=== PATIENT | male | born 2005 | race Two or more races ===

== ENCOUNTER 2024-07-28 09:24 | Inpatient (IN) | payer MEDICAID, OTHER ==
[~2024-07-28] VITALS: Ht 175.3 cm; Wt 82.0 kg
--- NOTE | 2024-07-28 09:58 | ECG ---
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
--- NOTE | 2024-07-28 10:27 | ECG ---
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
--- NOTE | 2024-07-28 10:30 | ED.PDOC ---
History of Present Illness HPI Comments 18-year-old male with PMHx Anxiety presents with a chief complaint of anxiety and tachycardia. Patient is speaking in full, complete sentences. Patient reports that he was seen at [facility] and [facility] for the same chief complaint and had cardiac work-ups and was lorenza Randall. Patient reports that "they did nothing for me" and that he was only diagnosed with "Tachycardia". Patient mentions that [facility] called him about his lab work and that he should come back to the hospital, but decided to come to [facility] instead. Patient is anxious at triage and rambling. Patient continuously checking his Apple Watch for his heart rate. Patient is also requesting an echocardiogram. Chief Complaint: Anxiety Time Seen by MD: 10:16 Reviewed Notes: Medications, Allergies Allergies: Coded Allergies: NO KNOWN ALLERGIES (Unverified , 07/28/24) Information Source: Patient Mode of Arrival: Ambulatory Severity: Moderate Timing: Days Duration: Since onset Prehospital treatment: None Past Medical History PAST MEDICAL HISTORY: Anxiety Surgical History: Denies all surgeries Family History Family History: Reviewed,noncontributory to illness Social History Smoker: Non-Smoker Alcohol: Denies ETOH Use Drugs: Denies Drug Use Lives In: Home Constitutional: denies: chills, diaphoresis, fatigue, fever, malaise, sweats, weakness, others EENTM: denies: blurred vision, double vision, ear bleeding, ear discharge, ear drainage, ear pain, ear ringing, eye pain, eye redness, hearing loss, mouth pain, mouth swelling, nasal discharge, nose bleeding, nose congestion, nose pain, photophobia, tearing, throat pain, throat swelling, voice changes, others Respiratory: denies: cough, hemoptysis, orthopnea, SOB at rest, shortness of breath, SOB with excertion, stridor, wheezing, others Cardiovascular: denies: chest pain, dizzy spells, diaphoresis, Dyspnea on exertion, edema, irregular heart beat, left arm pain, lightheadedness, palpitat ions, PND, syncope, others Gastrointestinal: denies: abdomen distended, abdominal pain, blood streaked bow els, constipated, diarrhea, dysphagia, difficulty swallowing, hematemesis, melena, nausea, poor appetite, poor fluid intake, rectal bleeding, rectal pain, vomiting, others Genitourinary: denies: burning, dysuria, flank pain, frequency, hematuria, incontinence, penile discharge, penile sore, pain, testicle pain, testicle swelling, urgency, others Neurological: denies: dizziness, fainting, headache, left sided numbness, left sided weakness, numbness, paresthesia, pre-existing deficit, right sided numbness, right sided weakness, seizure, speech problems, tingling, tremors, weakness, others Musculoskeletal: denies: back pain, gout, joint pain, joint swelling, muscle pain, muscle stiffness, neck pain, others Integumetry: denies: bruises, change in color, change in hair/nails, dryness, laceration, lesions, lumps, rash, wounds, others Allergic/Immunocompromised: denies: Difficulty Healing, Frequent Infections, Hives, Itching, others Hematologic/Lymphatic: denies: anemia, blood clots, easy bleeding, easy bruising, swollen glands, others Endocrine: denies: excessive hunger, excessive sweating, excessive thirst, excessive urination, flushing, intolerance to cold, intolerance to heat, unexplained weight gain, unexplained weight loss, others Psychiatric: reports: anxiety; denies: bipolar disorder, depression, hopeless, panic disorder, schizophrenia, sleepless, suicidal, others All Other Systems: Reviewed and Negative Physical Exam General Appearance: Moderate Distress, Normal HEENT: Normal ENT Inspection, Pharynx Normal, TMs Normal Neck: Full Range of Motion, Non-Tender, Normal, Normal Inspection Respiratory: Chest Non-Tender, Lungs Clear, No Accessory Muscle Use, No Respiratory Distress, Normal Breath Sounds Cardiovascular: No Edema, No JVD, No Murmur, No Gallop, Normal Peripheral Pulses, Tachycardia Breast Exam: Deferred Gastrointestinal: No Organomegaly, Non Tender, No Pulsatile Mass, Normal Bowel Sounds, Soft Genitalia: Deferred Pelvic: Deferred Rectal: Deferred Extremities: No calf tenderness, Normal capillary refill, Normal inspection, Normal range of motion, Non-tender, No pedal edema Musculoskeletal : Apperance: Normal Neurologic: Alert, health information systems technician II-XII nml as Tested, No Motor Deficits, Normal Affect, Normal Mood, No Sensory Deficits Cerebellar Function: Normal Reflexes: Normal Skin: Dry, Normal Color, Warm Peripheral Pulses: 3+ Radial (R), 3+ Radial (L) Lymphatic: No Adenopathy Was a procedure done? Was a procedure done?: No EKG EKG : Pulse Rate (adult): 132 [place]: Normal Cardiac Rhythm: ST Block: None Hypertrophy: None ST: Normal Differential Dx Considerations may include: Tachycardia Electrolyte imbalance X-Ray, Labs, Meds, VS Vital Signs Date Time Temp Pulse Resp B/P (MAP) Pulse Ox O2 Delivery O2 Flow Rate FiO2 07/28/24 10:31 132 07/28/24 10:24 132 07/28/24 10:20 98.1 137 24 146/84 (104) 99 98.1 109/64 (79) 07/28/24 09:41 98.3 116 17 152/106 (121) 95 07/28/24 09:29 122 Lab Test 07/28/24 10:48 Range/Units White Blood Count 9.3 4.4-10.8 10^3/uL Red Blood Count 4.96 4.5-5.90 10^6/uL Hemoglobin 14.2 13.5-17.5 g/dL Hematocrit 42.2 41.0-53.0 % Mean Corpuscular Volume 85.1 80.0-100.0 fL Mean Corpuscular Hemoglobin 28.6 28.0-32.0 pg Mean Corpuscular Hemoglobin Concent 33.7 32.0-36.0 g/dL Red Cell Distribution Width 13.9 11.8-14.3 % Platelet Count 268 140-450 10^3/uL Mean Platelet Volume 9.8 6.9-10.8 fL Neutrophils (%) (Auto) 66.0 37.0-80.0 % Lymphocytes (%) (Auto) 22.0 10.0-50.0 % Monocytes (%) (Auto) 9.8 0.0-12.0 % Eosinophils (%) (Auto) 1.9 0.0-7.0 % Basophils (%) (Auto) 0.3 0.0-2.0 % Neutrophils # (Auto) 6.1 1.6-8.6 10 ^3/uL Lymphocytes # (Auto) 2.0 0.4-5.4 10 ^3/uL Monocytes # (Auto) 0.9 0-1.3 10 ^3/uL Eosinophils # (Auto) 0.2 0-0.8 10 ^3/uL Basophils # (Auto) 0 0-0.2 10 ^3/uL Nucleated Red Blood Cells 0.1 % Sodium Level 140 136-145 mmol/L Potassium Level 3.4 L 3.5-5.1 mmol/L Chloride Level 108 H 98-107 mmol/L Carbon Dioxide Level 14 L 20-31 mmol/L Anion Gap 18 H 5-15 Blood Urea Nitrogen 10 9-23 mg/dL Creatinine 0.85 0.700-1.30 mg/dL Glomerular Filtration Rate Calc 128 >90 mL/min BUN/Creatinine Ratio 11.8 10.0-20.0 Serum Glucose 96 74-106 mg/dL Calcium Level 11.2 H 8.7-10.4 mg/dL Troponin I High Sensitivity 4 </=54 ng/L Current Medications Medications (Trade) Dose Ordered Sig/Temo Route Start Time Stop Time Status Last Admin Sodium Chloride 1,000 ml @ 1,000 mls/hr Q1H ONCE IV 07/28/24 10:30 07/28/24 11:29 DC 07/28/24 10:53 Lorazepam (Ativan Inj) 1 mg ONCE ONCE IV 07/28/24 10:30 07/28/24 10:31 DC 07/28/24 10:52 Ondansetron HCl (Zofran) 4 mg ONCE ONCE IV 07/28/24 10:30 07/28/24 10:31 DC 07/28/24 10:52 Patient alert. Increased heart rate. Saturation pristine on room air. Blood pressure slightly elevated. Potassium slightly low. EKG does show sinus tachycardia. Was given Ativan. Was given Zofran. Establish intravenous access. Was given fluids. Cardiac marker within normal limits. Echocardiogram. Cardiology consultation. Thyroid function tests. Explained to the patient. Continue cardiac monitoring. Chest x-ray reviewed does not show any acute changes. Time of 1ST Reevaluation: 10:46 Reevaluation 1ST: Unchanged Patient Education/Counseling: Diagnosis, Treatment, Prognosis Family Education/Counseling: Diagnosis, Treatment, Prognosis Departure 1 Departure Time of Disposition: 12:03 Impression: Primary Impression: Cardiomyopathy Qualified Codes: I42.9 - Cardiomyopathy, unspecified Additional Impression: Tachycardia Disposition: ADMITTED INPATIENT Admit to: Med Surg Condition: Guarded Critical Care Note Critical Care Time?: Yes (45 min-critical care time only) Critical care comment: Continues to have increased heart rate Stability Stability form required: No Heart Score Heart Score: Heart Score Response (Comments) Value History Slightly Suspicious 0 EKG Normal 0 Age <45 0 Risk Factors No known risk factors 0 Troponin Normal limit 0 Total 0 I personally scribed for DAPHNE BATES MD ([email or web address]) on 07/28/24 at 10:30. Electronically submitted by Van Gutierrez ([email or web address]). I personally scribed for DAPHNE BATES MD ([email or web address]) on 07/28/24 at 10:31. Electronically submitted by Van Gutierrez ([email or web address]). DAPHNE BATES MD Jul 28, 2024 10:30
[2024-07-28] MEDS: LORazepam 2MG/ML-1ML VIAL IV ONE (10:52)
[2024-07-28] MEDS: ONDANSETRON HCL 4 MG/2 ML VIAL IV ONE (10:52)
[2024-07-28] MEDS: SODIUM CHLORIDE 0.9% 1,000 ML IV ONE (10:53)
--- NOTE | 2024-07-28 11:14 | DVH ---
CHEST RADIOGRAPH Indication: sob Technique: Single frontal view of the chest was obtained Comparison: None FINDINGS: Lines and Tubes: None Lungs: No focal consolidation. Pleura: No effusion. No pneumothorax. Cardiomediastinal contours: Unremarkable Bones: No acute osseous abnormality. IMPRESSION: No acute cardiopulmonary disease.
[2024-07-28 11:27] LABS: Basophils # (auto) 0 10 ^3/uL (0-0.2); Basophils % (auto) 0.3 % (0.0-2.0); Eosinophils # (auto) 0.2 10 ^3/uL (0-0.8); Eosinophils % (auto) 1.9 % (0.0-7.0); Hematocrit 42.2 % (41.0-53.0); Hemoglobin 14.2 g/dL (13.5-17.5); Mean Corpuscular Hemoglobin 28.6 pg (28.0-32.0); Mean Corpuscular Hgb Conc. 33.7 g/dL (32.0-36.0); Mean Corpuscular Volume 85.1 fL (80.0-100.0); Monocytes # (auto) 0.9 10 ^3/uL (0-1.3); Monocytes % (auto) 9.8 % (0.0-12.0); Neutrophils # (auto) 6.1 10 ^3/uL (1.6-8.6); Nucleated Red Blood Cells % 0.1 %; Platelet Count (auto) 268 10^3/uL (140-450); Red Blood Cells 4.96 10^6/uL (4.5-5.90); Red Cell Distribution Width 13.9 % (11.8-14.3); White Blood Cell 9.3 10^3/uL (4.4-10.8)
[2024-07-28 11:47] LABS: Sodium 140 mmol/L (136-145)
[2024-07-28 11:48] LABS: Anion Gap 18 (5-15)
[2024-07-28 11:53] LABS: BUN/Creatinine Ratio 11.8 (10.0-20.0); Blood Urea Nitrogen 10 mg/dL (9-23); Glucose 96 mg/dL (74-106)
[2024-07-28 11:57] LABS: Calcium 11.2 mg/dL (8.7-10.4); Carbon Dioxide 14 mmol/L (20-31); Chloride 108 mmol/L (98-107); Potassium 3.4 mmol/L (3.5-5.1)
[2024-07-28 13:15] VITALS: PULSE 120; RESP 20; O2SAT 98
[2024-07-28] MEDS ORDERED: DOCUSATE SOD 100 MG CAP PO PRN (14:15)
[2024-07-28] MEDS ORDERED: ONDANSETRON HCL 4 MG/2 ML VIAL IV PRN (14:15)
[2024-07-28] MEDS ORDERED: MORPHINE SULFATE INJ 2 MG/ml SYRG IV PRN (14:15)
[2024-07-28] MEDS ORDERED: ACETAMINOPHEN 325 MG TAB PO PRN (14:15)
[2024-07-28] MEDS ORDERED: NITROGLYCERIN 0.4 MG SL TAB SL PRN (14:15)
--- NOTE | 2024-07-28 14:32 | DVHHP2 ---
History of Present Illness Reason for Visit: Tachycardia History of Present Illness Leland Abarca is a 18-year-old male with no significant past medical history who comes in due to tachycardia. The patient states he has been to multiple hospitals multiple times due to his anxiety and tachycardia and they are not helping him. They tell him his labs are normal and to follow up with his primary care provider. The patient states he wakes up and his heart rate is 120-140's. When he gets up or eats his heart rate goes even higher. He states he is scared to eat and that he is going to soon. Past Surgical History: None Smoke: No ALCOHOL: none Drugs: None Lives: with Family Domestic Violence: Neg Review of Systems Constitutional: No: Fever, Chills, Sweats, Weakness, Malaise, Other Eyes: No: Pain, Vision change, Conjunctivae inflammation, Eyelid inflammation, Other, Redness ENT: No: Ear pain, Ear discharge, Nose pain, Nose discharge, Nose congestion, Mouth pain, Mouth swelling, Throat pain, Throat swelling, Other Respiratory: No: Cough, Dry, Shortness of breath, SOB with excertion, Wheezing, Hemoptysis, Pleuritic Pain, Sputum, Wheezing, Other Cardiovascular: Palpitations; No: Chest Pain, Orthopnea, Paroxysmal Noc. Dyspnea, Edema, Lt Headedness, Other Gastrointestinal: No: Nausea, Vomiting, Abdominal Pain, Diarrhea, Constipation, Melena, Hematochezia, Other Genitourinary: No Dysuria, No Frequency, No Incontinence, No Hematuria, No Retention, No Other Musculoskeletal: No: other, neck pain, shoulder pain, arm pain, back pain, hand pain, leg pain, foot pain Skin: No: Rash, Lesions, Jaundice, Bruising, Other Neurological: No: Weakness, Numbness, Incoordination, Change in speech, Confusion, Seizures, Other Allergies: Coded Allergies: NO KNOWN ALLERGIES (Unverified , 07/28/24) Medications Current Medications Medications Dose Ordered Sig/Temo Route Start Time Stop Time Status Last Admin Dose Admin Acetaminophen/ Hydrocodone Bitart 1 tab Q4HP PRN PO 07/28/24 14:15 UNV Ondansetron HCl 4 mg Q4HP PRN IV 07/28/24 14:15 UNV Docusate Sodium 100 mg BIDPRN PRN PO 07/28/24 14:15 UNV Acetaminophen 650 mg Q6HP PRN PO 07/28/24 14:15 UNV Nitroglycerin 0.4 mg Q5MINP PRN SL 07/28/24 14:15 UNV Morphine Sulfate 2 mg Q30M PRN IV 07/28/24 14:15 UNV Exam Vital Signs Vital Signs Date Time Temp Pulse Resp B/P (MAP) Pulse Ox O2 Delivery O2 Flow Rate FiO2 07/28/24 14:00 121 20 130/79 (96) 99 07/28/24 13:15 Room Air* 0 21 07/28/24 10:20 98.1 98.1 General Appearance: Alert, Oriented X3, Cooperative, Other (anxious) HEENT: Atraumatic, PERRLA Respiratory: Clear to auscultation, Normal air movement Cardiovascular: Normal S1, Normal S2, Other (Tachycardia) Abdominal: Normal bowel sounds, Soft, No tenderness, No hepatospenomegaly Extremities: No clubbing, No cyanosis, No edema, Normal pulses Skin: No rashes, No breakdown, No significant lesion Neuro: Normal gait, Normal speech, Strength at 5/5 X4 ext, Normal tone Psych/Mental Status: Mental status NL, Mood NL Labs/Xrays Labs Test 07/28/24 10:48 Range/Units White Blood Count 9.3 4.4-10.8 10^3/uL Red Blood Count 4.96 4.5-5.90 10^6/uL Hemoglobin 14.2 13.5-17.5 g/dL Hematocrit 42.2 41.0-53.0 % Mean Corpuscular Volume 85.1 80.0-100.0 fL Mean Corpuscular Hemoglobin 28.6 28.0-32.0 pg Mean Corpuscular Hemoglobin Concent 33.7 32.0-36.0 g/dL Red Cell Distribution Width 13.9 11.8-14.3 % Platelet Count 268 140-450 10^3/uL Mean Platelet Volume 9.8 6.9-10.8 fL Neutrophils (%) (Auto) 66.0 37.0-80.0 % Lymphocytes (%) (Auto) 22.0 10.0-50.0 % Monocytes (%) (Auto) 9.8 0.0-12.0 % Eosinophils (%) (Auto) 1.9 0.0-7.0 % Basophils (%) (Auto) 0.3 0.0-2.0 % Neutrophils # (Auto) 6.1 1.6-8.6 10 ^3/uL Lymphocytes # (Auto) 2.0 0.4-5.4 10 ^3/uL Monocytes # (Auto) 0.9 0-1.3 10 ^3/uL Eosinophils # (Auto) 0.2 0-0.8 10 ^3/uL Basophils # (Auto) 0 0-0.2 10 ^3/uL Nucleated Red Blood Cells 0.1 % Sodium Level 140 136-145 mmol/L Potassium Level 3.4 L 3.5-5.1 mmol/L Chloride Level 108 H 98-107 mmol/L Carbon Dioxide Level 14 L 20-31 mmol/L Anion Gap 18 H 5-15 Blood Urea Nitrogen 10 9-23 mg/dL Creatinine 0.85 0.700-1.30 mg/dL Glomerular Filtration Rate Calc 128 >90 mL/min BUN/Creatinine Ratio 11.8 10.0-20.0 Serum Glucose 96 74-106 mg/dL Calcium Level 11.2 H 8.7-10.4 mg/dL Troponin I High Sensitivity 4 </=54 ng/L CHEST RADIOGRAPH FINDINGS: Lines and Tubes: None Lungs: No focal consolidation. Pleura: No effusion. No pneumothorax. Cardiomediastinal contours: Unremarkable Bones: No acute osseous abnormality. IMPRESSION: No acute cardiopulmonary disease. Assessment/Plan Assessment/Plan Assessment: Tachycardia, Severe anxiety, Plan: Admit to Tele, Cardiology, ECHO, Lipid panel, Mange/Monitor electrolytes closely, 2gm NA diet, Plan discussed with: Patient My Orders Orders - RALPH SHANKS Procedure Category Date Status Time Admit ADMIT 07/28/24 Transmitted 14:15 Code Status CODE 07/28/24 Transmitted 14:15 2 Gm Sodium Diet DIET 07/28/24 Transmitted Dinner Hydrocodone-Acet PHA 07/28/24 Logged 5/325mg Tab ([place] 14:15 Ondansetron Hcl PHA 07/28/24 Transmitted (Zofran) 14:15 Docusate Sodium PHA 07/28/24 Transmitted Capsule (Colace 14:15 Complete Blood Count LAB 07/29/24 Verified 04:00 Comprehensive LAB 07/29/24 Verified Metabolic Panel 04:00 Echo 2d Mode Cardiac US 07/28/24 Logged DOP 14:15 Condition: Serious [facility] 07/28/24 In Process 14:15 Acetaminophen Tablet PHA 07/28/24 Transmitted (Tylenol Tablet) 14:15 Nitroglycerin [facility] 07/28/24 Transmitted Sublingual (Ntrostat 14:15 Morphine Sulfate [facility] 07/28/24 Transmitted Injection 14:15 Stat Ekg For Chest [facility] 07/28/24 In Process Pain 14:15 Notify Md Of Changes [facility] 07/28/24 In Process From Base 14:15 Priming Mixture Carrier For [facility] 07/28/24 In Process 24 Hours 14:15 Emergency Dysrhythmia [facility] 07/28/24 In Process Protocol 14:15 Rhythm Strips Once [facility] 07/28/24 In Process Every Shift 14:15 Oxygen By Nasal RT 07/28/24 Transmitted Cannula 14:15 * Cardiology Consult CONS 07/28/24 Transmitted 14:15 Date of Service: Jul 28, 2024 Billing Provider: RALPH SHANKS Common Visit Codes: [id number] INP/OBS CARE (MOD) RALPH SHANKS Jul 28, 2024 14:32
[2024-07-28] MEDS: POTASSIUM CHL 20 Meq TABLET PO ONE (15:00)
--- NOTE | 2024-07-28 16:14 | DVHINCON2 ---
Date Seen: Jul 28, 2024 Referring Physician LUZ MARIA Beckman Reason for Consultation Tachycardia History of Present Illness This is a 18-year-old male patient who presents to the emergency room with chief complaint of tachycardia for three weeks. The patient reports being seen at multiple emergency rooms including [facility] and [facility] for the same reason and was told that he has anxiety. The patient reports being concerned about his heart rate so he decided to come to this facility for further evaluation. Initial twelve lead electrocardiogram reveals sinus tachycardia. 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 Significant past medical history includes anxiety. The patient denies any previous medical history. He reports checking his pulse through his Apple watch at home. He denies any illicit drug use and denies any caffeine intake. Past Medical History Past medical history reviewed. No other significant than mentioned above. Past Surgical History Denies all previous surgeries Family History Family history reviewed. Social History Denies the use of tobacco, alcohol or illicit drugs. Allergies: Coded Allergies: NO KNOWN ALLERGIES (Unverified , 07/28/24) Home Meds Denies any prescribed medications Current Medications Current Medications Medications (Trade) Dose Ordered Sig/Temo Route PRN Reason Start Time Stop Time Status Last Admin Acetaminophen/ Hydrocodone Bitart ([place] 5/325MG Tab) 1 tab Q4HP PRN PO MODERATE PAIN (4-6 PAIN SCALE) 07/28/24 14:15 Ondansetron HCl (Zofran) 4 mg Q4HP PRN IV NAUSEA / VOMITING 07/28/24 14:15 Docusate Sodium (Colace Capsule) 100 mg BIDPRN PRN PO FOR CONSTIPATION 07/28/24 14:15 Acetaminophen (Tylenol Tablet) 650 mg Q6HP PRN PO PAIN SCALE 1-3 OR TEMP>100.4 07/28/24 14:15 Nitroglycerin (Ntrostat Sublingual) 0.4 mg Q5MINP PRN SL FOR CHEST PAIN 07/28/24 14:15 Morphine Sulfate 2 mg Q30M PRN IV FOR CHEST PAIN 07/28/24 14:15 Review of Systems Constitutional: No symptom reported Ears, Nose, & Throat: No symptom reported Eyes: No symptom reported Neurological: No symptoms reported Pulmonary/Respiratory: No symptoms reported Cardiovascular: Tachycardia Gastrointestinal: No symptom reported Genitourinary: No symptom reported Musculoskeletal: No symptom reported Skin: No symptom reported Psychiatric: No symptom reported Endocrine: No symptom reported Hematologic/Lymphatic: No symptom reported Vital Signs Vital Signs Date Time Temp Pulse Resp B/P (MAP) Pulse Ox O2 Delivery O2 Flow Rate FiO2 07/28/24 14:00 121 20 130/79 (96) 99 07/28/24 13:15 Room Air* 0 21 07/28/24 10:20 98.1 98.1 Physical Exam General Appearance: Cooperative. Well-developed. Well-nourished. No acute distress. Pulmonary/Respiratory: Clear, bilateral breaths sounds. Cardiovascular/Chest: Regular rate and rhythm. Peripheral Pulses: 2+ Radial (R). 2+ Radial (L). 2+ Pedal (R). 2+ Pedal (L) Abdominal Exam: Normal bowel sounds. Ankle Exam: Negative ankle edema Lower extremities: Negative lower extremity edema Neuro/Mental Status: A/OX4, coherent. Thoughts/Psych: Normal thought pattern. Appropriate mood and affect. Good judgment and insight. Appearance: No acute distress. Skin Exam: Normal inspection. Normal color. Warm and dry. Labs/Diagnostic Data Labs Test 07/28/24 10:48 Range/Units White Blood Count 9.3 4.4-10.8 10^3/uL Red Blood Count 4.96 4.5-5.90 10^6/uL Hemoglobin 14.2 13.5-17.5 g/dL Hematocrit 42.2 41.0-53.0 % Mean Corpuscular Volume 85.1 80.0-100.0 fL Mean Corpuscular Hemoglobin 28.6 28.0-32.0 pg Mean Corpuscular Hemoglobin Concent 33.7 32.0-36.0 g/dL Red Cell Distribution Width 13.9 11.8-14.3 % Platelet Count 268 140-450 10^3/uL Mean Platelet Volume 9.8 6.9-10.8 fL Neutrophils (%) (Auto) 66.0 37.0-80.0 % Lymphocytes (%) (Auto) 22.0 10.0-50.0 % Monocytes (%) (Auto) 9.8 0.0-12.0 % Eosinophils (%) (Auto) 1.9 0.0-7.0 % Basophils (%) (Auto) 0.3 0.0-2.0 % Neutrophils # (Auto) 6.1 1.6-8.6 10 ^3/uL Lymphocytes # (Auto) 2.0 0.4-5.4 10 ^3/uL Monocytes # (Auto) 0.9 0-1.3 10 ^3/uL Eosinophils # (Auto) 0.2 0-0.8 10 ^3/uL Basophils # (Auto) 0 0-0.2 10 ^3/uL Nucleated Red Blood Cells 0.1 % Sodium Level 140 136-145 mmol/L Potassium Level 3.4 L 3.5-5.1 mmol/L Chloride Level 108 H 98-107 mmol/L Carbon Dioxide Level 14 L 20-31 mmol/L Anion Gap 18 H 5-15 Blood Urea Nitrogen 10 9-23 mg/dL Creatinine 0.85 0.700-1.30 mg/dL Glomerular Filtration Rate Calc 128 >90 mL/min BUN/Creatinine Ratio 11.8 10.0-20.0 Serum Glucose 96 74-106 mg/dL Hemoglobin A1c 5.0 <5.7 % A1C Calcium Level 11.2 H 8.7-10.4 mg/dL Troponin I High Sensitivity 4 </=54 ng/L Thyroid Stimulating Hormone (TSH) 2.95 0.55-4.78 uIU/mL Assessment Sinus tachycardia with multiple PVCs Rule out structural heart disease Hypokalemia Anxiety Plan/Recommendation We will continue with the following plan/recommendations (Dr. Ching): We will proceed with obtaining a transthoracic echocardiogram to evaluate cardiac function. In the meantime, we will initiate the patient on a low-dose beta-vidhi. We will also recommend to monitor and replete electrolytes as needed. Check urine drug screen and TSH level. Continue with close cardiac surveillance. Thank you for allowing us to care for this patient. Please call with any questions or concerns. Critical care time spent: 41 minutes This medical document was created using an electronic medical record system with voice recognition software and computerized dictation system. Although this document has been carefully reviewed, there might still be some phonetic and typographical errors. Occasional wrong-word or ``sound-alike substitutions may have occurred due to the inherent limitations of voice recognition software. These areas are purely typographical due to imperfections of the software programs and do not reflect any compromise in the patient's medical care. Please read the chart carefully and recognize, using context, where these substitutions have occurred. Plan discussed with: Patient NYHA Physical activity limitations: NA Date of Service: Jul 28, 2024 Billing Provider: ISA GREGG Cardiology Common Codes: [id number] INP/OBS CARE (High) Cardiology Consultation Codes: [id number] CONSULT <45MIN ISA GREGG Jul 28, 2024 16:14
--- NOTE | 2024-07-28 17:49 | DVHSR ---
APPROVED REPORT EXAM: Two-dimensional and M-mode echocardiogram with Doppler and color Doppler. Blood Pressure: 130/79 mmHg INDICATION Tachycardia RISK FACTORS Height: 5'9", Weight: 186 DIMENSIONS LVDd4.0 (3.8-5.7cm)LA (2D)3.5 (1.9-4.0cm)Aortic Root2.9 (2.0-3.7cm) LVDs2.8 (2.5-4.0cm)LA (MM) (1.9-4.0cm)Aortic Cusp Exc1.6 (1.5-2.0cm) EF (%) 57.0 (55-70%)Rt. Atrium3.3 (1.9-4.0cm)Asc. Aorta cm IVSd1.1 (0.7-1.1cm)RV (D) (1.8-2.4cm) PWd1.0 (0.7-1.1cm) Mitral Valve MitralMitral Stenosis E wave0.84m/sMV Mean GR.mmHg A wave0.68m/sMV Peak GR.mmHg E/A ratio1.22D MVAcm2 DECEL [id number] 1/2 [place] Aortic Valve Aortic ValveAortic Stenosis V10.92m/[place] Mean GR.3mmHg V21.42m/[place] Peak GR.8mmHg LVOT Diameter2.1 (1.8-2.4cm)Doppler AVA2.24cm2 Pulmonic Valve V21.36m/s Tricuspid Valve TR Velocity2.74m/s [id number] Other Information Quality : Rhythm : Tachycardia, PVC's Technically limited study due to body habitus. Conclusion lvef 60% by visual estimate normal rv function no severe valve abnormaliteis noted
[2024-07-28 18:16] LABS: Urine Bacteria None Seen /hpf (None Seen); Urine Blood Negative /uL (Negative); Urine Clarity Clear (Clear); Urine Color Light-Yellow (Yellow); Urine Mucus FEW (None Seen); Urine Protein, UAD Negative (Negative); Urine Specific Gravity 1.019 (1.001-1.035); Urine Squamous Epithelial Cell None Seen /hpf (<5); Urine Urobilinogen Normal (Negative); Urine WBC 1 /HPF (0-3); Urine pH 5.5 (5.0-9.0)
[2024-07-28 18:59] LABS: Potassium 4.3 mmol/L (3.5-5.1)
[2024-07-28] MEDS: METOPROLOL TARTRATE 25 MG TAB PO SCH (21:59)
[2024-07-29] VITALS (8 sets, daily range): BP systolic 113–131; BP diastolic 63–78; PULSE 94–114; RESP 16–18; TEMP 97.4–98.6; O2SAT 96–99
[2024-07-29 06:04] LABS: Basophils # (auto) 0 10 ^3/uL (0-0.2); Basophils % (auto) 0.4 % (0.0-2.0); Eosinophils # (auto) 0.2 10 ^3/uL (0-0.8); Eosinophils % (auto) 2.9 % (0.0-7.0); Hematocrit 40.7 % (41.0-53.0); Hemoglobin 13.6 g/dL (13.5-17.5); Lymphocytes % (auto) 23.9 % (10.0-50.0); Mean Corpuscular Hemoglobin 28.7 pg (28.0-32.0); Mean Corpuscular Hgb Conc. 33.5 g/dL (32.0-36.0); Mean Corpuscular Volume 85.6 fL (80.0-100.0); Monocytes # (auto) 0.8 10 ^3/uL (0-1.3); Monocytes % (auto) 9.4 % (0.0-12.0); Neutrophils # (auto) 5.4 10 ^3/uL (1.6-8.6); Neutrophils % (auto) 63.4 % (37.0-80.0); Nucleated Red Blood Cells % 0.2 %; Platelet Count (auto) 258 10^3/uL (140-450); Red Blood Cells 4.75 10^6/uL (4.5-5.90); Red Cell Distribution Width 13.9 % (11.8-14.3); White Blood Cell 8.5 10^3/uL (4.4-10.8)
[2024-07-29 06:09] LABS: Alanine Aminotransferase 21 U/L (7-40); Alkaline Phosphatase 74 U/L (46-116); Anion Gap 13 (5-15); BUN/Creatinine Ratio 9.4 (10.0-20.0); Chloride 106 mmol/L (98-107); Glucose 94 mg/dL (74-106); Potassium 4.1 mmol/L (3.5-5.1); Sodium 138 mmol/L (136-145)
[2024-07-29 06:10] LABS: Bilirubin, Total 0.6 mg/dL (0.2-1.0); Total Protein 7.8 g/dL (5.7-8.2)
[2024-07-29 06:11] LABS: Albumin 5.1 g/dL (3.2-4.8); Aspartate Aminotransferase 11 U/L (13-40); Blood Urea Nitrogen 8 mg/dL (9-23); Calcium 10.5 mg/dL (8.7-10.4); Carbon Dioxide 19 mmol/L (20-31)
[2024-07-29] MEDS: MAGNESIUM OXIDE 400 MG TAB PO SCH (09:10)
--- NOTE | 2024-07-29 14:13 | DVHPN2 ---
Consult Progress Note Subjective Other Systems: Patient in normal sinus rhythm/ sinus tachycardia (rate low 100's) at time of assessment in ER holding area. Objective vital signs Vital Sign Date Time Temp Pulse Resp B/P (MAP) Pulse Ox O2 Delivery O2 Flow Rate FiO2 07/29/24 13:00 97.8 111 17 131/77 (95) 98 97.8 07/29/24 05:18 Room Air* 0 21 Total Intake and Output 07/28/24 07/28/24 07/29/24 15:00 23:00 07:00 Intake Total 1000 ml Balance 1000 ml medications Current Medications Medications Dose Ordered Sig/Temo Route Start Time Stop Time Status Last Admin Dose Admin Acetaminophen/ Hydrocodone Bitart 1 tab Q4HP PRN PO 07/28/24 14:15 Ondansetron HCl 4 mg Q4HP PRN IV 07/28/24 14:15 Docusate Sodium 100 mg BIDPRN PRN PO 07/28/24 14:15 Acetaminophen 650 mg Q6HP PRN PO 07/28/24 14:15 Nitroglycerin 0.4 mg Q5MINP PRN SL 07/28/24 14:15 Morphine Sulfate 2 mg Q30M PRN IV 07/28/24 14:15 Metoprolol Tartrate 12.5 mg BID PO 07/28/24 22:00 07/29/24 09:10 12.5 MG Magnesium Oxide 400 mg DAILY PO 07/29/24 10:00 07/29/24 09:10 400 MG Sodium Chloride 1,000 ml @ 100 mls/hr Q10H IV 07/29/24 14:00 Examination: GENERAL:Normal, LUNGS:Normal, CVS:Normal, NEURO:Normal laboratory and microbiology Laboratory Tests 07/29/24 05:32 Test 07/29/24 05:32 Range/Units Serum Glucose 94 74-106 mg/dL Problem List/Assessment/Plan Problem List/Assessment/Plan Sinus tachycardia with multiple PVCs Hypokalemia Hypercalcemia Anxiety Plan/Recommendation (Dr. Ching): Plan discussed and reviewed with . Transthoracic echocardiogram reveals EF 60%. Continue low-dose beta-vidhi. We will also recommend to monitor and replete electrolytes as needed. At this time, there is no further inpatient cardiac workup deemed necessary. Thank you for allowing us to care for this patient. Please call with any questions or concerns. This medical document was created using an electronic medical record system with voice recognition software and computerized dictation system. Although this document has been carefully reviewed, there might still be some phonetic and typographical errors. Occasional wrong-word or ``sound-alike substitutions may have occurred due to the inherent limitations of voice recognition software. These areas are purely typographical due to imperfections of the software programs and do not reflect any compromise in the patient's medical care. Please read the chart carefully and recognize, using context, where these substitutions have occurred Plan discussed with: Patient Date of Service: Jul 29, 2024 Billing Provider: ISA GREGG Common Visit Codes: [id number] INP/OBS CARE(HIGH) ISA GREGG Jul 29, 2024 14:13
[2024-07-29] MEDS: SODIUM CHLORIDE 0.9% 1,000 ML IV SCH (14:16)
--- NOTE | 2024-07-29 15:12 | DVHPN2 ---
Subjective Continues to report palpitations, high heart rate, anxiety. Reviewed: Care Plan, H&P, Labs, Medications Changes from previous H/P or p: No Changes General: Per HPI Eyes: No Pain, No Vision change, No Conjunctivae inflammation, No Eyelid inflammation, No Other, No Redness ENT: No Ear pain, No Ear discharge, No Nose pain, No Nose discharge, No Nose congestion, No Mouth pain, No Mouth swelling, No Throat pain, No Throat swelling, No Other Cardiovascular: No Chest Pain; Palpitations; No Orthopnea, No Paroxysmal Noc. Dyspnea, No Edema, No Lt Headedness, No Other Respiratory: No Cough, No Dry, No Shortness of breath, No SOB with excertion, No Wheezing, No Hemoptysis, No Pleuritic Pain, No Sputum, No Other Gastrointestinal: No Nausea, No Vomiting, No Abdominal Pain, No Diarrhea, No Constipation, No Melena, No Hematochezia, No Other Genitourinary: No Dysuria, No Frequency, No Incontinence, No Hematuria, No Retention, No Other Musculoskeletal: No other, No neck pain, No shoulder pain, No arm pain, No back pain, No hand pain, No leg pain, No foot pain Skin: No Rash, No Lesions, No Jaundice, No Bruising, No Other Objective Vitals Vital Signs Date Time Temp Pulse Resp B/P (MAP) Pulse Ox O2 Delivery O2 Flow Rate FiO2 07/29/24 13:00 97.8 111 17 131/77 (95) 98 97.8 07/29/24 05:18 Room Air* 0 21 Intake/Output Intake and Output 07/29/24 07:00 Intake Total 1000 ml Balance 1000 ml IV Total 1000 ml General Appearance: Alert, Oriented X3, Cooperative, No acute distress HEENT: Atraumatic, PERRLA Lungs: Clear to auscultation, Normal air movement Cardiovascular: Normal S1, Normal S2, Other (Sinus tachycardia with unifocal PVC) Abdomen: Normal bowel sounds, Soft, No tenderness Back: Flank Tenderness, Midline Tenderness Neuro: Normal gait, Normal speech Skin: Dry, Intact Psych/Mental Status: Mental status NL, Mood NL Medications Current Medications Medications Dose Ordered Sig/Temo Route Start Time Stop Time Status Last Admin Dose Admin Acetaminophen/ Hydrocodone Bitart 1 tab Q4HP PRN PO 07/28/24 14:15 Ondansetron HCl 4 mg Q4HP PRN IV 07/28/24 14:15 Docusate Sodium 100 mg BIDPRN PRN PO 07/28/24 14:15 Acetaminophen 650 mg Q6HP PRN PO 07/28/24 14:15 Nitroglycerin 0.4 mg Q5MINP PRN SL 07/28/24 14:15 Morphine Sulfate 2 mg Q30M PRN IV 07/28/24 14:15 Metoprolol Tartrate 12.5 mg BID PO 07/28/24 22:00 07/29/24 09:10 12.5 MG Magnesium Oxide 400 mg DAILY PO 07/29/24 10:00 07/29/24 09:10 400 MG Sodium Chloride 1,000 ml @ 100 mls/hr Q10H IV 07/29/24 14:00 07/29/24 14:16 100 MLS/HR Laboratory Results Laboratory Tests 07/29/24 05:32 Chemistry Test 07/28/24 18:30 07/29/24 05:32 Magnesium Level 2.0 mg/dL (1.6-2.6) Albumin 5.1 g/dL (3.2-4.8) H Calcium Level 10.5 mg/dL (8.7-10.4) H Total Protein 7.8 g/dL (5.7-8.2) LFT Test 07/29/24 05:32 Alanine Aminotransferase (ALT) 21 U/L (7-40) Alkaline Phosphatase 74 U/L (46-116) Aspartate Amino Transferase (AST) 11 U/L (13-40) L Total Bilirubin 0.6 mg/dL (0.2-1.0) Urinalysis Test 07/28/24 18:07 Urine Color Light-yellow (Yellow) Urine Clarity Clear (Clear) Urine pH 5.5 (5.0-9.0) Urine Specific [place] 1.019 (1.001-1.035) Urine Protein Negative (Negative) Urine Ketones 3+ (Negative) H Urine Blood Negative /uL (Negative) Urine Nitrite Negative (Negative) Urine Bilirubin Negative (Negative) Urine Urobilinogen Normal mg/dL (Negative) Urine Leukocyte Esterase Negative /uL (Negative) Urine RBC 1 /hpf (0 - 3) Urine Microscopic WBC 1 /HPF (0-3) Urine Squamous Epithelial Cells None seen /hpf (<5) Urine Bacteria None seen /hpf (None Seen) Urine Mucus Few (None Seen) Urine Glucose Normal mg/dL (Normal) Labs and/or images reviewed: Labs reviewed by me, Image(s) reviewed by me Assessment/Plan Assessment/Plan Impression: -metabolic acidosis -sinus tachycardia with unifocal PVCs -anxiety -hypokalemia -hypercalcemia Plan: -restart IV hydration -cardiology consultation: Echocardiogram reviewed. Patient was placed on Mag oxide and low-dose beta-vidhi -potassium replacement -psychiatry consultation -check ESR, CRP -UDS pending -repeat labs in a.m. Total time spent with patient discussing and formulating plan of care: 35 minutes. This medical document was created using an electronic medical record system with [employer] dictation system. Although this document has been carefully reviewed, there may still be some phonetic and typographical errors. These areas are purely typographical due to imperfections of the software programs, and do not reflect any compromise in the patient's medical care. Plan discussed with: Patient, Other (RN) My Orders Orders - MONROE LEON NP Procedure Category Date Status Time Parathyroid Hormone LAB 07/29/24 In Process Intact 13:51 Sodium Chloride 0.9% PHA 07/29/24 In Process 14:00 Soc Telemed Psych CONS 07/29/24 Transmitted Consult 13:51 Erythrocyte LAB 07/29/24 Verified Sedimentation Rate 15:07 C-Reactive Protein LAB 07/29/24 Verified 15:07 Date of Service: Jul 29, 2024 Billing Provider: MONROE LEON NP Common Visit Codes: [id number] INP/OBS CARE(HIGH) MONROE LEON NP Jul 29, 2024 15:12
[2024-07-29 15:30] LABS: Magnesium 2.2 mg/dL (1.6-2.6)
[2024-07-29 16:17] LABS: Amphetamine Screen, Urine Neg (NEGATIVE); Barbiturate Scree,Urine Neg (NEGATIVE); Benzodiazephine Screen, Urine Neg (NEGATIVE); Cannabinoid Screen, Urine Neg (NEGATIVE); Cocaine Screen, Urine Neg (NEGATIVE); Opiate Scree,Urine Neg (NEGATIVE); Phencyclidine Screen, Urine Neg (NEGATIVE)
[2024-07-29 16:39] LABS: Erythrocyte Sedimentation Rate 36 mm/hr (0-20)
[2024-07-30] VITALS (7 sets, daily range): BP systolic 106–120; BP diastolic 55–74; PULSE 84–118; RESP 16–19; TEMP 36.3; O2SAT 93–100
[2024-07-30] MEDS: HYDROcodone-ACET 5/325MG TAB PO PRN (09:37)
[2024-07-30] MEDS: KETOROLAC TROMETH 30 MG/ML 1ML VIAL IV ONE (13:30)
[2024-07-30] MEDS ORDERED: IOHEXOL 300 MG/ML 100ML BOTTLE IJ ONE (14:56)
--- NOTE | 2024-07-30 14:56 | DVHINCON2 ---
Date of Service if different f: Jul 30, 2024 Consultation ([facility]) Consulting Physician: IKNG ROBERTSON MD Labs Laboratory Tests Test 07/28/24 10:48 07/28/24 18:07 07/28/24 18:30 07/29/24 04:32 Hemoglobin A1c 5.0 % A1C (<5.7) Troponin I High Sensitivity 4 ng/L (</=54) Triglycerides Level 91 mg/dL (< 150) Cholesterol Level 128 mg/dL (< 200) LDL Cholesterol 81 mg/dL (< 100) HDL Cholesterol 28 mg/dL (40-59) Thyroid Stimulating Hormone (TSH) 2.95 uIU/mL (0.55-4.78) Urine Color Light-yellow (Yellow) Urine Clarity Clear (Clear) Urine pH 5.5 (5.0-9.0) Urine Specific [place] 1.019 (1.001-1.035) Urine Protein Negative (Negative) Urine Ketones 3+ (Negative) Urine Blood Negative /uL (Negative) Urine Nitrite Negative (Negative) Urine Bilirubin Negative (Negative) Urine Urobilinogen Normal mg/dL (Negative) Urine Leukocyte Esterase Negative /uL (Negative) Urine RBC 1 /hpf (0 - 3) Urine Microscopic WBC 1 /HPF (0-3) Urine Squamous Epithelial Cells None seen /hpf (<5) Urine Bacteria None seen /hpf (None Seen) Urine Mucus Few (None Seen) Urine Glucose Normal mg/dL (Normal) Urine Opiates Screen Neg (NEGATIVE) Urine Fentanyl Screen Neg (NEGATIVE) Urine Barbiturates Screen Neg (NEGATIVE) Urine Phencyclidine Screen Neg (NEGATIVE) Urine Amphetamines Screen Neg (NEGATIVE) Urine Benzodiazepines Screen Neg (NEGATIVE) Urine Cocaine Screen Neg (NEGATIVE) Urine Cannabinoids Screen Neg (NEGATIVE) Magnesium Level 2.0 mg/dL (1.6-2.6) Parathyroid Hormone (Intact) 43.1 pg/mL (18.4-80.1) Test 07/29/24 05:32 07/29/24 15:45 White Blood Count 8.5 10^3/uL (4.4-10.8) Red Blood Count 4.75 10^6/uL (4.5-5.90) Hemoglobin 13.6 g/dL (13.5-17.5) Hematocrit 40.7 % (41.0-53.0) Mean Corpuscular Volume 85.6 fL (80.0-100.0) Mean Corpuscular Hemoglobin 28.7 pg (28.0-32.0) Mean Corpuscular Hemoglobin Concent 33.5 g/dL (32.0-36.0) Red Cell Distribution Width 13.9 % (11.8-14.3) Platelet Count 258 10^3/uL (140-450) Mean Platelet Volume 9.5 fL (6.9-10.8) Neutrophils (%) (Auto) 63.4 % (37.0-80.0) Lymphocytes (%) (Auto) 23.9 % (10.0-50.0) Monocytes (%) (Auto) 9.4 % (0.0-12.0) Eosinophils (%) (Auto) 2.9 % (0.0-7.0) Basophils (%) (Auto) 0.4 % (0.0-2.0) Neutrophils # (Auto) 5.4 10 ^3/uL (1.6-8.6) Lymphocytes # (Auto) 2.0 10 ^3/uL (0.4-5.4) Monocytes # (Auto) 0.8 10 ^3/uL (0-1.3) Eosinophils # (Auto) 0.2 10 ^3/uL (0-0.8) Basophils # (Auto) 0 10 ^3/uL (0-0.2) Nucleated Red Blood Cells 0.2 % Sodium Level 138 mmol/L (136-145) Potassium Level 4.1 mmol/L (3.5-5.1) Chloride Level 106 mmol/L (98-107) Carbon Dioxide Level 19 mmol/L (20-31) Anion Gap 13 (5-15) Blood Urea Nitrogen 8 mg/dL (9-23) Creatinine 0.85 mg/dL (0.700-1.30) Glomerular Filtration Rate Calc 128 mL/min (>90) BUN/Creatinine Ratio 9.4 (10.0-20.0) Serum Glucose 94 mg/dL (74-106) Calcium Level 10.5 mg/dL (8.7-10.4) Total Bilirubin 0.6 mg/dL (0.2-1.0) Aspartate Amino Transf (AST/SGOT) 11 U/L (13-40) Alanine Aminotransferase (ALT/SGPT) 21 U/L (7-40) Alkaline Phosphatase 74 U/L (46-116) C-Reactive Protein High Sensitivity 4.69 mg/dL (<1.0) Total Protein 7.8 g/dL (5.7-8.2) Albumin 5.1 g/dL (3.2-4.8) Erythrocyte Sedimentation Rate 36 mm/hr (0-20) Appetite: Limited Appearance: Stated age, Groomed Psychomotor activity: WNL Behavioral: Cooperative Eye contact: Appropriate Speech: WNL Affect: Mood Congruent Mood: Anxious Thought processes: Linear/Goal-directed Thought content: WNL Suicidal ideations: Absent Homicidal ideations: Absent Orientation: Person, Place, Time, Situation Memory intact: Recent Intellect: Average Abstractability: WNL Concentration: Adequate Attention: Adequate Judgement: WNL Insight: Fair Vitals Vital Signs Date Time Temp Pulse Resp B/P (MAP) Pulse Ox O2 Delivery O2 Flow Rate FiO2 07/30/24 12:14 97.4 84 19 106/59 (75) 97 97.4 07/30/24 08:00 Room Air* 0 21 Current medications Current Medications Medications Dose Ordered Sig/Temo Route Start Time Stop Time Status Last Admin Dose Admin Acetaminophen/ Hydrocodone Bitart 1 tab Q4HP PRN PO 07/28/24 14:15 07/30/24 09:37 1 TAB Ondansetron HCl 4 mg Q4HP PRN IV 07/28/24 14:15 Docusate Sodium 100 mg BIDPRN PRN PO 07/28/24 14:15 Acetaminophen 650 mg Q6HP PRN PO 07/28/24 14:15 Nitroglycerin 0.4 mg Q5MINP PRN SL 07/28/24 14:15 Morphine Sulfate 2 mg Q30M PRN IV 07/28/24 14:15 Metoprolol Tartrate 12.5 mg BID PO 07/28/24 22:00 07/30/24 09:36 12.5 MG Magnesium Oxide 400 mg DAILY PO 07/29/24 10:00 07/30/24 09:35 400 MG Sodium Chloride 1,000 ml @ 100 mls/hr Q10H IV 07/29/24 14:00 07/30/24 04:55 100 MLS/HR Treatment plan discussed: With staff Medication adjusted: Yes Diagnosis: unspecified anxiety disorder Plan : patient reports ongoing anxiety symptoms worsened in the last 3 weeks. He denies suicidal/homicidal ideation Believe pt would benefit from use of antidepressants to improve mood and anxiety Recommend sertraline 25mg po daily x7 days then increase to 50mg po daily. Add Hydroxyzine pamoate 50mg po tid prn anxiety/insomnia. pt may discharge after medical clearance, recommend follow up with mental health provider for medication management and therapy, preferably CBT. Pt agrees with plan, side effects including BB warning explained and he verbalized understanding. Also explained antidepressants can take 4-6 weeks to show improvement. History of Present Illness Reason for Consult : anxiety HPI : This is a 18-year-old male with no known prior psychiatric history, he presents to the hospital for tachycardia worsened in the last 3 weeks. Patient is evaluated via telepsychiatry, he reports 3 weeks ago, he woke feeling like he may have an aneurysm because he felt something cold on his neck. Since this time, his heart rate has been elevated, checks on apple watch, can be as high as 140. He reports he has been somewhat of an anxious kid. He is frequently for uncomfortable with large crowds but has been able to manage. He reports being bullied since age 9 in school. He started kickboxing which has helped him. He has been unable to kick-box due to increased anxiety. He reports symptoms are random, no known trigger. His symptoms include feeling a sense of doom or feeling like he is going to , increased HR, SOB, nausea. He also reports being unable to sleep in the last 3 weeks because he fears he will if he goes to sleep. He is more anxious about being in hospitals and often questioning medication been given. He fears receiving too many medications and not feeling symptoms have improved. He anxiety has been daily, no relief. He worries mostly about his health. He reports not having papers to hold employment, this is likely another trigger for his anxiety given current climate. He denies suicidal/homicidal ideation. he denies auditory/visual hallucinations. He denies known hx of leonora symptoms. His sleep and appetite are impaired. He denies feeling depressed or hopeless. He wants to feel better so he can return to his normal activities. Past Psychiatric History : He denies past psych admissions or holds. He denies hx of suicide attempts. He did see a psychologist x1 recently felt better only briefly He denies current mental health follow up. He denies hx of psychotropic medications. Past Medical History : Hx of tachycardia Social History : He lives with both parents. He is not employed currently. He denies any current or past substance use including nicotine, marijuana or alcohol. His toxicology is negative for substances. He has hx of trauma with bullying starting at age 9, denies other hx of abuse. He reports mom and dad with hx of trauma and anxiety, no known medication use. JOSE G QIU DNP Jul 30, 2024 14:56
--- NOTE | 2024-07-30 15:39 | DVH ---
CTA Chest with intravenous contrast INDICATION: chest pain, rule out PE COMPARISON: None TECHNIQUE: Multidetector spiral CTA of the chest was performed of the chest with intravenous contrast . PULMONARY ANGIOGRAPHY PROTOCOL was utilized using a bolus-tracking technique centered on the main p ulmonary artery. Axial, coronal and sagittal multiplanar and MIP reformats were performed. CONTRAST: Type of contrast: Omni 350 Contrast injected: 100 ml Radiation dose : Chest: CTDI volume is 15.98 mGy. Dose-length product is 588.1 mGy*cm The dose indicators for CT are the volume computed Tomography (CT) dose Index (CTDIvol) and the dose Length product (DLP), and are measured in units of mGy and mGy-cm, respectively. These indicators are not patient dose, but values generated from the CT scanner acquisition factors. The report includes radiation exposure data for exposures received during this examination. Findings: Pulmonary artery: No pulmonary embolism Lower neck: Normal thyroid. Lungs: No focal consolidation, pleural effusion or pneumothorax. Heart/Vascular Structures: Normal heart size. No pericardial effusion. Lymph Nodes: No adenopathy Pleura: No pleural effusion or significant pneumothorax. Musculoskeletal: No acute osseous abnormality. Soft tissues: Normal. Upper abdomen: Limited portions of the upper abdomen are unremarkable. IMPRESSION: 1. No pulmonary embolism. 2. No acute thoracic finding. HS:Y
[2024-07-30] MEDS ORDERED: SERT25TA28 PO (16:14)
[2024-07-30] MEDS ORDERED: SERT-289 PO (16:14)
--- NOTE | 2024-07-30 16:19 | DVHDS2 ---
Discharge Summary Date of Admission Jul 28, 2024 at 14:15 Date of Discharge: Jul 30, 2024 Admitting Diagnosis Severe anxiety, tachycardia Labs/Diagnostic Data: Laboratory Results Test 07/29/24 15:45 07/29/24 05:32 07/29/24 04:32 07/28/24 18:30 Erythrocyte Sedimentation Rate 36 mm/hr (0-20) White Blood Count 8.5 10^3/uL (4.4-10.8) Red Blood Count 4.75 10^6/uL (4.5-5.90) Hemoglobin 13.6 g/dL (13.5-17.5) Hematocrit 40.7 % (41.0-53.0) Mean Corpuscular Volume 85.6 fL (80.0-100.0) Mean Corpuscular Hemoglobin 28.7 pg (28.0-32.0) Mean Corpuscular Hemoglobin Concent 33.5 g/dL (32.0-36.0) Red Cell Distribution Width 13.9 % (11.8-14.3) Platelet Count 258 10^3/uL (140-450) Mean Platelet Volume 9.5 fL (6.9-10.8) Neutrophils (%) (Auto) 63.4 % (37.0-80.0) Lymphocytes (%) (Auto) 23.9 % (10.0-50.0) Monocytes (%) (Auto) 9.4 % (0.0-12.0) Eosinophils (%) (Auto) 2.9 % (0.0-7.0) Basophils (%) (Auto) 0.4 % (0.0-2.0) Neutrophils # (Auto) 5.4 10 ^3/uL (1.6-8.6) Lymphocytes # (Auto) 2.0 10 ^3/uL (0.4-5.4) Monocytes # (Auto) 0.8 10 ^3/uL (0-1.3) Eosinophils # (Auto) 0.2 10 ^3/uL (0-0.8) Basophils # (Auto) 0 10 ^3/uL (0-0.2) Nucleated Red Blood Cells 0.2 % Sodium Level 138 mmol/L (136-145) Potassium Level 4.1 mmol/L (3.5-5.1) Chloride Level 106 mmol/L (98-107) Carbon Dioxide Level 19 mmol/L (20-31) Anion Gap 13 (5-15) Blood Urea Nitrogen 8 mg/dL (9-23) Creatinine 0.85 mg/dL (0.700-1.30) Glomerular Filtration Rate Calc 128 mL/min (>90) BUN/Creatinine Ratio 9.4 (10.0-20.0) Serum Glucose 94 mg/dL (74-106) Calcium Level 10.5 mg/dL (8.7-10.4) Total Bilirubin 0.6 mg/dL (0.2-1.0) Aspartate Amino Transferase (AST) 11 U/L (13-40) Alanine Aminotransferase (ALT) 21 U/L (7-40) Alkaline Phosphatase 74 U/L (46-116) C-Reactive Protein High Sensitivity 4.69 mg/dL (<1.0) Total Protein 7.8 g/dL (5.7-8.2) Albumin 5.1 g/dL (3.2-4.8) Parathyroid Hormone (Intact) 43.1 pg/mL (18.4-80.1) Magnesium Level 2.0 mg/dL (1.6-2.6) Test 07/28/24 18:07 07/28/24 10:48 Urine Color Light-yellow (Yellow) Urine Clarity Clear (Clear) Urine pH 5.5 (5.0-9.0) Urine Specific [place] 1.019 (1.001-1.035) Urine Protein Negative (Negative) Urine Ketones 3+ (Negative) Urine Blood Negative /uL (Negative) Urine Nitrite Negative (Negative) Urine Bilirubin Negative (Negative) Urine Urobilinogen Normal mg/dL (Negative) Urine Leukocyte Esterase Negative /uL (Negative) Urine RBC 1 /hpf (0 - 3) Urine Microscopic WBC 1 /HPF (0-3) Urine Squamous Epithelial Cells None seen /hpf (<5) Urine Bacteria None seen /hpf (None Seen) Urine Mucus Few (None Seen) Urine Glucose Normal mg/dL (Normal) Urine Opiates Screen Neg (NEGATIVE) Urine Fentanyl Screen Neg (NEGATIVE) Urine Barbiturates Screen Neg (NEGATIVE) Urine Phencyclidine Screen Neg (NEGATIVE) Urine Amphetamines Screen Neg (NEGATIVE) Urine Benzodiazepines Screen Neg (NEGATIVE) Urine Cocaine Screen Neg (NEGATIVE) Urine Cannabinoids Screen Neg (NEGATIVE) Hemoglobin A1c 5.0 % A1C (<5.7) Troponin I High Sensitivity 4 ng/L (</=54) Triglycerides Level 91 mg/dL (< 150) Cholesterol Level 128 mg/dL (< 200) LDL Cholesterol 81 mg/dL (< 100) HDL Cholesterol 28 mg/dL (40-59) Thyroid Stimulating Hormone (TSH) 2.95 uIU/mL (0.55-4.78) Other Laboratory Tests 07/29/24 05:32 Brief Hx & Hospital Course: History of Present Illness Leland Abarca is a 18-year-old male with no significant past medical history who comes in due to tachycardia. The patient states he has been to multiple hospitals multiple times due to his anxiety and tachycardia and they are not helping him. They tell him his labs are normal and to follow up with his primary care provider. The patient states he wakes up and his heart rate is 120-140's. When he gets up or eats his heart rate goes even higher. He states he is scared to eat and that he is going to soon. Course of hospitalization: Long discussion was made with the patient. Apparently, the patient was scared to eat over the past three weeks and states that his caloric intake was approximately 300 per day, inconsistently. Patient was noted to be in metabolic acidosis, hypercalcemia, as well as having ketones in his urine. Patient had psychiatry consultation, with recommendations reviewed. Patient also had cardiology consultation regarding tachycardia with echocardiogram performed which was essentially negative for any acute findings. Patient continued to complain of chest pain, for which he had CT angiogram of the chest which ruled out any pathology including pulmonary embolism. All these findings were discussed with the patient. He was consulted by Psychiatry and is agreeable to her recommendations. Patient will be discharged home and follow up with his PCP at next available appointment. Patient will be started on sertraline 25 mg p.o. daily x7 days and increase to 50 mg p.o. daily. Patient will be given a one month supply and is instructed to follow up with Psychiatry for further treatment. Patient was agreeable with discharge plan. All questions answered. Physical examination General: Alert and Oriented x3. No acute distress. Well-nourished. Eyes: EOMI. Anicteric. HENT: Moist mucous membranes. Lungs: Clear to auscultation bilaterally. No accessory muscle use. Cardiovascular: Regular rate and rhythm. No murmur. No JVD. Abdomen: Soft, non-tender and non-distended. No palpable masses. Extremities: No edema. Non-tender. Skin: No rashes or lesions. Warm. Neurologic: No focal neurological deficits. CN II-XII grossly intact, but not individually tested. Psychiatric: Cooperative. Appropriate mood and affect. Total time spent with patient discussing and formulating plan of care: 35 minutes. This medical document was created using an electronic medical record system with [employer] dictation system. Although this document has been carefully reviewed, there may still be some phonetic and typographical errors. These areas are purely typographical due to imperfections of the software programs, and do not reflect any compromise in the patient's medical care. Condition at Discharge: Fair Final Diagnosis/Problems List Metabolic acidosis secondary to acute starvation Secondary diagnosis: -metabolic acidosis -sinus tachycardia with unifocal PVCs -anxiety disorder -anxiety -hypokalemia -hypercalcemia Discharge Disposition: Home Discharge Instruct/Medications Diet: Regular Activity: No Restrictions, As Tolerated Follow Up/Referral: Follow up with PCP at next earliest appointment. Patient states that he has a referral for tomorrow. Recommend getting referral for Psychiatry for monitoring patient's antidepressants Medications: Sertraline 25 mg p.o. daily x7 days then 50 mg p.o. daily Hydroxyzine 25 mg daily as needed for anxiety 36 Discharge Statement: "Patient was advised to return to the ER or call 911 if any headaches, dizziness, shortness of breath, chest pain, abdominal pain, bleeding, fevers, or worsening of medical condition. Patient was counseled about treatment plan, medications, possible side effects, patientverbalized understanding. All questions were answered to the best of my ability. This discharge took greater then 30 minutes in planning, reviewing documentation, counseling the patient, and discussing with other team members." ASSESSMENT ASSESSMENT Assessment Metabolic acidosis secondary to acute starvation Date of Service: Jul 30, 2024 Billing Provider: MONROE LEON NP Common Visit Codes: 92630-[id number] INP/OBS CARE(HIGH), 11869-OGH/OBS DISCH DAY >30min MONROE LEON NP Jul 30, 2024 16:19
[2024-07-30] MEDS ORDERED: HYDR-3682 PO (16:20)
[2024-07-31 08:07] LABS: Free Thyroxine Index 4.1 (1.2-4.9); Thyroxine (T4) 11.2 ug/dL (4.5-12.0)
== END 2024-07-30 17:40 | disposition home or self-care (01) | DRG 815 ==
LOC: EDBD 09:24 → ER 09:24 → OVERFLOW 14:15 → TELE-EAST 07-29 18:28
PROVIDERS: ADMIT Nurse Practitioner Acute Care; ATTEND Nurse Practitioner Acute Care
DX: T73.0XXA Starvation, initial encounter (principal); E87.21 Acute metabolic acidosis; I42.9 Cardiomyopathy, unspecified; Z79.899 Other long term (current) drug therapy; R00.0 Tachycardia, unspecified; E87.6 Hypokalemia; F41.9 Anxiety disorder, unspecified; I49.3 Ventricular premature depolarization; X58.XXXA Exposure to other specified factors, initial encounter; E83.52 Hypercalcemia
CPT/HCPCS: 36415; 71045; 71275; 80048; 80053; 80061; 80307; 81001; 83036; 83735; 83970; 84132; 84443; 84484; 85025; 85652; 86141; 93005; 93306; 96361; 96374; 96375; 99291; G0378; J1885; J2405

== ENCOUNTER 2024-07-31 18:09 | Emergency (ER) | payer MEDICAID ==
[~2024-07-31] VITALS: Ht 175.3 cm; Wt 84.0 kg
[~2024-07-31 18:09] MED LIST: HYDR-3682 PO; SERT-289 PO; SERT25TA28 PO
--- NOTE | 2024-07-31 18:22 | ED.PDOC ---
History of Present Illness HPI Comments 18 y/o M, with PMHX of tachycardia and anxiety presents to the ED via EMS for CC of anxiety and palpitations. Patient states, that he has been experiencing anxiety with associated symptoms of heart palpitations and chest pain x1 hour. Patient relays, that he was admitted to [facility] for cardiomyopathy on 07/28/24; and was discharged home yesterday (07/30/24) with Hydroxyzine which has caused his palpitations to intensify. Patient currently takes Zoloft for which he is complaint with. Patient denies current chest pain, shortness of breath, dizziness, fatigue, or weakness. No other symptoms or modifying factors at this time. Patient was tachycardic at arrival. Chief Complaint: Anxiety Time Seen by MD: 18:25 Reviewed Notes: Nurses Notes, Supervisor Glycerin Notes Allergies: Coded Allergies: NO KNOWN ALLERGIES (Unverified , 07/28/24) Home Meds Active Scripts Hydroxyzine Hcl (Hydroxyzine Hcl) 25 Mg Tab, 25 MG PO DAILY PRN for 30 Days, #30 TAB Prov:MONROE LEON NP 07/30/24 Sertraline HCl (Sertraline HCl) 50 Mg Tab, 50 MG PO DAILY for 21 Days, #21 TAB Give after 1st week of 25 mg p.o. daily Prov:MONROE LEON NP 07/30/24 Sertraline Hcl (Sertraline Hcl) 25 Mg Tab, 1 TAB PO DAILY for 7 Days, #7 TAB 2 Refills Prov:MONROE LEON COAL TRIMMER MACHINE OPERATOR 07/30/24 Information Source: Patient, Emergency Med Personnel Mode of Arrival: EMS Severity: Mild Timing: Days Duration: Since onset Prehospital treatment: None Past Medical History PAST MEDICAL HISTORY: Anxiety Past Medical History (Other): Recent chest pain concerns Surgical History: Denies all surgeries Family History Family History: Reviewed,noncontributory to illness Social History Smoker: Non-Smoker Alcohol: Denies ETOH Use Drugs: Denies Drug Use Lives In: Home Constitutional: denies: chills, diaphoresis, fatigue, fever, malaise, sweats, weakness, others EENTM: denies: blurred vision, double vision, ear bleeding, ear discharge, ear drainage, ear pain, ear ringing, eye pain, eye redness, hearing loss, mouth pain, mouth swelling, nasal discharge, nose bleeding, nose congestion, nose pain, photophobia, tearing, throat pain, throat swelling, voice changes, others Respiratory: denies: cough, hemoptysis, orthopnea, SOB at rest, shortness of breath, SOB with excertion, stridor, wheezing, others Cardiovascular: reports: chest pain, palpitations; denies: dizzy spells, diaphoresis, Dyspnea on exertion, edema, irregular heart beat, left arm pain, lightheadedness, PND, syncope, others Gastrointestinal: denies: abdomen distended, abdominal pain, blood streaked bowels, constipated, diarrhea, dysphagia, difficulty swallowing, hematemesis, melena, nausea, poor appetite, poor fluid intake, rectal bleeding, rectal pain, vomiting, others Genitourinary: denies: burning, dysuria, flank pain, frequency, hematuria, incontinence, penile discharge, penile sore, pain, testicle pain, testicle swelling, urgency, others Neurological: denies: dizziness, fainting, headache, left sided numbness, left sided weakness, numbness, paresthesia, pre-existing deficit, right sided numbness, right sided weakness, seizure, speech problems, tingling, tremors, weakness, others Musculoskeletal: denies: back pain, gout, joint pain, joint swelling, muscle pain, muscle stiffness, neck pain, others Integumetry: denies: bruises, change in color, change in hair/nails, dryness, laceration, lesions, lumps, rash, wounds, others Allergic/Immunocompromised: denies: Difficulty Healing, Frequent Infections, Hives, Itching, others Hematologic/Lymphatic: denies: anemia, blood clots, easy bleeding, easy bruising, swollen glands, others Endocrine: denies: excessive hunger, excessive sweating, excessive thirst, excessive urination, flushing, intolerance to cold, intolerance to heat, unexplained weight gain, unexplained weight loss, others Psychiatric: reports: anxiety; denies: bipolar disorder, depression, hopeless, panic disorder, schizophrenia, sleepless, suicidal, others All Other Systems: Reviewed and Negative Physical Exam General Appearance: Moderate Distress (Moderate distress due to chest pain and palpitation concerns. Patient was tearful at time of evaluation.), Normal HEENT: Normal ENT Inspection, Pharynx Normal, TMs Normal Neck: Full Range of Motion, Non-Tender, Normal, Normal Inspection Respiratory: Chest Non-Tender, Lungs Clear, No Accessory Muscle Use, No Respiratory Distress, Normal Breath Sounds Cardiovascular: No Edema, No JVD, No Murmur, No Gallop, Normal Peripheral Puls es, Tachycardia Breast Exam: Deferred Gastrointestinal: No Organomegaly, Non Tender, No Pulsatile Mass, Normal Bowel Sounds, Soft Genitalia: Deferred Pelvic: Deferred Rectal: Deferred Extremities: No calf tenderness, Normal capillary refill, Normal inspection, Normal range of motion, Non-tender, No pedal edema Neurologic: Alert, No Motor Deficits, Normal Affect, Normal Mood, No Sensory Deficits Cerebellar Function: Normal Reflexes: Normal Skin: Dry, Normal Color, Warm Lymphatic: No Adenopathy Was a procedure done? Was a procedure done?: No Differential Dx Considerations may include: Chest pain, palpitations, acute coronary syndrome, anxiety X-Ray, Labs, Meds, VS Vital Signs Date Time Temp Pulse Resp B/P (MAP) Pulse Ox O2 Delivery O2 Flow Rate FiO2 07/31/24 18:44 111 18 120/75 (90) 97 07/31/24 18:42 Room Air* 0 21 07/31/24 18:13 98.1 110 20 146/93 (110) 100 07/31/24 18:10 118 Lab Test 07/31/24 19:45 07/31/24 18:40 Range/Units Troponin I High Sensitivity 4 4 </=54 ng/L White Blood Count 11.2 #H 4.4-10.8 10^3/uL Red Blood Count 4.78 4.5-5.90 10^6/uL Hemoglobin 13.9 13.5-17.5 g/dL Hematocrit 40.1 L 41.0-53.0 % Mean Corpuscular Volume 83.9 80.0-100.0 fL Mean Corpuscular Hemoglobin 29.2 28.0-32.0 pg Mean Corpuscular Hemoglobin Concent 34.8 32.0-36.0 g/dL Red Cell Distribution Width 13.7 11.8-14.3 % Platelet Count 307 140-450 10^3/uL Mean Platelet Volume 9.7 6.9-10.8 fL Neutrophils (%) (Auto) 72.9 37.0-80.0 % Lymphocytes (%) (Auto) 18.2 10.0-50.0 % Monocytes (%) (Auto) 7.8 0.0-12.0 % Eosinophils (%) (Auto) 0.6 0.0-7.0 % Basophils (%) (Auto) 0.5 0.0-2.0 % Neutrophils # (Auto) 8.1 1.6-8.6 10 ^3/uL Lymphocytes # (Auto) 2.0 0.4-5.4 10 ^3/uL Monocytes # (Auto) 0.9 0-1.3 10 ^3/uL Eosinophils # (Auto) 0.1 0-0.8 10 ^3/uL Basophils # (Auto) 0.1 0-0.2 10 ^3/uL Nucleated Red Blood Cells 0.0 % Sodium Level 139 136-145 mmol/L Potassium Level 3.5 3.5-5.1 mmol/L Chloride Level 108 H 98-107 mmol/L Carbon Dioxide Level 16 L 20-31 mmol/L Anion Gap 15 5-15 Blood Urea Nitrogen 9 9-23 mg/dL Creatinine 0.86 0.700-1.30 mg/dL Glomerular Filtration Rate Calc 127 >90 mL/min BUN/Creatinine Ratio 10.5 10.0-20.0 Serum Glucose 91 74-106 mg/dL Calcium Level 10.8 H 8.7-10.4 mg/dL X-Ray, Labs, Meds, VS Comment Spent extensive time discussing the patient's concerns with him at arrival. Advised that he has not had a chance to follow up with his psychiatrist or additional doctors and that he was cleared of any cardiac concerns. While waiting on lab results, patient informed nursing that he wanted to leave the facility. Patient signed an AMA form prior to leaving the campus. Time of 1ST Reevaluation: 21:38 Reevaluation 1ST: Improved Consultation: PCP, Cardiology, Psychiatry Patient Education/Counseling: Diagnosis, Treatment Family Education/Counseling: Diagnosis, Treatment, No Family Present Departure 1 Departure Time of Disposition: 21:38 Impression: Primary Impression: Anxiety Additional Impression: Palpitations Disposition: LEFT AGAINST MEDICAL ADVICE Condition: Fair Discharged With: Self Critical Care Note Critical Care Time?: No Stability Stability form required: No Heart Score Heart Score: Heart Score Response (Comments) Value History Slightly Suspicious 0 EKG Repolarization Disturb 1 Age <45 0 Risk Factors No known risk factors 0 Troponin Normal limit 0 Total 1 I personally scribed for NICOLLE GAMEZ PAC ([email or web address]) on 07/31/24 at 18:22. Electronically submitted by Vera Nair [email or web address]). I personally scribed for NICOLLE GAMEZ PAC ([email or web address]) on 07/31/24 at 18:32. Electronically submitted by Vera Nair [email or web address]). NICOLLE GAMEZ PAC Jul 31, 2024 18:22
--- NOTE | 2024-07-31 18:25 | ECG ---
[facility] Test Date: 2024-07-31 Test Time: 18:10:39 Pat Name: BO LEBLANC Department: ER Room: Gender: M Respiratory Therapy Assistant: LUZ MARIA : 2005 Requested By: MICHELLE DENTON Order Number: [id number] Reading MD: Tucker Nagy Measurements Intervals [place] Rate: 118 P: 65 SC: 123 QRS: 80 QRSD: 79 T: 23 QT: 319 QTc: 448 Interpretive Statements Sinus tachycardia Ventricular trigeminy Electronically Signed On 07-31-2024 22:30:01 PST by Tucker Nagy Please click the below link to view image of tracing.
[2024-07-31] MEDS: ALPRAZolam 0.5 MG TAB PO ONE (18:42)
[2024-07-31 18:44] VITALS: BP 120/75; PULSE 111; RESP 18; O2SAT 97
--- NOTE | 2024-07-31 19:03 | DVH ---
CHEST RADIOGRAPH Indication: Shortness of breath Technique: Single frontal view of the chest was obtained Comparison: XY CHEST PORTABLE on DOS: 07/28/24 FINDINGS: Lines and Tubes: None Lungs: No focal consolidation. Pleura: No effusion. No pneumothorax. Cardiomediastinal contours: Unremarkable Bones: No acute osseous abnormality. IMPRESSION: No acute cardiopulmonary disease.
[2024-07-31 19:13] LABS: Basophils # (auto) 0.1 10 ^3/uL (0-0.2); Basophils % (auto) 0.5 % (0.0-2.0); Eosinophils # (auto) 0.1 10 ^3/uL (0-0.8); Eosinophils % (auto) 0.6 % (0.0-7.0); Hematocrit 40.1 % (41.0-53.0); Hemoglobin 13.9 g/dL (13.5-17.5); Lymphocytes % (auto) 18.2 % (10.0-50.0); Mean Corpuscular Hemoglobin 29.2 pg (28.0-32.0); Mean Corpuscular Hgb Conc. 34.8 g/dL (32.0-36.0); Mean Corpuscular Volume 83.9 fL (80.0-100.0); Monocytes # (auto) 0.9 10 ^3/uL (0-1.3); Monocytes % (auto) 7.8 % (0.0-12.0); Neutrophils # (auto) 8.1 10 ^3/uL (1.6-8.6); Neutrophils % (auto) 72.9 % (37.0-80.0); Platelet Count (auto) 307 10^3/uL (140-450); Red Blood Cells 4.78 10^6/uL (4.5-5.90); Red Cell Distribution Width 13.7 % (11.8-14.3); White Blood Cell 11.2 10^3/uL (4.4-10.8)
[2024-07-31 19:21] LABS: Sodium 139 mmol/L (136-145)
[2024-07-31 19:22] LABS: Anion Gap 15 (5-15)
[2024-07-31 19:27] LABS: BUN/Creatinine Ratio 10.5 (10.0-20.0); Glucose 91 mg/dL (74-106)
[2024-07-31 19:30] LABS: Blood Urea Nitrogen 9 mg/dL (9-23); Calcium 10.8 mg/dL (8.7-10.4); Carbon Dioxide 16 mmol/L (20-31); Chloride 108 mmol/L (98-107); Potassium 3.5 mmol/L (3.5-5.1)
== END 2024-07-31 20:30 | disposition left against medical advice (07) ==
LOC: EDBD 18:09 → ER 18:09
DX: F41.9 Anxiety disorder, unspecified (principal); R00.2 Palpitations; R07.9 Chest pain, unspecified
CPT/HCPCS: 36415; 71045; 80048; 84484; 85025; 93005

== ENCOUNTER 2024-08-03 23:53 | Emergency (ER) | payer MEDICAID ==
[~2024-08-03] VITALS: Ht 175.3 cm; Wt 76.4 kg
--- NOTE | 2024-08-04 00:28 | ED.PDOC ---
History of Present Illness HPI Comments 18 y/ol M presents with c/o epigastric abdominal and left-chest wall pain, today. Patient endorses on sudden and unprovoked onset of symptoms 30x minutes prior to ED arrival, this evening. He comments on abdominal pain and chest wall pain being sharp and dull in quality, respectively. Patient reports of history of symptoms in the past, with accompanying ED visits at multiple facility and being informed on each one yielding no significant findings and told anxiety as being the underlying cause. He denies any shortness of breath, nausea, vomiting, fever, chills, or other associated symptoms or modifiers at this time. Chief Complaint: Palpitations Time Seen by MD: 23:55 Reviewed Notes: Nurses Notes, Medications, Allergies Allergies: Coded Allergies: NO KNOWN ALLERGIES (Unverified , 07/28/24) Home Meds Active Scripts Hydroxyzine Hcl (Hydroxyzine Hcl) 25 Mg Tab, 25 MG PO DAILY PRN for 30 Days, #30 TAB Prov:MONROE LEON NP 07/30/24 Sertraline HCl (Sertraline HCl) 50 Mg Tab, 50 MG PO DAILY for 21 Days, #21 TAB Give after 1st week of 25 mg p.o. daily Prov:MONROE LEON NP 07/30/24 Sertraline Hcl (Sertraline Hcl) 25 Mg Tab, 1 TAB PO DAILY for 7 Days, #7 TAB 2 Refills Prov:MONROE LEON RECEIVER DISPATCHER 07/30/24 Information Source: Patient Mode of Arrival: Ambulatory Severity: Moderate Timing: Minutes Duration: Since onset Prehospital treatment: None Past Medical History PAST MEDICAL HISTORY: Anxiety Surgical History: Denies all surgeries Family History Family History: Reviewed,noncontributory to illness Social History Smoker: Non-Smoker Alcohol: Denies ETOH Use Drugs: Denies Drug Use Lives In: Home All Other Systems: Reviewed and Negative (negative unless otherwise stated above or in HPI) Physical Exam General Appearance: No Apparent Distress, Normal, Other (anxious appearing ) HEENT: Normal ENT Inspection, Pharynx Normal, TMs Normal Neck: Full Range of Motion, Non-Tender, Normal, Normal Inspection Respiratory: Chest Non-Tender, Lungs Clear, No Accessory Muscle Use, No Respiratory Distress, Normal Breath Sounds Cardiovascular: No Edema, No JVD, No Murmur, No Gallop, Normal Peripheral P ulses, Regular Rate/Rhythm Breast Exam: Deferred Gastrointestinal: No Organomegaly, Non Tender, No Pulsatile Mass, Normal Bowel Sounds, Soft Genitalia: Deferred Pelvic: Deferred Rectal: Deferred Extremities: No calf tenderness, Normal capillary refill, Normal inspection, Normal range of motion, Non-tender, No pedal edema Musculoskeletal : Apperance: Normal Neurologic: Alert, printing equipment mechanic apprentice II-XII nml as Tested, No Motor Deficits, Normal Affect, Normal Mood, No Sensory Deficits Cerebellar Function: Normal Reflexes: Normal Skin: Dry, Normal Color, Warm Lymphatic: No Adenopathy Was a procedure done? Was a procedure done?: No EKG EKG : Pulse Rate (adult): [address] [place]: Normal Cardiac Rhythm: ST Block: None Hypertrophy: None ST: Normal Differential Dx Considerations may include: anxiety, IN, ACS, PE, angina, musculoskeletal pain, viral syndrome, URI X-Ray, Labs, Meds, VS Vital Signs Date Time Temp Pulse Resp B/P (MAP) Pulse Ox O2 Delivery O2 Flow Rate FiO2 08/04/24 02:48 97 13 99 Room Air* 0 21 08/04/24 02:47 97.9 97 13 117/62 (80) 99 97.9 08/04/24 00:28 101 08/04/24 00:13 98.1 97 18 129/85 (100) 99 08/04/24 00:00 101 Lab Test 08/04/24 00:35 Range/Units White Blood Count 8.8 4.4-10.8 10^3/uL Red Blood Count 4.82 4.5-5.90 10^6/uL Hemoglobin 14.1 13.5-17.5 g/dL Hematocrit 40.4 L 41.0-53.0 % Mean Corpuscular Volume 83.8 80.0-100.0 fL Mean Corpuscular Hemoglobin 29.3 28.0-32.0 pg Mean Corpuscular Hemoglobin Concent 35.0 32.0-36.0 g/dL Red Cell Distribution Width 13.7 11.8-14.3 % Platelet Count 393 140-450 10^3/uL Mean Platelet Volume 9.2 6.9-10.8 fL Neutrophils (%) (Auto) 45.9 37.0-80.0 % Lymphocytes (%) (Auto) 39.6 10.0-50.0 % Monocytes (%) (Auto) 10.2 0.0-12.0 % Eosinophils (%) (Auto) 3.6 0.0-7.0 % Basophils (%) (Auto) 0.7 0.0-2.0 % Neutrophils # (Auto) 4.0 1.6-8.6 10 ^3/uL Lymphocytes # (Auto) 3.5 0.4-5.4 10 ^3/uL Monocytes # (Auto) 0.9 0-1.3 10 ^3/uL Eosinophils # (Auto) 0.3 0-0.8 10 ^3/uL Basophils # (Auto) 0.1 0-0.2 10 ^3/uL Nucleated Red Blood Cells 0.0 % Prothrombin Time 11.4 9.3-11.8 sec Prothrombin Time INR 1.08 0.9-1.15 D-Dimer, Quantitative 0.37 0.0-0.49 mg/L FEU Sodium Level 139 136-145 mmol/L Potassium Level 3.6 3.5-5.1 mmol/L Chloride Level 105 98-107 mmol/L Carbon Dioxide Level 20 20-31 mmol/L Anion Gap 14 5-15 Blood Urea Nitrogen 10 9-23 mg/dL Creatinine 0.91 0.700-1.30 mg/dL Glomerular Filtration Rate Calc 124 >90 mL/min BUN/Creatinine Ratio 11.0 10.0-20.0 Serum Glucose 101 74-106 mg/dL Calcium Level 10.8 H 8.7-10.4 mg/dL Total Bilirubin 0.5 0.2-1.0 mg/dL Aspartate Amino Transferase (AST) 18 13-40 U/L Alanine Aminotransferase (ALT) 27 7-40 U/L Alkaline Phosphatase 90 46-116 U/L Troponin I High Sensitivity 5 </=54 ng/L Total Protein 8.5 H 5.7-8.2 g/dL Albumin 5.3 H 3.2-4.8 g/dL Thyroid Stimulating Hormone (TSH) 5.31 H 0.55-4.78 uIU/mL Free Thyroxine (T4) Calculated 1.83 H 0.89-1.76 ng/dL Time of 1ST Reevaluation: 00:25 Reevaluation 1ST: Unchanged Time of 2ND Reevaluation: 01:30 Reevaluation 2ND: Improved Patient Education/Counseling: Diagnosis, Treatment Family Education/Counseling: No Family Present Departure 1 Departure Time of Disposition: 01:30 Impression: Primary Impression: Palpitations Disposition: HOME / SELF CARE / HOMELESS Condition: Stable Discharged With: Self Critical Care Note Critical Care Time?: No Stability Stability form required: No Heart Score Heart Score: Heart Score Response (Comments) Value History N/A 0 EKG N/A 0 Age N/A 0 Risk Factors N/A 0 Troponin N/A 0 Total 0 I personally scribed for CHRIS VÁZQUEZ MD ([email or web address]) on 08/04/24 at 00:28. Electronically submitted by Dane Thompson [email or web address]). CHRIS VÁZQUEZ MD Aug 04, 2024 00:28
[2024-08-04 00:45] LABS: Basophils # (auto) 0.1 10 ^3/uL (0-0.2); Basophils % (auto) 0.7 % (0.0-2.0); Eosinophils # (auto) 0.3 10 ^3/uL (0-0.8); Eosinophils % (auto) 3.6 % (0.0-7.0); Hematocrit 40.4 % (41.0-53.0); Hemoglobin 14.1 g/dL (13.5-17.5); Lymphocytes # (auto) 3.5 10 ^3/uL (0.4-5.4); Lymphocytes % (auto) 39.6 % (10.0-50.0); Mean Corpuscular Hemoglobin 29.3 pg (28.0-32.0); Mean Corpuscular Volume 83.8 fL (80.0-100.0); Monocytes # (auto) 0.9 10 ^3/uL (0-1.3); Monocytes % (auto) 10.2 % (0.0-12.0); Neutrophils % (auto) 45.9 % (37.0-80.0); Platelet Count (auto) 393 10^3/uL (140-450); Red Blood Cells 4.82 10^6/uL (4.5-5.90); Red Cell Distribution Width 13.7 % (11.8-14.3); White Blood Cell 8.8 10^3/uL (4.4-10.8)
[2024-08-04 00:59] LABS: INR 1.08 (0.9-1.15); Prothrombin Time 11.4 sec (9.3-11.8)
[2024-08-04 01:03] LABS: Alanine Aminotransferase 27 U/L (7-40); Alkaline Phosphatase 90 U/L (46-116); Anion Gap 14 (5-15); Aspartate Aminotransferase 18 U/L (13-40); Bilirubin, Total 0.5 mg/dL (0.2-1.0); Blood Urea Nitrogen 10 mg/dL (9-23); Chloride 105 mmol/L (98-107); Glucose 101 mg/dL (74-106); Potassium 3.6 mmol/L (3.5-5.1); Sodium 139 mmol/L (136-145)
[2024-08-04 01:07] LABS: Albumin 5.3 g/dL (3.2-4.8); Calcium 10.8 mg/dL (8.7-10.4); Carbon Dioxide 20 mmol/L (20-31); Total Protein 8.5 g/dL (5.7-8.2)
[2024-08-04 02:47] VITALS: BP 117/62; TEMP 97.9
[2024-08-04 02:48] VITALS: PULSE 97; RESP 13; O2SAT 99
--- NOTE | 2024-08-04 10:50 | ECG ---
[facility] Test Date: 2024-08-04 Test Time: 00:00:05 Pat Name: BO LEBLANC Department: ED Room: Gender: M Professor Of Music: PILAR : 2005 Requested By: CHRIS VÁZQUEZ Order Number: [id number] Reading MD: Measurements Intervals [place] Rate: 101 P: 74 LA: 128 QRS: 80 QRSD: 82 T: -4 QT: 331 QTc: 429 Interpretive Statements Sinus tachycardia Borderline ST depression, inferior leads Please click the below link to view image of tracing.
== END 2024-08-04 03:45 | disposition home or self-care (01) ==
LOC: ER 23:53
DX: R00.2 Palpitations (principal); F41.9 Anxiety disorder, unspecified; Z79.899 Other long term (current) drug therapy
CPT/HCPCS: 36415; 80053; 84439; 84443; 84484; 85025; 85379; 85610; 93005

== ENCOUNTER → 2024-08-11 | Outpatient (CLI) | payer MEDICAID ==
--- NOTE | 2024-08-11 11:14 | DVH ---
EXAM: XY CHEST TWO VIEWS ROUTINE CLINICAL HISTORY: SOB COMPARISON: None TECHNIQUE: Frontal and lateral view of the chest was obtained FINDINGS: Lines and Tubes: None Lungs: No focal consolidation. Pleura: No effusion. No pneumothorax. Cardiomediastinal contours: Unremarkable Pulmonary vasculature: Within normal limits. Bones: No acute osseous abnormality. IMPRESSION: 1. No acute cardiopulmonary disease. HS:Y
== END | disposition home or self-care (01) ==
LOC: Rad HDHVI 10:12
PROVIDERS: ATTEND Internal Medicine Cardiovascular Disease
DX: R06.02 Shortness of breath (principal)
CPT/HCPCS: 71046

== ENCOUNTER → 2024-08-14 | Outpatient (CLI) | payer MEDICAID ==
[~2024-08-14] VITALS: Ht 162.6 cm; Wt 77.1 kg
[~2024-08-14] MED LIST changes: +DILT1TAB2 PO; +ONDANSETRON HCL 4 MG/2 ML VIAL ONE; +PROP1TAB53 PO
== END | disposition home or self-care (01) ==
LOC: Rad HDHVI 10:05
PROVIDERS: ATTEND Internal Medicine Cardiovascular Disease
DX: R00.0 Tachycardia, unspecified (principal); R07.89 Other chest pain; R06.02 Shortness of breath; R42 Dizziness and giddiness; Z82.49 Family history of ischemic heart disease and other diseases of the circulatory system
CPT/HCPCS: 93017; J2405

== ENCOUNTER 2024-08-19 23:18 | Inpatient (IN) | payer MEDICAID ==
[~2024-08-19] VITALS: Ht 175.3 cm; Wt 77.7 kg
[~2024-08-19 23:18] MED LIST changes: -DILT1TAB2 PO; -ONDANSETRON HCL 4 MG/2 ML VIAL ONE; -PROP1TAB53 PO
[2024-08-19 23:51] LABS: Basophils # (auto) 0 10 ^3/uL (0-0.2); Basophils % (auto) 0.2 % (0.0-2.0); Eosinophils # (auto) 0.1 10 ^3/uL (0-0.8); Eosinophils % (auto) 1.3 % (0.0-7.0); Hematocrit 40.5 % (41.0-53.0); Hemoglobin 13.7 g/dL (13.5-17.5); Lymphocytes % (auto) 21.9 % (10.0-50.0); Mean Corpuscular Hemoglobin 29.3 pg (28.0-32.0); Mean Corpuscular Hgb Conc. 33.8 g/dL (32.0-36.0); Mean Corpuscular Volume 86.7 fL (80.0-100.0); Monocytes # (auto) 0.6 10 ^3/uL (0-1.3); Monocytes % (auto) 6.9 % (0.0-12.0); Neutrophils # (auto) 6.3 10 ^3/uL (1.6-8.6); Neutrophils % (auto) 69.7 % (37.0-80.0); Nucleated Red Blood Cells % 0.1 %; Platelet Count (auto) 241 10^3/uL (140-450); Red Blood Cells 4.67 10^6/uL (4.5-5.90)
--- NOTE | 2024-08-19 23:52 | DVH ---
CHEST RADIOGRAPH Indication: CP Technique: Single frontal view of the chest was obtained Comparison: XY CHEST PORTABLE on DOS: 07/31/24, XY CHEST PORTABLE on DOS: 07/28/24 FINDINGS: Lines and Tubes: Device projected over the mediastinum. Lungs: Clear Pleura: No effusion. No pneumothorax. Cardiomediastinal contours: Unremarkable Bones: Unremarkable IMPRESSION: Clear lungs.
[2024-08-20] VITALS (7 sets, daily range): BP systolic 110–112; BP diastolic 53–61; PULSE 84–116; RESP 14–18; TEMP 96.6–98.6; O2SAT 98–100
[2024-08-20 00:06] LABS: Alkaline Phosphatase 93 U/L (46-116); Anion Gap 14 (5-15); BUN/Creatinine Ratio 7.2 (10.0-20.0); Bilirubin, Total 0.6 mg/dL (0.2-1.0); Calcium 10.1 mg/dL (8.7-10.4); Chloride 106 mmol/L (98-107); Glucose 90 mg/dL (74-106); Potassium 3.7 mmol/L (3.5-5.1); Sodium 139 mmol/L (136-145); Total Protein 7.6 g/dL (5.7-8.2)
[2024-08-20 00:10] LABS: Alanine Aminotransferase 171 U/L (7-40); Albumin 4.8 g/dL (3.2-4.8); Aspartate Aminotransferase 57 U/L (13-40); Blood Urea Nitrogen 6 mg/dL (9-23); Carbon Dioxide 19 mmol/L (20-31)
--- NOTE | 2024-08-20 00:35 | ED.PDOC ---
HPI Comments 18 y/o M, with a history of anxiety, presents with c/o epigastric abdominal pain, that radiates to his sternal chest area, intermittently, shortness of breath, generalized tremors, nausea, and vomiting, today. Patient states that any time he goes from sitting to standing order makes it patient was smell changes heart starts racing in the 120s. Patient is a poor historian and endorses on having symptoms that have been ongoing, intermittently, for 1x month, with accompanying multiple ED visits and hospital admissions. He states on most recent sudden and unprovoked onset of symptoms earlier, this evening, and was, initially, seen at [facility] after calling EMS before then leaving [place]. He was given 1 L NS bolus at [facility] to help with the tachycardia but states he was no improvement. Patient reports on established contact with outpatient cardiology and Halter monitor placement following previous [facility] visit encounter on 07/28/24, with provider overseeing his care then being a "Dr. Thorne." Patient denies any palpitations, fever, chills, cough, congestion, or other associated symptoms or modifiers at this time. Patient was advised by benchroom shop optician to not take any medications for anxiety. Patient states he was previously on propranolol and then advised to stop taking. Chief Complaint: Chest Pain Time Seen by MD: 23:20 Reviewed Notes: Nurses Notes, Medications, Allergies Allergies: Coded Allergies: NO KNOWN ALLERGIES (Unverified , 07/28/24) Home Meds Active Scripts Hydroxyzine Hcl (Hydroxyzine Hcl) 25 Mg Tab, 25 MG PO DAILY PRN for 30 Days, #30 TAB Prov:MONROE LEON WALL WASHER 07/30/24 Sertraline HCl (Sertraline HCl) 50 Mg Tab, 50 MG PO DAILY for 21 Days, #21 TAB Give after 1st week of 25 mg p.o. daily Prov:MONROE LEON WALL WASHER 07/30/24 Sertraline Hcl (Sertraline Hcl) 25 Mg Tab, 1 TAB PO DAILY for 7 Days, #7 TAB 2 Refills Prov:MONROE LEON WALL WASHER 07/30/24 Information Source: Patient Mode of Arrival: Ambulatory Severity: Moderate Timing: Months Duration: Intermittent Past Medical History PAST MEDICAL HISTORY: Anxiety Surgical History: Denies all surgeries Family History Family History: Reviewed,noncontributory to illness Social History Smoker: Non-Smoker Alcohol: Denies ETOH Use Drugs: Denies Drug Use Lives In: Home Constitutional: denies: chills, diaphoresis, fatigue, fever, malaise, sweats, weakness, others EENTM: denies: blurred vision, double vision, ear bleeding, ear discharge, ear drainage, ear pain, ear ringing, eye pain, eye redness, hearing loss, mouth pain, mouth swelling, nasal discharge, nose bleeding, nose congestion, nose pain, photophobia, tearing, throat pain, throat swelling, voice changes, others Respiratory: denies: cough, hemoptysis, orthopnea, SOB at rest, shortness of b reath, SOB with excertion, stridor, wheezing, others Cardiovascular: denies: chest pain, dizzy spells, diaphoresis, Dyspnea on exertion, edema, irregular heart beat, left arm pain, lightheadedness, palpitations, PND, syncope, others Gastrointestinal: denies: abdomen distended, abdominal pain, blood streaked bowels, constipated, diarrhea, dysphagia, difficulty swallowing, hematemesis, melena, nausea, poor appetite, poor fluid intake, rectal bleeding, rectal pain, vomiting, others Genitourinary: denies: burning, dysuria, flank pain, frequency, hematuria, incontinence, penile discharge, penile sore, pain, testicle pain, testicle swelling, urgency, others Neurological: denies: dizziness, fainting, headache, left sided numbness, left sided weakness, numbness, paresthesia, pre-existing deficit, right sided numbness, right sided weakness, seizure, speech problems, tingling, tremors, weakness, others Musculoskeletal: denies: back pain, gout, joint pain, joint swelling, muscle pain, muscle stiffness, neck pain, others Integumetry: denies: bruises, change in color, change in hair/nails, dryness, laceration, lesions, lumps, rash, wounds, others Allergic/Immunocompromised: denies: Difficulty Healing, Frequent Infections, Hives, Itching, others Hematologic/Lymphatic: denies: anemia, blood clots, easy bleeding, easy bruising, swollen glands, others All Other Systems: Reviewed and Negative (negative unless otherwise stated above or in HPI) Physical Exam General Appearance: No Apparent Distress, Normal HEENT: Normal ENT Inspection, Pharynx Normal, TMs Normal Neck: Full Range of Motion, Non-Tender, Normal, Normal Inspection Respiratory: Chest Non-Tender, Lungs Clear, No Accessory Muscle Use, No Respiratory Distress, Normal Breath Sounds Cardiovascular: No Edema, No JVD, No Murmur, No Gallop, Normal Peripheral Pulses, Tachycardia Breast Exam: Deferred Gastrointestinal: No Organomegaly, Non Tender, No Pulsatile Mass, Normal Bowel Sounds, Soft Genitalia: Deferred Pelvic: Deferred Rectal: Deferred Extremities: No calf tenderness, Normal capillary refill, Normal inspection, Normal range of motion, Non-tender, No pedal edema Musculoskeletal : Apperance: Normal Neurologic: Alert, health therapist II-XII nml as Tested, No Motor Deficits, Normal Affect, Normal Mood, No Sensory Deficits Cerebellar Function: Normal Reflexes: Normal Skin: Dry, Normal Color, Warm Lymphatic: No Adenopathy EKG EKG : Pulse Rate (adult): 100 [place]: Normal Cardiac Rhythm: ST Block: None Hypertrophy: None ST: Normal Was a procedure done? Was a procedure done?: No CP Differential Dx Differential Diagnosis: Sinus Tachycardia, [place] Point[place], N/A Differential Diagnosis: N/A Differential Diagnosis: Angina, Chest Wall Pain, Cholelithiasis, Costochondritis, Esophageal reflux/spasm, Gastritis, Myocardial Infarction, Pericarditis, Pneumonia, Pulmonary Embolus, Other (anxiety ) X-Ray, Labs, Meds, VS Vital Signs Date Time Temp Pulse Resp B/P (MAP) Pulse Ox O2 Delivery O2 Flow Rate FiO2 08/20/24 00:35 100 08/19/24 23:24 99.0 112 20 143/79 (100) 99 08/19/24 23:22 100 Lab Test 08/20/24 00:17 08/19/24 23:32 Range/Units Troponin I High Sensitivity Pending 10 </=54 ng/L White Blood Count 9.0 4.4-10.8 10^3/uL Red Blood Count 4.67 4.5-5.90 10^6/uL Hemoglobin 13.7 13.5-17.5 g/dL Hematocrit 40.5 L 41.0-53.0 % Mean Corpuscular Volume 86.7 80.0-100.0 fL Mean Corpuscular Hemoglobin 29.3 28.0-32.0 pg Mean Corpuscular Hemoglobin Concent 33.8 32.0-36.0 g/dL Red Cell Distribution Width 15.0 H 11.8-14.3 % Platelet Count 241 140-450 10^3/uL Mean Platelet Volume 10.7 6.9-10.8 fL Neutrophils (%) (Auto) 69.7 37.0-80.0 % Lymphocytes (%) (Auto) 21.9 10.0-50.0 % Monocytes (%) (Auto) 6.9 0.0-12.0 % Eosinophils (%) (Auto) 1.3 0.0-7.0 % Basophils (%) (Auto) 0.2 0.0-2.0 % Neutrophils # (Auto) 6.3 1.6-8.6 10 ^3/uL Lymphocytes # (Auto) 2.0 0.4-5.4 10 ^3/uL Monocytes # (Auto) 0.6 0-1.3 10 ^3/uL Eosinophils # (Auto) 0.1 0-0.8 10 ^3/uL Basophils # (Auto) 0 0-0.2 10 ^3/uL Nucleated Red Blood Cells 0.1 % Sodium Level 139 136-145 mmol/L Potassium Level 3.7 3.5-5.1 mmol/L Chloride Level 106 98-107 mmol/L Carbon Dioxide Level 19 L 20-31 mmol/L Anion Gap 14 5-15 Blood Urea Nitrogen 6 L 9-23 mg/dL Creatinine 0.83 0.700-1.30 mg/dL Glomerular Filtration Rate Calc 129 >90 mL/min BUN/Creatinine Ratio 7.2 L 10.0-20.0 Serum Glucose 90 74-106 mg/dL Calcium Level 10.1 8.7-10.4 mg/dL Total Bilirubin 0.6 0.2-1.0 mg/dL Aspartate Amino Transferase (AST) 57 H 13-40 U/L Alanine Aminotransferase (ALT) 171 H 7-40 U/L Alkaline Phosphatase 93 46-116 U/L Total Protein 7.6 5.7-8.2 g/dL Albumin 4.8 3.2-4.8 g/dL [facility] [id number] [place] [id number] Ph: [phone] DIAGNOSTIC IMAGING Diagnostic Imaging Report : [id number] Signed PATIENT: BO LEBLANC ACCT: [id number] UNIT: [id number] : 2005 LOC: ER ROOM / BED: / AGE / SEX: 18 / M ADM STATUS: REG ER SERVICE ORDERING PHYSICIAN: GRACIELA DURBIN PROCEDURE(s): CXR1 - CHEST XRAY 1 VIEW REASON: CP ORDER NUMBER(s): [id number], ACCESSION NUMBER(s): [id number] CHEST RADIOGRAPH Indication: CP Technique: Single frontal view of the chest was obtained Comparison: XY CHEST PORTABLE on DOS: 07/31/24, XY CHEST PORTABLE on DOS: 07/28/24 FINDINGS: Lines and Tubes: Device projected over the mediastinum. Lungs: Clear Pleura: No effusion. No pneumothorax. Cardiomediastinal contours: Unremarkable Bones: Unremarkable IMPRESSION: Clear lungs. ATED BY: ARDEN COLBY DO DICTATED DATE/TIME: 08/19/242349 SIGNED BY: ARDEN COLBY DO SIGNED DATE/TIME: 08/19/242349 CC: X-Ray, Labs, Meds, VS Comment Patient will be admitted for chest pain, tachycardic, shortness a breath. Recommend cardiology consult in the morning Time of 1ST Reevaluation: 23:50 Reevaluation 1ST: Unchanged Patient Education/Counseling: Diagnosis, Treatment Family Education/Counseling: No Family Present Additional Information Previous visit documents reviewed: August 03, 2024 encounter for chest pain The following tests were ordered, and results were reviewed by me: Troponin, CXR, EKG, UA, CBC, CMP Additional Information was gathered from interviewing the following independent historians: N/A I reviewed and agreed with the following test results read by other providers: CXR I discussed treatment and results with medical personnel and: patient Departure 1 Departure Time of Disposition: 00:43 Impression: Primary Impression: Tachycardia Additional Impression: Chest pain Qualified Codes: R07.89 - Other chest pain Disposition: ADMITTED INPATIENT Condition: Stable Discharged With: Self Critical Care Note Critical Care Time?: No Stability Stability form required: No Heart Score Heart Score: Heart Score Response (Comments) Value History N/A 0 EKG N/A 0 Age N/A 0 Risk Factors N/A 0 Troponin N/A 0 Total 0 I personally scribed for GRACIELA DURBIN ([email or web address]) on 08/20/24 at 00:35. Electronically submitted by Dane Thompson ([email or web address]). GRACIELA DURBIN Aug 20, 2024 00:35
[2024-08-20] MEDS ORDERED: MORPHINE SULFATE INJ 2 MG/ml SYRG IV PRN (01:45)
[2024-08-20] MEDS ORDERED: ONDANSETRON HCL 4 MG/2 ML VIAL IV PRN (01:45)
[2024-08-20] MEDS ORDERED: ACETAMINOPHEN 325 MG TAB PO PRN (01:45)
[2024-08-20] MEDS ORDERED: NITROGLYCERIN 0.4 MG SL TAB SL PRN (01:45)
[2024-08-20 02:05] LABS: INR 1.08 (0.9-1.15); Prothrombin Time 11.4 sec (9.3-11.8)
--- NOTE | 2024-08-20 02:08 | DVHHPRES ---
History of Present Illness Resident Creating Document: GUDELIA MCKEON RESDIENT History of Present Illness This is a 18-year-old male with past medical history of anxiety came to the hospital due to epigastric abdominal pain and tachycardia. Patient was [facility] 07[facility] due to same symptoms, evaluated by fish receiver (Dr. Thorne), and was put on Holter monitoring 2 days back. Patient is still complains of tachycardia which has increased since 1 weeks. He has burning-type epigastric pain radiating to the throat also reproducible by touching. He also reports shortness of breath, tremor, nausea and vomiting. Denies palpitation, fever, cough, or any recent sick contact. Per patient he has intentional loss of 15 lb weight within last month. 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 Lives with the family at home Home medication: Patient was previously prescribed propranolol and sertraline, but has been stopped by fish receiver. Allergic history: No known allergy Review of Systems Review of Systems General: patient denies fever, fatigue, weaknes, sweating, any recent changes in appetite and weight HEENT: No headaches, visiual changes, hearing loss, tinnitus, nasal congestion and discharge, and sore throat. Cardiovascular: Denies chest pain, palpitations, dyspnea on exertion, orthopnea, or claudication. Respiratory: Reports shortness of breaths Gastrointestinal: Reports epigastric abdominal pain, nausea and vomiting Genitourinary: No dysuria, hematuria, discharge, frequency, urgency, nocturia, incontinence, and urinary retention. Endocrine: No heat or cold intolerance, polydipsia, polyuria, and polyphagia. Neurological: Reports tremor Psychiatric: Denies depression, anxiety,or insomnia. Musculoskeletal: Denies neck pain, stiffness and swelling, back pain, muscle weakness, joint pain, stiffness, swelling, or limited range of motion. Skin: No rashes, itching, skin lesion, changes in hair, nail, skin texture and breast. Hematologic/Lymphatic: Denies easy bruising, bleeding tendencies, or lymph node enlargement. Allergies: Coded Allergies: NO KNOWN ALLERGIES (Unverified , 07/28/24) Medications Current Medications Medications Dose Ordered Sig/Temo Route Start Time Stop Time Status Last Admin Dose Admin Nitroglycerin 0.4 mg Q5MINP PRN SL 08/20/24 01:45 Morphine Sulfate 2 mg Q30M PRN IV 08/20/24 01:45 Pantoprazole Sodium 40 mg DAILY IV 08/20/24 10:00 Ondansetron HCl 4 mg Q4HPRN PRN IV 08/20/24 01:45 Acetaminophen/ Hydrocodone Bitart 1 tab Q4HPRN PRN PO 08/20/24 01:45 Exam Vital Signs Vital Signs Date Time Temp Pulse Resp B/P (MAP) Pulse Ox O2 Delivery O2 Flow Rate FiO2 08/20/24 01:01 144 08/19/24 23:24 99.0 20 143/79 (100) 99 Exam General Appearance: Alert, Oriented X3, Cooperative, No acute distress HEENT: Atraumatic, PERRLA, EOMI, Mucous membrane moist/pink Respiratory: Clear to auscultation, Normal air movement Cardiovascular: Regular rate, Normal S1, Normal S2, No murmurs, no chest wall tenderness Abdominal: Epigastric abdominal tenderness Extremities: No clubbing, No cyanosis, No edema, Normal pulses, No tenderness/swelling Skin: No rashes, No breakdown, No significant lesion Neuro: Normal gait, Normal speech, Strength at 5/5 X4 ext, Normal tone, Sensation intact, Cranial nerves 3-12 NL, Reflexes 2+ Psych/Mental Status: Mental status NL, Mood NL Labs/Xrays Labs Test 08/20/24 00:17 08/19/24 23:32 Range/Units Troponin I High Sensitivity 9 </=54 ng/L White Blood Count 9.0 4.4-10.8 10^3/uL Red Blood Count 4.67 4.5-5.90 10^6/uL Hemoglobin 13.7 13.5-17.5 g/dL Hematocrit 40.5 L 41.0-53.0 % Mean Corpuscular Volume 86.7 80.0-100.0 fL Mean Corpuscular Hemoglobin 29.3 28.0-32.0 pg Mean Corpuscular Hemoglobin Concent 33.8 32.0-36.0 g/dL Red Cell Distribution Width 15.0 H 11.8-14.3 % Platelet Count 241 140-450 10^3/uL Mean Platelet Volume 10.7 6.9-10.8 fL Neutrophils (%) (Auto) 69.7 37.0-80.0 % Lymphocytes (%) (Auto) 21.9 10.0-50.0 % Monocytes (%) (Auto) 6.9 0.0-12.0 % Eosinophils (%) (Auto) 1.3 0.0-7.0 % Basophils (%) (Auto) 0.2 0.0-2.0 % Neutrophils # (Auto) 6.3 1.6-8.6 10 ^3/uL Lymphocytes # (Auto) 2.0 0.4-5.4 10 ^3/uL Monocytes # (Auto) 0.6 0-1.3 10 ^3/uL Eosinophils # (Auto) 0.1 0-0.8 10 ^3/uL Basophils # (Auto) 0 0-0.2 10 ^3/uL Nucleated Red Blood Cells 0.1 % Sodium Level 139 136-145 mmol/L Potassium Level 3.7 3.5-5.1 mmol/L Chloride Level 106 98-107 mmol/L Carbon Dioxide Level 19 L 20-31 mmol/L Anion Gap 14 5-15 Blood Urea Nitrogen 6 L 9-23 mg/dL Creatinine 0.83 0.700-1.30 mg/dL Glomerular Filtration Rate Calc 129 >90 mL/min BUN/Creatinine Ratio 7.2 L 10.0-20.0 Serum Glucose 90 74-106 mg/dL Calcium Level 10.1 8.7-10.4 mg/dL Total Bilirubin 0.6 0.2-1.0 mg/dL Aspartate Amino Transferase (AST) 57 H 13-40 U/L Alanine Aminotransferase (ALT) 171 H 7-40 U/L Alkaline Phosphatase 93 46-116 U/L Total Protein 7.6 5.7-8.2 g/dL Albumin 4.8 3.2-4.8 g/dL Assessment/Plan Assessment/Plan Intractable vomiting Possible GERD Possible postural orthostatic tachycardia syndrome/inappropriate sinus tachycardia History of anxiety EKG on lie down position shows normal sinus rhythm at 60s with sinus tachycardia at 160 upon standing up Echo from July 29, 2024 shows normal study Consult cardiology Consult GI Protonix Zofran [place] Transaminitis DIET: Regular DISPOSITION: Telemetry Patient's status and paln discussed with the patient and the patient's mother at the bedside. Case discussed with Dr. Kinney. Plan discussed with: Patient, Other (RN) My Orders Orders - GUDELIA MCKEON RESDIARELI Procedure Category Date Status Time Admit ADMIT 08/20/24 Transmitted 01:37 Nitroglycerin PHA 08/20/24 In Process Sublingual (Ntrostat 01:45 Morphine Sulfate PHA 08/20/24 In Process Injection 01:45 Oxygen By Nasal RT 08/20/24 Transmitted Cannula 01:37 Stat Ekg For Chest SHARON 08/20/24 In Process Pain 01:37 Notify Md Of Changes SHARON 08/20/24 In Process From Base 01:37 Ultrasound Supervisor For SHARON 08/20/24 In Process 24 Hours 01:37 Emergency Dysrhythmia SHARON 08/20/24 In Process Protocol 01:37 Rhythm Strips Once SHARON 08/20/24 In Process Every Shift 01:37 Drug Screen LAB 08/20/24 Logged 01:37 Prothrombin Time W/ LAB 08/20/24 In Process INR 01:37 Complete Blood Count LAB 08/20/24 Logged 04:00 Comprehensive LAB 08/20/24 Logged Metabolic Panel 04:00 Pantoprazole PHA 08/20/24 In Process (Protonix) 10:00 Ondansetron Hcl PHA 08/20/24 In Process (Zofran) 01:45 * Cardiology Consult CONS 08/20/24 Transmitted 01:37 * Gi Dvh Induction [place] CONS 08/20/24 Transmitted 01:37 Sodium Chloride 0.9% PHA 08/20/24 In Process 01:45 Hydrocodone-Acet PHA 08/20/24 In Process 5/325mg Tab ([place] 01:45 Date of Service: Aug 20, 2024 Billing Provider: ERICKA KINNEY MD Common Visit Codes: [id number] INP/OBS CARE (HIGH) GUDELIA MCKEON RESDIENT Aug 20, 2024 02:08 ERICKA KINNEY MD Aug 20, 2024 17:42
[2024-08-20] MEDS: HYDROcodone-ACET 5/325MG TAB PO ONE (02:09)
[2024-08-20] MEDS: ONDANSETRON HCL 4 MG/2 ML VIAL IV ONE (02:10)
[2024-08-20] MEDS: SODIUM CHLORIDE 0.9% 500 ML IV ONE (02:18)
[2024-08-20] MEDS: PANTOPRAZOLE 40 MG/10 ML VIAL INJ IV ONE (02:18)
[2024-08-20 06:35] LABS: Basophils # (auto) 0 10 ^3/uL (0-0.2); Basophils % (auto) 0.3 % (0.0-2.0); Eosinophils # (auto) 0.1 10 ^3/uL (0-0.8); Eosinophils % (auto) 2.2 % (0.0-7.0); Hematocrit 37.2 % (41.0-53.0); Hemoglobin 12.7 g/dL (13.5-17.5); Lymphocytes # (auto) 2.2 10 ^3/uL (0.4-5.4); Lymphocytes % (auto) 34.8 % (10.0-50.0); Mean Corpuscular Hemoglobin 29.2 pg (28.0-32.0); Mean Corpuscular Hgb Conc. 34.1 g/dL (32.0-36.0); Mean Corpuscular Volume 85.6 fL (80.0-100.0); Monocytes # (auto) 0.6 10 ^3/uL (0-1.3); Monocytes % (auto) 9.9 % (0.0-12.0); Neutrophils # (auto) 3.4 10 ^3/uL (1.6-8.6); Neutrophils % (auto) 52.8 % (37.0-80.0); Nucleated Red Blood Cells % 0.1 %; Platelet Count (auto) 201 10^3/uL (140-450); Red Blood Cells 4.34 10^6/uL (4.5-5.90); Red Cell Distribution Width 14.4 % (11.8-14.3); White Blood Cell 6.4 10^3/uL (4.4-10.8)
[2024-08-20 06:50] LABS: Alkaline Phosphatase 86 U/L (46-116); Anion Gap 14 (5-15); Calcium 9.6 mg/dL (8.7-10.4); Glucose 79 mg/dL (74-106); Potassium 3.8 mmol/L (3.5-5.1); Sodium 141 mmol/L (136-145)
[2024-08-20 06:52] LABS: Albumin 4.4 g/dL (3.2-4.8); Aspartate Aminotransferase 39 U/L (13-40); Bilirubin, Total 0.7 mg/dL (0.2-1.0)
[2024-08-20 06:53] LABS: Alanine Aminotransferase 143 U/L (7-40); BUN/Creatinine Ratio 6.3 (10.0-20.0); Blood Urea Nitrogen < 5 mg/dL (9-23); Carbon Dioxide 19 mmol/L (20-31); Chloride 108 mmol/L (98-107)
--- NOTE | 2024-08-20 11:04 | ECG ---
[facility] Test Date: 2024-08-19 Test Time: 23:22:10 Pat Name: BO LEBLANC Department: ER Room: 0274T Gender: M Stud Master/Mistress: NICOLE : 2005 Requested By: GRACIELA DURBIN Order Number: [id number] Reading MD: Tucker Nagy Measurements Intervals [place] Rate: 100 P: 69 OH: 128 QRS: 63 QRSD: 82 T: -18 QT: 328 QTc: 423 Interpretive Statements Sinus tachycardia Borderline repolarization abnormality Electronically Signed On 08-23-2024 18:51:15 PDT by Tucker Nagy Please click the below link to view image of tracing.
[2024-08-20] MEDS: PANTOPRAZOLE 40 MG/10 ML VIAL INJ IV SCH (11:27)
--- NOTE | 2024-08-20 12:01 | DVHINCON2 ---
GI Consult Consult Note GI consult note Date of Consultation: 08/20/2024 Chief Complaint: Intractable vomiting Referring Physician: Dr. Carreon H&P: 18-year-old male with PMH of anxiety, presented to ER with epigastric abdominal pain that radiates into his chest. Patient describes pain as sharp in nature. Pain is worse after eating. Symptoms started two weeks ago but is getting worse Patient also complains of nausea and vomiting, mostly throwing up food. No hematemesis. Patient has history of GERD no medications BM 2-3 days ago. No melena or red blood in stool No EGD in past Patient also complains of feeling like his heart is racing Patient denies use of alcohol, cigarettes or marijuana or any other drugs Past Medical History: Anxiety Past Surgical History: Denies Social History: NO smoking, drinking ETOH and use of illegal drugs. Family History: Noncontributory Review of Systems: Constitutional: no fever, chill, weight loss HEENT: no eye pain, no hearing loss, no oral lesion, no scleral icterus Heart: no chest pain, no chest pressure Lung: no cough, no dyspnea with exertion Abdomen: see HPI Physical exam: General: NAD, AAOX3 Chest: lung coy clear to auscultation Heart: RRR, no murmur Abdomen: Xvig-pz-dwvinxva epigastric tenderness to palpation, +BS Labs: Labs Test 08/20/24 05:47 08/20/24 00:17 08/19/24 23:32 Range/Units White Blood Count 6.4 # 4.4-10.8 10^3/uL Red Blood Count 4.34 L 4.5-5.90 10^6/uL Hemoglobin 12.7 L 13.5-17.5 g/dL Hematocrit 37.2 L 41.0-53.0 % Mean Corpuscular Volume 85.6 80.0-100.0 fL Mean Corpuscular Hemoglobin 29.2 28.0-32.0 pg Mean Corpuscular Hemoglobin Concent 34.1 32.0-36.0 g/dL Red Cell Distribution Width 14.4 H 11.8-14.3 % Platelet Count 201 140-450 10^3/uL Mean Platelet Volume 10.8 6.9-10.8 fL Neutrophils (%) (Auto) 52.8 37.0-80.0 % Lymphocytes (%) (Auto) 34.8 10.0-50.0 % Monocytes (%) (Auto) 9.9 0.0-12.0 % Eosinophils (%) (Auto) 2.2 0.0-7.0 % Basophils (%) (Auto) 0.3 0.0-2.0 % Neutrophils # (Auto) 3.4 1.6-8.6 10 ^3/uL Lymphocytes # (Auto) 2.2 0.4-5.4 10 ^3/uL Monocytes # (Auto) 0.6 0-1.3 10 ^3/uL Eosinophils # (Auto) 0.1 0-0.8 10 ^3/uL Basophils # (Auto) 0 0-0.2 10 ^3/uL Nucleated Red Blood Cells 0.1 % Sodium Level 141 136-145 mmol/L Potassium Level 3.8 3.5-5.1 mmol/L Chloride Level 108 H 98-107 mmol/L Carbon Dioxide Level 19 L 20-31 mmol/L Anion Gap 14 5-15 Blood Urea Nitrogen < 5 L 9-23 mg/dL Creatinine 0.79 0.700-1.30 mg/dL Glomerular Filtration Rate Calc 130 >90 mL/min BUN/Creatinine Ratio 6.3 L 10.0-20.0 Serum Glucose 79 74-106 mg/dL Calcium Level 9.6 8.7-10.4 mg/dL Total Bilirubin 0.7 0.2-1.0 mg/dL Aspartate Amino Transferase (AST) 39 13-40 U/L Alanine Aminotransferase (ALT) 143 H 7-40 U/L Alkaline Phosphatase 86 46-116 U/L Total Protein 7.0 5.7-8.2 g/dL Albumin 4.4 3.2-4.8 g/dL Troponin I High Sensitivity 9 </=54 ng/L Prothrombin Time 11.4 9.3-11.8 sec Prothrombin Time INR 1.08 0.9-1.15 Imaging: Assessment: Intractable vomiting History of GERD Anxiety Plan: Discussed with Dr. Shad Garcia and Protonix Monitor labs Cardiology consult pending Possible EG recommended if symptoms of vomiting persist and cleared by Cardiology, otherwise outpatient follow-up recommended Thank you for this consult Date of Service: Aug 20, 2024 Billing Provider: ALEJANDRO MORGAN Common Visit Codes: CONSULT ONLY Consultation Codes: [id number] CONSULT <60MIN ALEJANDRO MORGAN Aug 20, 2024 12:01
--- NOTE | 2024-08-20 12:37 | DVHPN2 ---
Progress Note - Dictate Date Seen: Aug 19, 2024 Medical Necessity Reason Pt with a Central, PICC or Fol: No Subjective PT WITH EPIGASTRIC ABD PAIN SINUS TACHYCARDIA SECONDARY TO PAIN TROPONIN NEGATIVE ECG NEGATIVE ECHO NL EF vital signs Vital Sign Date Time Temp Pulse Resp B/P (MAP) Pulse Ox O2 Delivery O2 Flow Rate FiO2 08/20/24 11:30 98.5 84 15 104/40 (61) 95 98.5 08/20/24 07:35 Room Air* 0 21 Total Intake and Output 08/19/24 08/19/24 08/20/24 15:00 23:00 07:00 Intake Total 500 ml Balance 500 ml medications Current Medications Medications Dose Ordered Sig/Temo Route Start Time Stop Time Status Last Admin Dose Admin Nitroglycerin 0.4 mg Q5MINP PRN SL 08/20/24 01:45 Morphine Sulfate 2 mg Q30M PRN IV 08/20/24 01:45 Pantoprazole Sodium 40 mg DAILY IV 08/20/24 10:00 08/20/24 11:27 40 MG Ondansetron HCl 4 mg Q4HPRN PRN IV 08/20/24 01:45 Acetaminophen/ Hydrocodone Bitart 1 tab Q4HPRN PRN PO 08/20/24 01:45 laboratory and microbiology Laboratory Tests 08/20/24 05:47 Test 08/20/24 05:47 Range/Units Serum Glucose 79 74-106 mg/dL Problem List EPIGASTRIC ABD PAIN SINUS TACHYCARDIA SECONDARY TO PAIN TROPONIN NEGATIVE ECG NEGATIVE ECHO NL EF Assessment/Plan NON CARDIAC ISSUE WILL MONITOR ECG CHECK LABS Plan discussed with: Patient IAN NEUMANN MD Aug 20, 2024 12:37
--- NOTE | 2024-08-20 15:01 | DVHPN2 ---
Subjective Patient continues to report having epigastric pain. Reviewed: Care Plan, H&P Changes from previous H/P or p: No Changes, Changes General: Per HPI Objective Vitals Vital Signs Date Time Temp Pulse Resp B/P (MAP) Pulse Ox O2 Delivery O2 Flow Rate FiO2 08/20/24 12:00 76 08/20/24 11:30 98.5 15 104/40 (61) 95 98.5 08/20/24 07:35 Room Air* 0 21 Intake/Output Intake and Output 08/20/24 07:00 Intake Total 500 ml Balance 500 ml Intake IV Total 500 ml General Appearance: Alert, Oriented X3, Cooperative, No acute distress HEENT: Atraumatic, PERRLA Neck: Carotid [place] Cardiovascular: Normal S1, Normal S2 Abdomen: Normal bowel sounds, Soft, No tenderness, No hepatospenomegaly Genitourinary: No Apparent Abnormalities Musculoskeletal: Normal sensory function, Normal motor function Neuro: Normal gait, Normal speech Psych/Mental Status: Mental status NL, Mood NL Medications Current Medications Medications Dose Ordered Sig/Temo Route Start Time Stop Time Status Last Admin Dose Admin Nitroglycerin 0.4 mg Q5MINP PRN SL 08/20/24 01:45 Morphine Sulfate 2 mg Q30M PRN IV 08/20/24 01:45 Pantoprazole Sodium 40 mg DAILY IV 08/20/24 10:00 08/20/24 11:27 40 MG Ondansetron HCl 4 mg Q4HPRN PRN IV 08/20/24 01:45 Acetaminophen/ Hydrocodone Bitart 1 tab Q4HPRN PRN PO 08/20/24 01:45 Laboratory Results Laboratory Tests 08/20/24 05:47 Chemistry Test 08/19/24 23:32 08/20/24 05:47 Albumin 4.8 g/dL (3.2-4.8) 4.4 g/dL (3.2-4.8) Calcium Level 10.1 mg/dL (8.7-10.4) 9.6 mg/dL (8.7-10.4) Total Protein 7.6 g/dL (5.7-8.2) 7.0 g/dL (5.7-8.2) Coagulation Test 08/19/24 23:32 Prothrombin Time 11.4 sec (9.3-11.8) Prothrombin Time INR 1.08 (0.9-1.15) LFT Test 08/19/24 23:32 08/20/24 05:47 Alanine Aminotransferase (ALT) 171 U/L (7-40) H 143 U/L (7-40) H Alkaline Phosphatase 93 U/L (46-116) 86 U/L (46-116) Aspartate Amino Transferase (AST) 57 U/L (13-40) H 39 U/L (13-40) Total Bilirubin 0.6 mg/dL (0.2-1.0) 0.7 mg/dL (0.2-1.0) Labs and/or images reviewed: Labs reviewed by me, Image(s) reviewed by me Assessment/Plan Assessment/Plan Impression: -tachycardia -intractable nausea and vomiting -anxiety disorder -metabolic acidosis Plan: -cardiology recommendations appreciated -GI consultation: Plans for EGD if cleared by Cardiology -continue PPI -IV hydration -antiemetics -UDS -further course of care per specialist recommendations. Total time spent with patient discussing and formulating plan of care: 35 minutes. This medical document was created using an electronic medical record system with [employer] dictation system. Although this document has been carefully reviewed, there may still be some phonetic and typographical errors. These areas are purely typographical due to imperfections of the software programs, and do not reflect any compromise in the patient's medical care. Plan discussed with: Patient, Other (RN) Date of Service: Aug 20, 2024 Billing Provider: MONROE LEON NP Common Visit Codes: [id number] INP/OBS CARE(HIGH) MONROE LEON NP Aug 20, 2024 15:01
[2024-08-20] MEDS: LACTATED RINGER'S 1,000 ML IV ONE (15:48)
[2024-08-20 23:48] LABS: Urine Bacteria FEW /hpf (None Seen); Urine Blood Negative /uL (Negative); Urine Clarity Clear (Clear); Urine Color Colorless (Yellow); Urine Protein, UAD Negative (Negative); Urine Squamous Epithelial Cell FEW /hpf (<5); Urine Urobilinogen Normal (Negative); Urine WBC < 1 /HPF (0-3); Urine pH 5.5 (5.0-9.0)
[2024-08-20 23:59] LABS: Amphetamine Screen, Urine Neg (NEGATIVE); Barbiturate Scree,Urine Neg (NEGATIVE); Benzodiazephine Screen, Urine Neg (NEGATIVE); Cannabinoid Screen, Urine Neg (NEGATIVE); Cocaine Screen, Urine Neg (NEGATIVE); Opiate Scree,Urine Neg (NEGATIVE); Phencyclidine Screen, Urine Neg (NEGATIVE)
[2024-08-21] VITALS (9 sets, daily range): BP systolic 89–128; BP diastolic 41–94; PULSE 60–122; RESP 15–18; TEMP 97.5–98.7; O2SAT 99–100
[2024-08-21] MEDS: HYDROcodone-ACET 5/325MG TAB PO PRN (02:25)
[2024-08-21] MEDS ORDERED: diphenhdrAMINE HCL 50 MG/1 ML VL ONE (09:55)
[2024-08-21] MEDS ORDERED: fentaNYL CITRATE 100 MCG/2 ML VL ONE (09:55)
[2024-08-21] MEDS ORDERED: LIDOCAINE VISCOUS 2% 15ML UD ONE (09:55)
[2024-08-21] MEDS ORDERED: MIDAZOLAM HCL 5 MG/ML-1ML VIAL ONE (09:55)
[2024-08-21 11:19] LABS: Basophils # (auto) 0 10 ^3/uL (0-0.2); Basophils % (auto) 0.5 % (0.0-2.0); Eosinophils # (auto) 0.3 10 ^3/uL (0-0.8); Eosinophils % (auto) 5.2 % (0.0-7.0); Hematocrit 37.9 % (41.0-53.0); Hemoglobin 12.8 g/dL (13.5-17.5); Lymphocytes # (auto) 2.4 10 ^3/uL (0.4-5.4); Lymphocytes % (auto) 42.6 % (10.0-50.0); Mean Corpuscular Hemoglobin 28.8 pg (28.0-32.0); Mean Corpuscular Hgb Conc. 33.8 g/dL (32.0-36.0); Mean Corpuscular Volume 85.3 fL (80.0-100.0); Monocytes # (auto) 0.6 10 ^3/uL (0-1.3); Monocytes % (auto) 10.3 % (0.0-12.0); Neutrophils # (auto) 2.3 10 ^3/uL (1.6-8.6); Neutrophils % (auto) 41.4 % (37.0-80.0); Nucleated Red Blood Cells % 0.1 %; Platelet Count (auto) 208 10^3/uL (140-450); Red Blood Cells 4.44 10^6/uL (4.5-5.90); Red Cell Distribution Width 15.1 % (11.8-14.3); White Blood Cell 5.6 10^3/uL (4.4-10.8)
[2024-08-21 11:41] LABS: Chloride 105 mmol/L (98-107); Sodium 139 mmol/L (136-145)
[2024-08-21 11:42] LABS: Anion Gap 11 (5-15); Carbon Dioxide 23 mmol/L (20-31)
[2024-08-21 11:47] LABS: Glucose 77 mg/dL (74-106)
[2024-08-21 11:59] LABS: BUN/Creatinine Ratio 5.4 (10.0-20.0); Blood Urea Nitrogen < 5 mg/dL (9-23)
--- NOTE | 2024-08-21 13:02 | DVHPN2 ---
Subjective Patient continues to report having epigastric pain. Reviewed: Care Plan, H&P Changes from previous H/P or p: No Changes General: Per HPI Objective Vitals Vital Signs Date Time Temp Pulse Resp B/P (MAP) Pulse Ox O2 Delivery O2 Flow Rate FiO2 08/21/24 09:00 98.7 98 16 114/64 (81) 99 98.7 08/21/24 07:40 Nasal Cannula* 2 28 Intake/Output Intake and Output 08/21/24 07:00 Intake Total 510.25 ml Balance 510.25 ml Intake Oral 223 ml IV Total 287.25 ml # Voids 1 General Appearance: Alert, Oriented X3, Cooperative, No acute distress HEENT: Atraumatic, PERRLA Neck: Carotid [place] Cardiovascular: Normal S1, Normal S2 Abdomen: Normal bowel sounds, Soft, No tenderness, No hepatospenomegaly Genitourinary: No Apparent Abnormalities Musculoskeletal: Normal sensory function, Normal motor function Neuro: Normal gait, Normal speech Psych/Mental Status: Mental status NL, Mood NL Medications Current Medications Medications Dose Ordered Sig/Temo Route Start Time Stop Time Status Last Admin Dose Admin Nitroglycerin 0.4 mg Q5MINP PRN SL 08/20/24 01:45 Morphine Sulfate 2 mg Q30M PRN IV 08/20/24 01:45 Pantoprazole Sodium 40 mg DAILY IV 08/20/24 10:00 08/21/24 09:53 40 MG Ondansetron HCl 4 mg Q4HPRN PRN IV 08/20/24 01:45 Acetaminophen/ Hydrocodone Bitart 1 tab Q4HPRN PRN PO 08/20/24 01:45 Laboratory Results Laboratory Tests 08/21/24 11:03 Chemistry Test 08/21/24 11:03 Calcium Level 10.0 mg/dL (8.7-10.4) Urinalysis Test 08/20/24 23:00 Urine Color Colorless (Yellow) Urine Clarity Clear (Clear) Urine pH 5.5 (5.0-9.0) Urine Specific [place] 1.010 (1.001-1.035) Urine Protein Negative (Negative) Urine Ketones 3+ (Negative) H Urine Blood Negative /uL (Negative) Urine Nitrite Negative (Negative) Urine Bilirubin Negative (Negative) Urine Urobilinogen Normal mg/dL (Negative) Urine Leukocyte Esterase Negative /uL (Negative) Urine RBC <1 /hpf (0 - 3) Urine Microscopic WBC < 1 /HPF (0-3) Urine Squamous Epithelial Cells Few /hpf (<5) Urine Bacteria Few /hpf (None Seen) H Urine Glucose Normal mg/dL (Normal) Microbiology Microbiology Date/Time Source Procedure Growth Status 08/20/24 22:00 Nose MRSA Screen - Final Complete Labs and/or images reviewed: Labs reviewed by me, Image(s) reviewed by me Assessment/Plan Assessment/Plan Impression: -tachycardia -intractable nausea and vomiting -anxiety disorder -metabolic acidosis Plan: Events: No events overnight. EGD today. -Cardiology consultation: "non cardiac pain" -GI consultation: Plans for EGD if cleared by Cardiology -continue PPI -antiemetics -UDS -further course of care per specialist recommendations. Total time spent with patient discussing and formulating plan of care: 35 minutes. This medical document was created using an electronic medical record system with [employer] dictation system. Although this document has been carefully reviewed, there may still be some phonetic and typographical errors. These areas are purely typographical due to imperfections of the software programs, and do not reflect any compromise in the patient's medical care. Plan discussed with: Patient, Other (RN) My Orders Orders - MONROE LEON NP Procedure Category Date Status Time Clear Liq Diet DIET 08/20/24 Transmitted Dinner Date of Service: Aug 21, 2024 Billing Provider: MONROE LEON NP Common Visit Codes: [id number] INP/OBS CARE(HIGH) MONROE LEON NP Aug 21, 2024 13:02
[2024-08-21] MEDS ORDERED: PROP1TAB53 PO (13:25)
--- NOTE | 2024-08-21 16:36 | DVHPN2 ---
Progress Note - Dictate Date Seen: Aug 21, 2024 Medical Necessity Reason Pt with a Central, PICC or Fol: No Subjective Patient was brought down to the GI lab this afternoon for a possible endoscopy However the patient does not want an endoscopy at this time Patient is afraid that he is afraid of dying Patient is states that nobody is listening to him He is worried about his heart racing He wants to have GRIFFIN disease ruled out vital signs Vital Sign Date Time Temp Pulse Resp B/P (MAP) Pulse Ox O2 Delivery O2 Flow Rate FiO2 08/21/24 13:00 97.8 67 15 104/41 (62) 99 97.8 08/21/24 07:40 Nasal Cannula* 2 28 Total Intake and Output 08/20/24 08/20/24 08/21/24 15:00 23:00 07:00 Intake Total 287.25 ml 223 ml Balance 287.25 ml 223 ml medications Current Medications Medications Dose Ordered Sig/Temo Route Start Time Stop Time Status Last Admin Dose Admin Nitroglycerin 0.4 mg Q5MINP PRN SL 08/20/24 01:45 Morphine Sulfate 2 mg Q30M PRN IV 08/20/24 01:45 Pantoprazole Sodium 40 mg DAILY IV 08/20/24 10:00 08/21/24 09:53 40 MG Ondansetron HCl 4 mg Q4HPRN PRN IV 08/20/24 01:45 Acetaminophen/ Hydrocodone Bitart 1 tab Q4HPRN PRN PO 08/20/24 01:45 objective General: NAD, AAOX3 Chest: lung coy clear to auscultation Heart: RRR, no murmur Abdomen: Ivor-oy-ntlzspvs epigastric tenderness to palpation, +BS Ext no c/c/e Neuro A& O x 3 laboratory and microbiology Laboratory Tests 08/21/24 11:03 Test 08/21/24 11:03 Range/Units Serum Glucose 77 74-106 mg/dL Problems(with codes): (1) Tachycardia (2) Chest pain (3) Palpitations (4) Anxiety (5) Cardiomyopathy Prognosis Plan Patient appears to have severe anxiety issues and he is tremulous We will check a thyroid profile and check TSH Recommend psych evaluation and management Endoscopic procedure was canceled We will maintain normal Protonix 40 mg p.o. q.a.m. He can try Carafate 1 g p.o. q.h.s. Patient may benefit from a beta-vidhi Outpatient follow up with GI Services as needed Patient was given my contact information Plan discussed with: Patient, Other (Xander Gotti) KYLEE DURBIN MD Aug 21, 2024 16:36
[2024-08-21] MEDS: PROPRANOLOL HCL 20 MG TAB PO SCH (22:00)
[2024-08-22 01:00] VITALS: BP 116/58; PULSE 80; RESP 18; TEMP 98.4; O2SAT 100
[2024-08-22 05:00] VITALS: BP 120/75; PULSE 74; RESP 18; TEMP 98; O2SAT 100
[2024-08-22 08:00] VITALS: PULSE 82; PULSE 83; RESP 18; O2SAT 100
[2024-08-22 09:00] VITALS: BP 120/65; PULSE 82; RESP 16; TEMP 98.5; O2SAT 100
--- NOTE | 2024-08-22 11:11 | DVHPN2 ---
Progress Note Date Seen: Aug 22, 2024 Resident Creating Document: TERI BOX RESIDENT Medical Necessity Reason Pt with a Central, PICC or Fol: No Subjective Review of Systems Currently denies any nausea or vomiting Patient was brought down to the GI lab yesterday afternoon for a possible endoscopy However the patient does not want an endoscopy at this time Patient is afraid that he is afraid of dying Patient is states that nobody is listening to him He is worried about his heart racing He wants to have GRIFFIN disease ruled out Last bowel was 3 days ago Objective vital signs Vital Sign Date Time Temp Pulse Resp B/P (MAP) Pulse Ox O2 Delivery O2 Flow Rate FiO2 08/22/24 09:00 98.5 82 16 120/65 (83) 100 98.5 08/22/24 08:00 Nasal Cannula* 2 28 Total Intake and Output 08/21/24 08/21/24 08/22/24 15:00 23:00 07:00 Intake Total 200 ml 400 ml Balance 200 ml 400 ml medications Current Medications Medications Dose Ordered Sig/Temo Route Start Time Stop Time Status Last Admin Dose Admin Nitroglycerin 0.4 mg Q5MINP PRN SL 08/20/24 01:45 Morphine Sulfate 2 mg Q30M PRN IV 08/20/24 01:45 Pantoprazole Sodium 40 mg DAILY IV 08/20/24 10:00 08/21/24 09:53 40 MG Ondansetron HCl 4 mg Q4HPRN PRN IV 08/20/24 01:45 Acetaminophen/ Hydrocodone Bitart 1 tab Q4HPRN PRN PO 08/20/24 01:45 08/21/24 22:16 1 TAB Propranolol HCl 20 mg BID PO 08/21/24 22:00 Examination General Appearance: Cooperative. Well developed. Well nourished. NAD Head Exam: Normal inspection Neck Exam: Normal inspection. Non-tender. Normal alignment Pulmonary/Respiratory: Chest non-tender. Clear bilateral breath sounds, no crackles, no wheezing. Cardiovascular/Chest: Regular rate and rhythm. No murmurs. No JVD. Abdominal Exam: Normal bowel sounds. Soft. normal abdomen, no visible veins, mild epigastric tenderness to palpation No hepatospenomegaly. No masses Ankle Exam: Negative ankle edema Neuro/Mental Status: A&O x4. Coherent. Skin Exam: Normal inspection. Normal color. Warm. Dry laboratory and microbiology Laboratory Tests 08/21/24 11:03 Test 08/21/24 11:03 Range/Units Serum Glucose 77 74-106 mg/dL Microbiology Date/Time Source Procedure Growth Status 08/20/24 22:00 Nose MRSA Screen - Final Complete Labs and/or images reviewed: Labs reviewed by me, Image(s) reviewed by me Problem List/Assessment/Plan Problem List/Assessment/Plan Anxiety Palpitations Chest pain Cardiomyopathy Metabolic acidosis, now resolved Plan: Patient appears to have severe anxiety issues, tremulous TSH 1.71, ordered free T4 and T3 Recommend psych evaluation and management Endoscopic procedure was canceled yesterday Continue Protonix 40 mg p.o. q.a.m., Carafate 1 g p.o. q.h.s. Consider beta vidhi if okay with Cardiology Outpatient follow up with GI services as needed Plan discussed with Dr. Kulkarni Plan discussed with: Patient, Other (RN) TERI BOX RESIDENT Aug 22, 2024 11:11
--- NOTE | 2024-08-22 12:03 | DVHINCON2 ---
Date of Service if different f: Aug 22, 2024 Time of Service: 11:34 Consultation ([facility]) Consulting Physician: IVONE FAIR MD Labs Laboratory Tests Test 08/19/24 23:32 08/20/24 00:17 08/20/24 05:47 08/20/24 23:00 Prothrombin Time 11.4 sec (9.3-11.8) Prothromb Time International Ratio 1.08 (0.9-1.15) Troponin I High Sensitivity 9 ng/L (</=54) Total Bilirubin 0.7 mg/dL (0.2-1.0) Aspartate Amino Transf (AST/SGOT) 39 U/L (13-40) Alanine Aminotransferase (ALT/SGPT) 143 U/L (7-40) Alkaline Phosphatase 86 U/L (46-116) Total Protein 7.0 g/dL (5.7-8.2) Albumin 4.4 g/dL (3.2-4.8) Urine Color Colorless (Yellow) Urine Clarity Clear (Clear) Urine pH 5.5 (5.0-9.0) Urine Specific [place] 1.010 (1.001-1.035) Urine Protein Negative (Negative) Urine Ketones 3+ (Negative) Urine Blood Negative /uL (Negative) Urine Nitrite Negative (Negative) Urine Bilirubin Negative (Negative) Urine Urobilinogen Normal mg/dL (Negative) Urine Leukocyte Esterase Negative /uL (Negative) Urine RBC <1 /hpf (0 - 3) Urine Microscopic WBC < 1 /HPF (0-3) Urine Squamous Epithelial Cells Few /hpf (<5) Urine Bacteria Few /hpf (None Seen) Urine Glucose Normal mg/dL (Normal) Urine Opiates Screen Neg (NEGATIVE) Urine Fentanyl Screen Neg (NEGATIVE) Urine Barbiturates Screen Neg (NEGATIVE) Urine Phencyclidine Screen Neg (NEGATIVE) Urine Amphetamines Screen Neg (NEGATIVE) Urine Benzodiazepines Screen Neg (NEGATIVE) Urine Cocaine Screen Neg (NEGATIVE) Urine Cannabinoids Screen Neg (NEGATIVE) Test 08/21/24 11:03 08/22/24 04:42 White Blood Count 5.6 10^3/uL (4.4-10.8) Red Blood Count 4.44 10^6/uL (4.5-5.90) Hemoglobin 12.8 g/dL (13.5-17.5) Hematocrit 37.9 % (41.0-53.0) Mean Corpuscular Volume 85.3 fL (80.0-100.0) Mean Corpuscular Hemoglobin 28.8 pg (28.0-32.0) Mean Corpuscular Hemoglobin Concent 33.8 g/dL (32.0-36.0) Red Cell Distribution Width 15.1 % (11.8-14.3) Platelet Count 208 10^3/uL (140-450) Mean Platelet Volume 10.3 fL (6.9-10.8) Neutrophils (%) (Auto) 41.4 % (37.0-80.0) Lymphocytes (%) (Auto) 42.6 % (10.0-50.0) Monocytes (%) (Auto) 10.3 % (0.0-12.0) Eosinophils (%) (Auto) 5.2 % (0.0-7.0) Basophils (%) (Auto) 0.5 % (0.0-2.0) Neutrophils # (Auto) 2.3 10 ^3/uL (1.6-8.6) Lymphocytes # (Auto) 2.4 10 ^3/uL (0.4-5.4) Monocytes # (Auto) 0.6 10 ^3/uL (0-1.3) Eosinophils # (Auto) 0.3 10 ^3/uL (0-0.8) Basophils # (Auto) 0 10 ^3/uL (0-0.2) Nucleated Red Blood Cells 0.1 % Sodium Level 139 mmol/L (136-145) Potassium Level 4.0 mmol/L (3.5-5.1) Chloride Level 105 mmol/L (98-107) Carbon Dioxide Level 23 mmol/L (20-31) Anion Gap 11 (5-15) Blood Urea Nitrogen < 5 mg/dL (9-23) Creatinine 0.93 mg/dL (0.700-1.30) Glomerular Filtration Rate Calc 121 mL/min (>90) BUN/Creatinine Ratio 5.4 (10.0-20.0) Serum Glucose 77 mg/dL (74-106) Calcium Level 10.0 mg/dL (8.7-10.4) Thyroid Stimulating Hormone (TSH) 1.71 uIU/mL (0.55-4.78) Microbiology Date/Time Source Procedure Growth Status 08/20/24 22:00 Nose MRSA Screen - Final Complete Appearance: Stated age Psychomotor activity: WNL Behavioral: Cooperative Eye contact: Appropriate Speech: WNL Affect: Appropriate, Mood Congruent Mood: Anxious Thought content: WNL Suicidal ideations: Absent Homicidal ideations: Absent Orientation: Person, Place, Time, Situation Memory intact: Recent Intellect: Average Abstractability: WNL Concentration: Adequate Attention: Adequate Judgement: WNL Insight: Good Vitals Vital Signs Date Time Temp Pulse Resp B/P (MAP) Pulse Ox O2 Delivery O2 Flow Rate FiO2 08/22/24 09:00 98.5 82 16 120/65 (83) 100 98.5 08/22/24 08:00 Nasal Cannula* 2 28 Current medications Current Medications Medications Dose Ordered Sig/Temo Route Start Time Stop Time Status Last Admin Dose Admin Nitroglycerin 0.4 mg Q5MINP PRN SL 08/20/24 01:45 Morphine Sulfate 2 mg Q30M PRN IV 08/20/24 01:45 Pantoprazole Sodium 40 mg DAILY IV 08/20/24 10:00 08/21/24 09:53 40 MG Ondansetron HCl 4 mg Q4HPRN PRN IV 08/20/24 01:45 Acetaminophen/ Hydrocodone Bitart 1 tab Q4HPRN PRN PO 08/20/24 01:45 08/21/24 22:16 1 TAB Propranolol HCl 20 mg BID PO 08/21/24 22:00 Treatment plan discussed: With staff Medication adjusted: Yes Labs ordered: No Psychotherapy provided: Yes Type: Voluntary History of Present Illness Reason for Consult : psychiatric evaluation PER H&P: This is a 18-year-old male with past medical history of anxiety came to the hospital due to epigastric abdominal pain and tachycardia. Patient was admitted at [facility] on 07/28/2024 due to same symptoms, evaluated by talent acquisition relationship manager (Dr. Thorne), and was put on Holter monitoring 2 days back. Patient is still complains of tachycardia which has increased since 1 weeks. He has burning-type epigastric pain radiating to the throat also reproducible by touching. He also reports shortness of breath, tremor, nausea and vomiting. Denies palpitation, fever, cough, or any recent sick contact. Per patient he has intentional loss of 15 lb weight within last month. PSYCHIATRIST HPI: The patient was seen and evaluated at [facility] via telepsychiatry platform. 18 yr old male was admitted for epigastric pain and tachycardia. He reported "I'm worried about my health in general." Over the past 6 weeks, he had some symptoms and they can't figure out what is wrong. He has a constant fear that something is happening. He feels some impending doom that something will go wrong. He had been prescribed zoloft and propranolol which he took for two days (starting two weeks ago), but the talent acquisition relationship manager told him to not to take any medications at all. He noted he is wearing holter monitor to check out his heart rate. He reported he has slept the last week and a half better than a month ago. He gets 6-6.5 hrs sleep which he feels is not enough. He feels restless, has stomach pain, low energy and worries about his health constantly. He noted he had no side effects when taking Zoloft for two days. He denied having suicidal or homicidal ideation, and denied having auditory or visual hallucinations. Past Psychiatric History: No h/o hospitalizations, treatment or suicide attempts. Current psych medications: none. NKDA Substance use: Denied using tobacco, alcohol and drugs. Supplements-had taken magnesium, vitamins, creatine. Social History : Lives in [place] with parents and three younger siblings (he is second oldest and older brother has moved out). 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 DIAGNOSIS: Unspecified Anxiety disorder Formulation: This 18 yr old male appears to suffer from anxiety. He may benefit from starting an SSRI (when cleared by cardiology) and may also benefit from sl eep medication. He does not warrant psychiatric hospitalization Plan: 1. Safety. The patient is a low risk for self-harm and may be managed as an outpatient. 2. Legal-voluntary. 3. Medications: Risks, benefits, adverse effects were discussed and recommend starting the following medication: Zoloft 50mg qam for anxiety reduction If sleep medication is desired, start Trazodone 50 mg qhs prn insomnia. 4. Case discussed with KRISTEL Doshi and LUZ MARIA Gotti 5. Please recontact psychiatry for further follow up or reevaluation. Assessment/Diagnosis/Plan Reviewed: Labs, Medications, Previous Orders IVONE FAIR MD Aug 22, 2024 11:55
[2024-08-22] MEDS: dilTIAZem 120MG ER CAP PO SCH (12:15)
--- NOTE | 2024-08-22 12:37 | DVHPN2 ---
Subjective Continues to report having shortness of breath Reviewed: Care Plan, H&P Changes from previous H/P or p: No Changes General: Per HPI Objective Vitals Vital Signs Date Time Temp Pulse Resp B/P (MAP) Pulse Ox O2 Delivery O2 Flow Rate FiO2 08/22/24 09:00 98.5 82 16 120/65 (83) 100 98.5 08/22/24 08:00 Nasal Cannula* 2 28 Intake/Output Intake and Output 08/22/24 07:00 Intake Total 600 ml Balance 600 ml Intake Oral 600 ml # Voids 3 General Appearance: Alert, Oriented X3, Cooperative, No acute distress HEENT: Atraumatic, PERRLA Neck: Carotid [place] Cardiovascular: Normal S1, Normal S2 Abdomen: Normal bowel sounds, Soft, No tenderness, No hepatospenomegaly Genitourinary: No Apparent Abnormalities Musculoskeletal: Normal sensory function, Normal motor function Neuro: Normal gait, Normal speech Psych/Mental Status: Mental status NL, Mood NL Medications Current Medications Medications Dose Ordered Sig/Temo Route Start Time Stop Time Status Last Admin Dose Admin Nitroglycerin 0.4 mg Q5MINP PRN SL 08/20/24 01:45 Morphine Sulfate 2 mg Q30M PRN IV 08/20/24 01:45 Pantoprazole Sodium 40 mg DAILY IV 08/20/24 10:00 08/21/24 09:53 40 MG Ondansetron HCl 4 mg Q4HPRN PRN IV 08/20/24 01:45 Acetaminophen/ Hydrocodone Bitart 1 tab Q4HPRN PRN PO 08/20/24 01:45 08/21/24 22:16 1 TAB Propranolol HCl 20 mg BID PO 08/21/24 22:00 Laboratory Results Laboratory Tests 08/21/24 11:03 HgA1c, TSH Test 08/22/24 04:42 Thyroid Stimulating Hormone (TSH) 1.71 uIU/mL (0.55-4.78) Urinalysis Test 08/20/24 23:00 Urine Color Colorless (Yellow) Urine Clarity Clear (Clear) Urine pH 5.5 (5.0-9.0) Urine Specific [place] 1.010 (1.001-1.035) Urine Protein Negative (Negative) Urine Ketones 3+ (Negative) H Urine Blood Negative /uL (Negative) Urine Nitrite Negative (Negative) Urine Bilirubin Negative (Negative) Urine Urobilinogen Normal mg/dL (Negative) Urine Leukocyte Esterase Negative /uL (Negative) Urine RBC <1 /hpf (0 - 3) Urine Microscopic WBC < 1 /HPF (0-3) Urine Squamous Epithelial Cells Few /hpf (<5) Urine Bacteria Few /hpf (None Seen) H Urine Glucose Normal mg/dL (Normal) Microbiology Microbiology Date/Time Source Procedure Growth Status 08/20/24 22:00 Nose MRSA Screen - Final Complete Labs and/or images reviewed: Labs reviewed by me, Image(s) reviewed by me Assessment/Plan Assessment/Plan Impression: -tachycardia -intractable nausea and vomiting -anxiety disorder -metabolic acidosis Plan: Events: Patient use EGD yesterday evening. Reviewed bedside telemetry with noted wandering atrial pacemaker in addition to multifocal atrial tachycardia runs. -start Cardizem XL 120 mg p.o. daily -psychiatry consultation: Discussed case with Dr. Iverson. Restart Zoloft 50 mg p.o. daily -GI consultation: Plans for EGD if cleared by Cardiology -continue PPI -antiemetics -continue to monitor patient and reassess for discharge planning. Total time spent with patient discussing and formulating plan of care: 35 minutes. This medical document was created using an electronic medical record system with [employer] dictation system. Although this document has been carefully reviewed, there may still be some phonetic and typographical errors. These areas are purely typographical due to imperfections of the software programs, and do not reflect any compromise in the patient's medical care. Plan discussed with: Patient, Other (RN) My Orders Orders - MONROE LEON NP Procedure Category Date Status Time *Tele Psych Consult CONS 08/21/24 Transmitted 17:04 Orthostatic Vital ORDERS 08/22/24 Transmitted Signs 10:24 Diltiazem Er Capsule PHA 08/22/24 Logged (Cardizem Er Capsul 12:15 Sertraline Hcl PHA 08/22/24 Logged (Zoloft) 12:15 Date of Service: Aug 22, 2024 Billing Provider: MONROE LEON NP Common Visit Codes: [id number] INP/OBS CARE(HIGH) MONROE LEON NP Aug 22, 2024 12:37
[2024-08-22 13:00] VITALS: BP_SYST 120; BP_SYST 130; BP_DIAS 67; BP_DIAS 73; PULSE 90; PULSE 91; RESP 14; RESP 18; TEMP 98.2; TEMP 98.4; O2SAT 100; O2SAT 97
[2024-08-22] MEDS: SERTRALINE HCL 50 MG TAB PO SCH (13:32)
--- NOTE | 2024-08-22 15:04 | DVHPN2 ---
Progress Note - Dictate Date Seen: Aug 22, 2024 Medical Necessity Reason Pt with a Central, PICC or Fol: No Subjective PT WITH EPIGASTRIC ABD PAIN SINUS TACHYCARDIA SECONDARY TO PAIN TROPONIN NEGATIVE ECG NEGATIVE ECHO NL EF vital signs Vital Sign Date Time Temp Pulse Resp B/P (MAP) Pulse Ox O2 Delivery O2 Flow Rate FiO2 08/22/24 13:00 98.2 90 18 130/73 (92) 100 98.2 08/22/24 08:00 Nasal Cannula* 2 28 Total Intake and Output 08/21/24 08/21/24 08/22/24 15:00 23:00 07:00 Intake Total 200 ml 400 ml Balance 200 ml 400 ml medications Current Medications Medications Dose Ordered Sig/Temo Route Start Time Stop Time Status Last Admin Dose Admin Nitroglycerin 0.4 mg Q5MINP PRN SL 08/20/24 01:45 Morphine Sulfate 2 mg Q30M PRN IV 08/20/24 01:45 Pantoprazole Sodium 40 mg DAILY IV 08/20/24 10:00 08/21/24 09:53 40 MG Ondansetron HCl 4 mg Q4HPRN PRN IV 08/20/24 01:45 Acetaminophen/ Hydrocodone Bitart 1 tab Q4HPRN PRN PO 08/20/24 01:45 08/21/24 22:16 1 TAB Diltiazem HCl 120 mg DAILY PO 08/22/24 12:15 Sertraline HCl 50 mg DAILY PO 08/22/24 12:15 08/22/24 13:32 50 MG laboratory and microbiology Laboratory Tests 08/21/24 11:03 Test 08/21/24 11:03 Range/Units Serum Glucose 77 74-106 mg/dL Problem List EPIGASTRIC ABD PAIN SINUS TACHYCARDIA SECONDARY TO PAIN TROPONIN NEGATIVE ECG NEGATIVE ECHO NL EF STARTED ON CARDIZEM Assessment/Plan NON CARDIAC ISSUE WILL MONITOR ECG CHECK LABS Dietary Evaluation Review Comments: Continue current plan of care Expected Outcomes/Goals: Pt will meet >75% estimated needs Fu 5-7 days Plan discussed with: Patient IAN NEUMANN MD Aug 22, 2024 15:04
[2024-08-22] MEDS ORDERED: DILT1TAB2 PO (15:23)
--- NOTE | 2024-08-22 15:26 | DVHDS2 ---
Discharge Summary Date of Admission Aug 20, 2024 at 01:37 Date of Discharge: Aug 22, 2024 Admitting Diagnosis Intractable nausea and vomiting Labs/Diagnostic Data: Laboratory Results Test 08/22/24 04:42 08/21/24 11:03 08/20/24 23:00 08/20/24 05:47 Thyroid Stimulating Hormone (TSH) 1.71 uIU/mL (0.55-4.78) White Blood Count 5.6 10^3/uL (4.4-10.8) Red Blood Count 4.44 10^6/uL (4.5-5.90) Hemoglobin 12.8 g/dL (13.5-17.5) Hematocrit 37.9 % (41.0-53.0) Mean Corpuscular Volume 85.3 fL (80.0-100.0) Mean Corpuscular Hemoglobin 28.8 pg (28.0-32.0) Mean Corpuscular Hemoglobin Concent 33.8 g/dL (32.0-36.0) Red Cell Distribution Width 15.1 % (11.8-14.3) Platelet Count 208 10^3/uL (140-450) Mean Platelet Volume 10.3 fL (6.9-10.8) Neutrophils (%) (Auto) 41.4 % (37.0-80.0) Lymphocytes (%) (Auto) 42.6 % (10.0-50.0) Monocytes (%) (Auto) 10.3 % (0.0-12.0) Eosinophils (%) (Auto) 5.2 % (0.0-7.0) Basophils (%) (Auto) 0.5 % (0.0-2.0) Neutrophils # (Auto) 2.3 10 ^3/uL (1.6-8.6) Lymphocytes # (Auto) 2.4 10 ^3/uL (0.4-5.4) Monocytes # (Auto) 0.6 10 ^3/uL (0-1.3) Eosinophils # (Auto) 0.3 10 ^3/uL (0-0.8) Basophils # (Auto) 0 10 ^3/uL (0-0.2) Nucleated Red Blood Cells 0.1 % Sodium Level 139 mmol/L (136-145) Potassium Level 4.0 mmol/L (3.5-5.1) Chloride Level 105 mmol/L (98-107) Carbon Dioxide Level 23 mmol/L (20-31) Anion Gap 11 (5-15) Blood Urea Nitrogen < 5 mg/dL (9-23) Creatinine 0.93 mg/dL (0.700-1.30) Glomerular Filtration Rate Calc 121 mL/min (>90) BUN/Creatinine Ratio 5.4 (10.0-20.0) Serum Glucose 77 mg/dL (74-106) Calcium Level 10.0 mg/dL (8.7-10.4) Urine Color Colorless (Yellow) Urine Clarity Clear (Clear) Urine pH 5.5 (5.0-9.0) Urine Specific [place] 1.010 (1.001-1.035) Urine Protein Negative (Negative) Urine Ketones 3+ (Negative) Urine Blood Negative /uL (Negative) Urine Nitrite Negative (Negative) Urine Bilirubin Negative (Negative) Urine Urobilinogen Normal mg/dL (Negative) Urine Leukocyte Esterase Negative /uL (Negative) Urine RBC <1 /hpf (0 - 3) Urine Microscopic WBC < 1 /HPF (0-3) Urine Squamous Epithelial Cells Few /hpf (<5) Urine Bacteria Few /hpf (None Seen) Urine Glucose Normal mg/dL (Normal) Urine Opiates Screen Neg (NEGATIVE) Urine Fentanyl Screen Neg (NEGATIVE) Urine Barbiturates Screen Neg (NEGATIVE) Urine Phencyclidine Screen Neg (NEGATIVE) Urine Amphetamines Screen Neg (NEGATIVE) Urine Benzodiazepines Screen Neg (NEGATIVE) Urine Cocaine Screen Neg (NEGATIVE) Urine Cannabinoids Screen Neg (NEGATIVE) Total Bilirubin 0.7 mg/dL (0.2-1.0) Aspartate Amino Transferase (AST) 39 U/L (13-40) Alanine Aminotransferase (ALT) 143 U/L (7-40) Alkaline Phosphatase 86 U/L (46-116) Total Protein 7.0 g/dL (5.7-8.2) Albumin 4.4 g/dL (3.2-4.8) Test 08/20/24 00:17 08/19/24 23:32 Troponin I High Sensitivity 9 ng/L (</=54) Prothrombin Time 11.4 sec (9.3-11.8) Prothrombin Time INR 1.08 (0.9-1.15) Other Laboratory Tests 08/21/24 11:03 Brief Hx & Hospital Course: History of Present Illness This is a 18-year-old male with past medical history of anxiety came to the hospital due to epigastric abdominal pain and tachycardia. Patient was admitted at [facility] on 07/28/2024 due to same symptoms, evaluated by bulk truck driver (Dr. Thorne), and was put on Holter monitoring 2 days back. Patient is still complains of tachycardia which has increased since 1 weeks. He has burning-type epigastric pain radiating to the throat also reproducible by touching. He also reports shortness of breath, tremor, nausea and vomiting. Denies palpitation, fever, cough, or any recent sick contact. Per patient he has intentional loss of 15 lb weight within last month. Course of hospitalization: Patient had cardiology consultation, with Cardiology attributing his chest discomfort to noncardiac etiology. Patient had GI consultation, with patient having plan EGD, for which the patient refused when she got to the GI lab. According to Dr. Apurva Kulkarni, the patient did not have as an intense nausea and vomiting as he originally claimed. While in the hospital, patient was noted to have somewhat exaggerated symptoms of chest pain, generalized malaise, while resting in bed. The patient was noted to have cardiac dysrhythmias: Noted wandering atrial pacemaker rhythm, as well as periods of multifocal atrial tachycardia. Patient was placed on propranolol prior to coming in the hospital, for which she was taken off of by Cardiology. Patient had repeat consultation with Psychiatry, for which I myself discussed the case with Dr. Iverson. Recommendations were implemented with the patient was plan of care. Attempts were to restart the medication for which the patient refused. Long discussion was made with the father as well as the patient regarding his symptoms, being attributed to his anxiety disorder which was previously diagnosed on his admission to this hospital prior to this current admission. As of note, the patient was also taken off of Zoloft by the bulk truck driver. Patient will be restarted on Zoloft and given a trial of Cardizem. Patient was requesting to be discharged after having a long discussion that other than the findings of his cardiac arrhythmias, all of his tests have come back essentially unremarkable. Patient was suggested to follow up with his PCP and obtain continued monitoring by Psychiatry for his anxiety disorder. Physical examination General: Alert and Oriented x3. No acute distress. Well-nourished. Eyes: EOMI. Anicteric. HENT: Moist mucous membranes. Lungs: Clear to auscultation bilaterally. No accessory muscle use. Cardiovascular: Regular rate and rhythm. No murmur. No JVD. Abdomen: Soft, non-tender and non-distended. No palpable masses. Extremities: No edema. Non-tender. Skin: No rashes or lesions. Warm. Neurologic: No focal neurological deficits. CN II-XII grossly intact, but not individually tested. Psychiatric: Cooperative. Appropriate mood and affect. Total time spent with patient discussing and formulating plan of care: 35 minutes. This medical document was created using an electronic medical record system with [employer] dictation system. Although this document has been carefully reviewed, there may still be some phonetic and typographical errors. These areas are purely typographical due to imperfections of the software programs, and do not reflect any compromise in the patient's medical care. Consults/Reason for consult Cardiology: Chest discomfort Gastroenterology: Questionable GERD. Intractable nausea and vomiting Psychiatry: Anxiety disorder Condition at Discharge: Fair Final Diagnosis/Problems List Multifocal Atrial Tachycardia Secondary diagnosis: -intractable nausea and vomiting -anxiety disorder -metabolic acidosis Discharge Disposition: Home Discharge Instruct/Medications Diet: Regular Activity: No Restrictions, As Tolerated Follow Up/Referral: Recommend to follow up with PCP in 1-2 weeks and obtain referral to psychiatry for management of Anxiety disorder. Currently on Zoloft. Medications: Zoloft 50mg po daily Cardizem xl 120mg po daily. Hold for HR less than 60 36 Discharge Statement: "Patient was advised to return to the ER or call 911 if any headaches, dizziness, shortness of breath, chest pain, abdominal pain, bleeding, fevers, or worsening of medical condition. Patient was counseled about treatment plan, medications, possible side effects, patientverbalized understanding. All questions were answered to the best of my ability. This discharge took greater then 30 minutes in planning, reviewing documentation, counseling the patient, and discussing with other team members." ASSESSMENT ASSESSMENT Assessment Multifocal Atrial Tachycardia Date of Service: Aug 24, 2024 Billing Provider: MONROE LEON NP Common Visit Codes: 79692-ZSG/OBS DISCH DAY >30min MONROE LEON NP Aug 22, 2024 15:26
[2024-08-22 15:55] VITALS: BP 138/68; PULSE 97; RESP 18; TEMP 98.6; O2SAT 100
[2024-08-23 11:07] LABS: Free Thyroxine Index 3.1 (1.2-4.9); Thyroxine (T4) 8.9 ug/dL (4.5-12.0)
== END 2024-08-22 16:30 | disposition home or self-care (01) | DRG 243 ==
LOC: ER 23:18 → OVERFLOW 08-20 01:37 → TELE-WESTW 08-20 18:24 → WEST WING 08-20 21:04 → TELE-WESTW 08-21 10:57
PROVIDERS: ADMIT Nurse Practitioner Acute Care; ATTEND Nurse Practitioner Acute Care
DX: K21.9 Gastro-esophageal reflux disease without esophagitis (principal); E87.20 Acidosis, unspecified; I42.9 Cardiomyopathy, unspecified; I47.19 Other supraventricular tachycardia; F41.9 Anxiety disorder, unspecified; R74.01 Elevation of levels of liver transaminase levels; Z79.899 Other long term (current) drug therapy
CPT/HCPCS: 36415; 71045; 80048; 80053; 80307; 81001; 84443; 84484; 85025; 85610; 87081; 93005; G0378; J2250; J2405; J2470

== ENCOUNTER 2024-08-22 17:56 | Emergency (ER) | payer MEDICAID ==
[~2024-08-22] VITALS: Ht 177.8 cm; Wt 77.5 kg
[2024-08-22 17:56] VITALS: BP 134/81; RESP 16; TEMP 98.4; O2SAT 100
[~2024-08-22 17:56] MED LIST changes: +DILT1TAB2 PO; +PROP1TAB53 PO
--- NOTE | 2024-08-22 18:22 | ED.PDOC ---
History of Present Illness HPI Comments 18-year-old male came to emergency room by EMS for chest pain. Patient was admitted here 2 days ago, for chest pains and nausea and vomiting, was diagnosed with multifocal atrial tachycardia and was sent home 2 hours ago. Patient apparently wasn't satisfied with his management opted to go to [facility] for a second opinion, however on the way there he started having sharp left sided chest pains again, lasting about 2 minutes which prompted him to go back to this ER. Patient was prescribed Zoloft and cardizem however patient is not taking the medication. Chief Complaint: Chest Pain Time Seen by MD: 18:21 Reviewed Notes: Public Health Social Worker Notes Allergies: Coded Allergies: NO KNOWN ALLERGIES (Unverified , 07/28/24) Home Meds Active Scripts Diltiazem Hcl (Cardizem La) 120 Mg Tab, 120 MG PO DAILY for 30 Days, #30 TAB Prov:MONROE LEON AREA DEVELOPMENT CONSULTANT 08/22/24 Hydroxyzine Hcl (Hydroxyzine Hcl) 25 Mg Tab, 25 MG PO DAILY PRN for 30 Days, #30 TAB Prov:MONROE LEON AREA DEVELOPMENT CONSULTANT 07/30/24 Sertraline HCl (Sertraline HCl) 50 Mg Tab, 50 MG PO DAILY for 21 Days, #21 TAB Give after 1st week of 25 mg p.o. daily Prov:MONROE LEON NP 07/30/24 Discontinued Reported Medications Propranolol HCl (Propranolol Hydrochloride) 20 Mg Tab, 1 TAB PO BID 08/21/24 Discontinued Scripts Sertraline Hcl (Sertraline Hcl) 25 Mg Tab, 1 TAB PO DAILY for 7 Days, #7 TAB 2 Refills Prov:MONROE LEON AREA DEVELOPMENT CONSULTANT 07/30/24 Information Source: Patient, Emergency Med Personnel Mode of Arrival: EMS Review of Systems REVIEW OF SYSTEMS: No fever, no chills, or fatigue HEENT: No sore throat, no earache, no congestion, no neck pain. Cardiac: (+) chest pain. No palpitations. Lungs: No shortness of breath, no cough. GI: No nausea, no vomiting, no diarrhea, no constipation, no abdominal pain : No dysuria, frequency, or urgency. No hematuria. Musculoskeletal: No joint pain , no joint swelling, no extremity edema. Skin: No rash, no itching. Neuro: No headache, no dizziness, no weakness Vital Signs Vital Signs Date Time Temp Pulse Resp B/P (MAP) Pulse Ox O2 Delivery O2 Flow Rate FiO2 08/22/24 18:52 113 08/22/24 17:56 98.4 16 134/81 (98) 100 98.4 Physical Exam General: Awake, alert and oriented. No acute distress. Skin: Skin in warm, dry and intact. Appropriate color for ethnicity. Nailbeds pink with no cyanosis. HEENT: The head is normocephalic and atraumatic. Conjunctivae are clear without exudates or hemorrhage. Sclera is non-icteric. EOM are intact. No signs of nystagmus. Eyelids are normal in appearance without swelling or lesions. Oral mucosa is pink and moist Neck: The neck is supple with normal range of motion. No JVD. Cardiac: Rapid rate, regular rhythm. No murmurs, gallops, or rubs are auscultated. Respiratory: No signs of respiratory distress. Lung sounds are clear in all lobes bilaterally without rales, ronchi, or wheezes. Abdominal: Abdomen is soft, non-tender without distention. Bowel sounds are present and normoactive in all four quadrants. Extremities: Upper and lower extremities are atraumatic in appearance without deformity or edema. Neurological: The patient is awake, alert and oriented to person, place, and time with normal speech. Speech is clear. There is no facial asymmetry. Psychiatric: Appropriate mood and affect. Good judgement and insight. No visual or auditory hallucinations. Past Medical History PAST MEDICAL HISTORY: Anxiety, GERD Surgical History: Denies all surgeries Family History Family History: Reviewed,noncontributory to illness Social History Smoker: Non-Smoker Alcohol: Denies ETOH Use Drugs: Denies Drug Use Lives In: Home Was a procedure done? Was a procedure done?: No EKG EKG : Pulse Rate (adult): 108 Cardiac Rhythm: ST Differential Dx Considerations may include: anemia. electrolyte imbalance, MAT, anxiety X-Ray, Labs, Meds, VS Vital Signs Date Time Temp Pulse Resp B/P (MAP) Pulse Ox O2 Delivery O2 Flow Rate FiO2 08/22/24 18:52 113 08/22/24 18:26 108 08/22/24 18:00 108 08/22/24 17:56 98.4 120 16 134/81 (98) 100 98.4 Lab Test 08/22/24 18:24 Range/Units Troponin I High Sensitivity 9 </=54 ng/L Time of 1ST Reevaluation: 18:16 Reevaluation 1ST: Unchanged Patient Education/Counseling: Diagnosis, Treatment Family Education/Counseling: No Family Present Departure 1 Departure Time of Disposition: 20:21 Impression: Primary Impression: Chest pain Additional Impressions: Palpitations Sinus tachycardia Eloped from emergency department Disposition: LEFT AWOL/ELOPED Condition: Stable Comments 18-year-old male who presents with chest pain and palpitations. Had recent admission for similar, those records were reviewed. Dose of Cardizem ordered for the emergency department. Attempted to find patient in the emergency department, lobby, in the parking lot for re-evaluation. Was unable to locate patient. Critical Care Note Critical Care Time?: Yes (35 min-critical care time only) Stability Stability form required: No Heart Score Heart Score: Heart Score Response (Comments) Value History Moderate Suspicious 1 EKG Repolarization Disturb 1 Age <45 0 Risk Factors 1 or 2 risk factors 1 Troponin Normal limit 0 Total 3 I personally scribed for DANIELLE BENITEZ MD ([email or web address]) on 08/22/24 at 18:22. Electronically submitted by Kiel Pascal ([employer] I personally scribed for DANIELLE BENITEZ MD ([email or web address]) on 08/22/24 at 18:26. Electronically submitted by Kiel Pascal ([employer] I personally scribed for DANIELLE BENITEZ MD ([email or web address]) on 08/22/24 at 20:26. Electronically submitted by Kiel Pascal ([employer] DANIELLE BENITEZ MD Aug 22, 2024 18:22
[2024-08-22 18:52] VITALS: PULSE 113
[2024-08-22] MEDS ORDERED: dilTIAZem HCL 180MG ER CAP PO ONE (19:00)
--- NOTE | 2024-08-22 19:16 | ECG ---
[facility] Test Date: 2024-08-22 Test Time: 17:57:00 Pat Name: BO LEBLANC Department: ED Room: Gender: M [employer] Contact Printer: MAXIM : 2005 Requested By: DANIELLE BENITEZ Order Number: [id number] Reading MD: Tucker Nagy Measurements Intervals [place] Rate: 108 P: 71 ND: 127 QRS: 65 QRSD: 90 T: -55 QT: 315 QTc: 422 Interpretive Statements Sinus tachycardia Nonspecific repol abnormality, diffuse leads Electronically Signed On 08-23-2024 19:21:14 PDT by Tucker Nagy Please click the below link to view image of tracing.
--- NOTE | 2024-08-22 19:17 | ECG ---
[facility] Test Date: 2024-08-22 Test Time: 18:48:14 Pat Name: BO LEBLANC Department: ED Room: Gender: M Wire Chief: MAXIM : 2005 Requested By: DANIELLE BENITEZ Order Number: [id number] Reading MD: Tucker Nagy Measurements Intervals [place] Rate: 113 P: 64 NE: 122 QRS: 59 QRSD: 79 T: 33 QT: 303 QTc: 416 Interpretive Statements Sinus tachycardia Borderline repolarization abnormality Electronically Signed On 08-23-2024 19:21:50 PDT by Tucker Nagy Please click the below link to view image of tracing.
== END 2024-08-22 20:29 | disposition left against medical advice (07) ==
LOC: EDBD 17:56 → ER 18:10
DX: R07.89 Other chest pain (principal); R00.2 Palpitations; R00.0 Tachycardia, unspecified; F41.9 Anxiety disorder, unspecified; K21.9 Gastro-esophageal reflux disease without esophagitis; Z79.899 Other long term (current) drug therapy
CPT/HCPCS: 36415; 84484; 93005

== ENCOUNTER 2024-09-02 20:41 | Inpatient (IN) | payer MEDICAID ==
[~2024-09-02] VITALS: Ht 177.8 cm; Wt 71.8 kg
[~2024-09-02 20:41] MED LIST changes: -PROP1TAB53 PO; -SERT25TA28 PO
--- NOTE | 2024-09-02 20:59 | ED.PDOC ---
HPI Comments 18 y/o M, with a history of anxiety, presents with c/o chest and back pain, palpitations, shortness of breath, dizziness, nausea, and vomiting, today. Patient endorses on additional onset of 12/18, generalized sternal and left-chest wall and upper back pain and shortness of breath, with nausea and vomiting, following recent hospital admission discharge from [facility] ([facility] earlier, today. He states on admission being for 1x day after being evaluated for palpitations and dizziness onset, yesterday, with no significant findings made during said admission. Patient reports on having chest pain, intermittently, for the past 1.5x months and is, currently, being evaluated through outpatient cardiology by bottle booth attendant "Dr. Thorne" via Holter monitor that was placed on 08/29/24. Patient reports no further relevant or pertinent information, such as any additional significant medical, surgical, or family history of cardiac diseases or recent stressors, travel, or strenuous activities. He denies any fever, chills, cough, congestion, or other additional associated symptoms or modifiers at this time. Chief Complaint: Palpitations Time Seen by MD: 20:43 Reviewed Notes: Nurses Notes, Medications, Allergies Allergies: Coded Allergies: NO KNOWN ALLERGIES (Unverified , 07/28/24) Home Meds Active Scripts Diltiazem Hcl (Cardizem La) 120 Mg Tab, 120 MG PO DAILY for 30 Days, #30 TAB Prov:MONROE LEON ASSISTANT PROFESSOR OF DIETETICS 08/22/24 Hydroxyzine Hcl (Hydroxyzine Hcl) 25 Mg Tab, 25 MG PO DAILY PRN for 30 Days, #30 TAB Prov:MONROE LEON ASSISTANT PROFESSOR OF DIETETICS 07/30/24 Sertraline HCl (Sertraline HCl) 50 Mg Tab, 50 MG PO DAILY for 21 Days, #21 TAB Give after 1st week of 25 mg p.o. daily Prov:MONROE LEON ASSISTANT PROFESSOR OF DIETETICS 07/30/24 Information Source: Patient Mode of Arrival: Ambulatory Severity: Moderate Timing: Months Duration: Intermittent Prehospital treatment: Other (see HPI) Past Medical History PAST MEDICAL HISTORY: Anxiety, GERD Surgical History: Denies all surgeries Family History Family History: Reviewed,noncontributory to illness Social History Smoker: Non-Smoker Alcohol: Denies ETOH Use Drugs: Denies Drug Use Lives In: Home Constitutional: denies: chills, diaphoresis, fatigue, fever, malaise, sweats, weakness, others EENTM: denies: blurred vision, double vision, ear bleeding, ear discharge, ear drainage, ear pain, ear ringing, eye pain, eye redness, hearing loss, mouth pain, mouth swelling, nasal discharge, nose bleeding, nose congestion, nose pain, photophobia, tearing, throat pain, throat swelling, voice changes, others Respiratory: reports: shortness of breath; denies: cough, hemoptysis, orthopnea, SOB at rest, SOB with excertion, stridor, wheezing, others Cardiovascular: reports: chest pain, palpitations; denies: dizzy spells, diaphoresis, Dyspnea on exertion, edema, irregular heart beat, left arm pain, lightheadedness, PND, syncope, others Gastrointestinal: reports: nausea, vomiting; denies: abdomen distended, abdominal pain, blood streaked bowels, constipated, diarrhea, dysphagia, difficulty swallowing, hematemesis, melena, poor appetite, poor fluid intake, rectal bleeding, rectal pain, others Genitourinary: denies: burning, dysuria, flank pain, frequency, hematuria, incontinence, penile discharge, penile sore, pain, testicle pain, testicle swelling, urgency, others Neurological: reports: dizziness; denies: fainting, headache, left sided numbness, left sided weakness, numbness, paresthesia, pre-existing deficit, right sided numbness, right sided weakness, seizure, speech problems, tingling, tremors, weakness, others Musculoskeletal: reports: back pain; denies: gout, joint pain, joint swelling, muscle pain, muscle stiffness, neck pain, others Integumetry: denies: bruises, change in color, change in hair/nails, dryness, laceration, lesions, lumps, rash, wounds, others Allergic/Immunocompromised: denies: Difficulty Healing, Frequent Infections, Hives, Itching, others Hematologic/Lymphatic: denies: anemia, blood clots, easy bleeding, easy bruising, swollen glands, others Endocrine: denies: excessive hunger, excessive sweating, excessive thirst, excessive urination, flushing, intolerance to cold, intolerance to heat, unexplained weight gain, unexplained weight loss, others Psychiatric: denies: anxiety, bipolar disorder, depression, hopeless, panic disorder, schizophrenia, sleepless, suicidal, others All Other Systems: Reviewed and Negative Physical Exam General Appearance: Mild Distress, Normal HEENT: Normal ENT Inspection, Pharynx Normal, TMs Normal Neck: Full Range of Motion, Non-Tender, Normal, Normal Inspection Respiratory: Lungs Clear, No Accessory Muscle Use, No Respiratory Distress, Normal Breath Sounds Cardiovascular: No Edema, No JVD, No Murmur, No Gallop, Normal Peripheral Pulses, Regular Rate/Rhythm Breast Exam: Deferred Gastrointestinal: No Organomegaly, Non Tender, No Pulsatile Mass, Normal Bowel Sounds, Soft Genitalia: Deferred Pelvic: Deferred Rectal: Deferred Extremities: No calf tenderness, Normal capillary refill, Normal inspection, Normal range of motion, Non-tender, No pedal edema Musculoskeletal : Extremity Location: Back (mild tenderness to palpation to upper back ), Chest (mild tenderness to palpation to chest wall ) Apperance: Normal, Tenderness Neurologic: Alert, stock receiver II-XII nml as Tested, No Motor Deficits, Normal Affect, Normal Mood, No Sensory Deficits Cerebellar Function: Normal Reflexes: Normal Skin: Dry, Normal Color, Warm Lymphatic: No Adenopathy EKG EKG : Pulse Rate (adult): 118 [place]: Normal Cardiac Rhythm: ST Block: None Hypertrophy: None ST: Nonsp Comments Repeat EKG showed normal sinus rhythm at 88 beats per minute. Was a procedure done? Was a procedure done?: No CP Differential Dx Differential Diagnosis: A-fib, Angina, Anxiety / Panic Attack, AV Block 1st Degree, AV Block 2nd Degree, AV Block 3rd Degree, Electrolyte Disorder, Heart Failure, IL, Sinus Tachycardia, WPW Differential Diagnosis: Angina, Chest Wall Pain, Cholelithiasis, Costochondritis, Esophageal reflux/spasm, Gastritis, Myocardial Infarction, Pericarditis, Pneumonia, Pneumothorax, Pulmonary Embolus X-Ray, Labs, Meds, VS Vital Signs Date Time Temp Pulse Resp B/P (MAP) Pulse Ox O2 Delivery O2 Flow Rate FiO2 09/03/24 00:00 89 20 114/64 (81) 96 09/02/24 21:57 80 16 107/67 (80) 97 09/02/24 21:57 80 16 97 Room Air* 0 21 09/02/24 21:48 88 09/02/24 21:17 118 09/02/24 20:46 118 09/02/24 20:46 97.9 130 20 138/95 (109) 95 97.9 Lab Test 09/02/24 22:07 09/02/24 21:07 Range/Units Troponin I High Sensitivity 6 7 </=54 ng/L White Blood Count 8.4 4.4-10.8 10^3/uL Red Blood Count 4.82 4.5-5.90 10^6/uL Hemoglobin 14.4 13.5-17.5 g/dL Hematocrit 41.9 41.0-53.0 % Mean Corpuscular Volume 86.8 80.0-100.0 fL Mean Corpuscular Hemoglobin 29.9 28.0-32.0 pg Mean Corpuscular Hemoglobin Concent 34.4 32.0-36.0 g/dL Red Cell Distribution Width 15.5 H 11.8-14.3 % Platelet Count 268 140-450 10^3/uL Mean Platelet Volume 10.6 6.9-10.8 fL Neutrophils (%) (Auto) 49.5 37.0-80.0 % Lymphocytes (%) (Auto) 37.4 10.0-50.0 % Monocytes (%) (Auto) 8.7 0.0-12.0 % Eosinophils (%) (Auto) 3.4 0.0-7.0 % Basophils (%) (Auto) 1.0 0.0-2.0 % Neutrophils # (Auto) 4.2 1.6-8.6 10 ^3/uL Lymphocytes # (Auto) 3.1 0.4-5.4 10 ^3/uL Monocytes # (Auto) 0.7 0-1.3 10 ^3/uL Eosinophils # (Auto) 0.3 0-0.8 10 ^3/uL Basophils # (Auto) 0.1 0-0.2 10 ^3/uL Nucleated Red Blood Cells 0.1 % D-Dimer, Quantitative < 0.19 0.0-0.49 mg/L FEU Sodium Level 139 136-145 mmol/L Potassium Level 3.2 L 3.5-5.1 mmol/L Chloride Level 107 98-107 mmol/L Carbon Dioxide Level 16 L 20-31 mmol/L Anion Gap 16 H 5-15 Blood Urea Nitrogen 7 L 9-23 mg/dL Creatinine 0.94 0.700-1.30 mg/dL Glomerular Filtration Rate Calc 119 >90 mL/min BUN/Creatinine Ratio 7.4 L 10.0-20.0 Serum Glucose 102 74-106 mg/dL Calcium Level 10.4 8.7-10.4 mg/dL Total Bilirubin 0.6 0.2-1.0 mg/dL Aspartate Amino Transferase (AST) 24 13-40 U/L Alanine Aminotransferase (ALT) 98 H 7-40 U/L Alkaline Phosphatase 101 46-116 U/L B-Type Natriuretic Peptide 0.63 0-100 pg/mL Total Protein 7.9 5.7-8.2 g/dL Albumin 5.0 H 3.2-4.8 g/dL Thyroid Stimulating Hormone (TSH) 4.17 0.55-4.78 uIU/mL Free Thyroxine (T4) Calculated 1.78 H 0.89-1.76 ng/dL Free Triiodothyronine (T3) pg/mL 3.95 2.3-4.2 pg/mL Current Medications Medications (Trade) Dose Ordered Sig/Temo Route Start Time Stop Time Status Last Admin Ondansetron HCl (Zofran) 4 mg ONCE ONCE IV 09/02/24 21:00 09/02/24 21:02 DC 09/02/24 21:55 Sodium Chloride 1,000 ml @ 1,000 mls/hr Q1H ONCE IV 09/02/24 21:30 09/02/24 22:29 DC 09/02/24 21:46 Potassium Chloride (Klor-Con Tablet) 40 meq ONCE ONCE PO 09/02/24 22:30 09/02/24 22:35 DC 09/02/24 22:44 X-Ray, Labs, Meds, VS Comment CXR IMPRESSION: No abnormality demonstrated. MDM: Patient with history as above presented with Chest pain and palpitations. History obtained from patient. Patient was nontoxic, stable, afebrile, ambulatory, mild distress. Exam as above. Labs reviewed. CBC was unremarkable. No leukocytosis. No anemia. D-dimer was negative. CMP showed mild hypokalemia at 3.2. Otherwise no significant electrolyte abnormalities. Troponin x2 were negative. BNP within normal limits.. Independently reviewed imaging. Chest x- ray did not show acute cardiopulmonary disease. Reviewed external records. All findings were discussed with the patient. Differential diagnosis considered. Overall presentation is consistent with nonspecific chest pain with palpitations. Low suspicion for ACS, pneumonia, aortic dissection, pulmonary embolism. Patient was treated with IV fluids and Toradol with improvement in symptoms. The patient will be admitted to the hospital for Cardiology evaluation due to continued intermittent chest pain and intermittent spikes of heart rate. Patient is currently on Holter monitor, however has not followed up with bottle booth attendant. Mother also reports that the patient's symptoms started after he had influenza in May and COVID in June. Therefore patient needs to be evaluated for pericarditis versus myocarditis. Cardiology consult has been placed. Disposition: Admit This medical document was created using the [employer] dictation system. Although this document has been carefully reviewed, there may still be some phonetic and typographical errors, which are due to imperfections of the software program, and do not reflect any compromise in the patient's medical care. Time of 1ST Reevaluation: 21:13 Reevaluation 1ST: Unchanged Time of 2ND Reevaluation: 03:46 Reevaluation 2ND: Improved Patient Education/Counseling: Diagnosis, Treatment Family Education/Counseling: No Family Present Additional Information Previous visit documents reviewed: August 22, 2024 encounter for chest pain The following tests were ordered, and results were reviewed by me: CXR, troponin, D-dime, BNP, CMP, CBC, EKG Additional Information was gathered from interviewing the following independent historians: n/a I reviewed and agreed with the following test results read by other providers: CXR I discussed treatment and results with medical personnel and: Patient Departure 1 Departure Time of Disposition: 03:46 Impression: Primary Impression: Palpitations Additional Impressions: Sinus tachycardia Chest pain Qualified Codes: R07.9 - Chest pain, unspecified Disposition: 09 ADMITTED INPATIENT Condition: Fair Critical Care Note Critical Care Time?: No Stability Stability form required: No Heart Score Heart Score: Heart Score Response (Comments) Value History Slightly Suspicious 0 EKG Normal 0 Age <45 0 Risk Factors No known risk factors 0 Troponin Normal limit 0 Total 0 I personally scribed for KAMILLE SALTER ([email or web address]) on 09/02/24 at 21:17. Electronically submitted by Dane Thompson ([email or web address]). KAMILLE SALTER Sep 02, 2024 20:59
[2024-09-02 21:17] LABS: Basophils # (auto) 0.1 10 ^3/uL (0-0.2); Eosinophils # (auto) 0.3 10 ^3/uL (0-0.8); Eosinophils % (auto) 3.4 % (0.0-7.0); Hematocrit 41.9 % (41.0-53.0); Hemoglobin 14.4 g/dL (13.5-17.5); Lymphocytes # (auto) 3.1 10 ^3/uL (0.4-5.4); Lymphocytes % (auto) 37.4 % (10.0-50.0); Mean Corpuscular Hemoglobin 29.9 pg (28.0-32.0); Mean Corpuscular Hgb Conc. 34.4 g/dL (32.0-36.0); Mean Corpuscular Volume 86.8 fL (80.0-100.0); Monocytes # (auto) 0.7 10 ^3/uL (0-1.3); Monocytes % (auto) 8.7 % (0.0-12.0); Neutrophils # (auto) 4.2 10 ^3/uL (1.6-8.6); Neutrophils % (auto) 49.5 % (37.0-80.0); Nucleated Red Blood Cells % 0.1 %; Platelet Count (auto) 268 10^3/uL (140-450); Red Blood Cells 4.82 10^6/uL (4.5-5.90); Red Cell Distribution Width 15.5 % (11.8-14.3); White Blood Cell 8.4 10^3/uL (4.4-10.8)
[2024-09-02 21:38] LABS: Alkaline Phosphatase 101 U/L (46-116); Anion Gap 16 (5-15); Aspartate Aminotransferase 24 U/L (13-40); BUN/Creatinine Ratio 7.4 (10.0-20.0); Calcium 10.4 mg/dL (8.7-10.4); Glucose 102 mg/dL (74-106); Sodium 139 mmol/L (136-145); Total Protein 7.9 g/dL (5.7-8.2)
[2024-09-02 21:39] LABS: Bilirubin, Total 0.6 mg/dL (0.2-1.0)
[2024-09-02 21:41] LABS: Free T3 3.95 pg/mL (2.3-4.2)
[2024-09-02 21:42] LABS: Free T4 (Free Thyroxine) 1.78 ng/dL (0.89-1.76)
[2024-09-02] MEDS: SODIUM CHLORIDE 0.9% 1,000 ML IV ONE (21:46)
[2024-09-02] MEDS: MORPHINE SULFATE 4 MG/ML SYR/VIAL IV ONE (21:55)
[2024-09-02] MEDS: ONDANSETRON HCL 4 MG/2 ML VIAL IV ONE (21:55)
[2024-09-02 21:57] VITALS: PULSE 80; RESP 16; O2SAT 97
[2024-09-02 22:02] LABS: Alanine Aminotransferase 98 U/L (7-40); Blood Urea Nitrogen 7 mg/dL (9-23); Carbon Dioxide 16 mmol/L (20-31); Chloride 107 mmol/L (98-107); Potassium 3.2 mmol/L (3.5-5.1)
[2024-09-02] MEDS: POTASSIUM CHL 20 Meq TABLET PO ONE (22:44)
--- NOTE | 2024-09-02 23:56 | DVH ---
CHEST RADIOGRAPH Indication: Chest pain Technique: Single frontal view of the chest was obtained COMPARISON: XY CHEST XRAY 1 VIEW on DOS: 08/19/24, XY CHEST PORTABLE on DOS: 07/31/24, XY CHEST PORTABL E on DOS: 07/28/24 FINDINGS: Lines and Tubes: None. Cardiac monitoring device noted. Lungs: Clear Pleura: No effusion. No pneumothorax. Cardiomediastinal contours: Unremarkable Bones: Unremarkable IMPRESSION: No abnormality demonstrated.
[2024-09-03] MEDS: SODIUM CHLORIDE 0.9% 1,000 ML IV ONE (01:20)
[2024-09-03] MEDS: KETOROLAC TROMETH 30 MG/ML 1ML VIAL ONE (01:56)
[2024-09-03] MEDS: KETOROLAC TROMETH 30 MG/ML 1ML VIAL IV ONE (02:05)
[2024-09-03] MEDS ORDERED: ONDANSETRON HCL 4 MG/2 ML VIAL IV PRN (05:15)
[2024-09-03] MEDS ORDERED: MORPHINE SULFATE INJ 2 MG/ml SYRG IV PRN (05:15)
[2024-09-03] MEDS ORDERED: HYDROcodone-ACET 5/325MG TAB PO PRN (05:15)
--- NOTE | 2024-09-03 05:53 | DVHHPRES ---
History of Present Illness Resident Creating Document: GUDELIA MCKEON RESDIENT History of Present Illness This is a 18-year-old male with past medical history of anxiety came to the hospital due to chest pain and tachycardia. He also reports palpitation, shortness of breath, dizziness, nausea, and vomiting. Patient was admitted at [facility] on 08/20/2024 due to same symptoms, evaluated by sales advisor (Dr. Thorne) and attributed his chest discomfort to noncardiac etiology. He was also evaluated by telepsych (Dr. Juan vaca), recommended sertraline 50 mg daily, trazodone p.r.n. for sleep and recommended to follow up with Psychiatry on outpatient basis, but the patient still have not seen. Previously (on 08/18/2024) he was put on Holter monitoring (by Dr. Thorne) and was supposed to be interpreted on 09/03/2024, but the patient missed the visit. He was again put on Holter monitor by another sales advisor (Dr. Finch on 08/29/2024) and still has been on Holter. 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 Lives with the family at home Home medication: Sertraline and trazodone Allergic history: No known allergy Review of Systems Review of Systems General: patient denies fever, fatigue, weaknes, sweating, any recent changes in appetite and weight HEENT: No headaches, visiual changes, hearing loss, tinnitus, nasal congestion and discharge, and sore throat. Cardiovascular: Reports chest pain and palpitation Respiratory: Reports shortness of breath Gastrointestinal: Reports nausea and vomiting Genitourinary: No dysuria, hematuria, discharge, frequency, urgency, nocturia, incontinence, and urinary retention. Endocrine: No heat or cold intolerance, polydipsia, polyuria, and polyphagia. Neurological: No dizziness, extremity weakness and numbness, tremors, gait disturbance, seizures, and memory impairment. Psychiatric: Denies depression, anxiety,or insomnia. Musculoskeletal: Denies neck pain, stiffness and swelling, back pain, muscle weakness, joint pain, stiffness, swelling, or limited range of motion. Skin: No rashes, itching, skin lesion, changes in hair, nail, skin texture and breast. Hematologic/Lymphatic: Denies easy bruising, bleeding tendencies, or lymph node enlargement. Allergies: Coded Allergies: NO KNOWN ALLERGIES (Unverified , 07/28/24) Medications Current Medications Medications Dose Ordered Sig/Temo Route Start Time Stop Time Status Last Admin Dose Admin Acetaminophen 650 mg Q6HP PRN PO 09/03/24 05:15 Acetaminophen/ Hydrocodone Bitart 1 tab Q4HP PRN PO 09/03/24 05:15 Ondansetron HCl 4 mg Q4HP PRN IV 09/03/24 05:15 Morphine Sulfate 2 mg Q4HPRN PRN IV 09/03/24 05:15 Sertraline HCl 50 mg DAILY PO 09/04/24 10:00 Trazodone HCl 50 mg HS PO 09/03/24 22:00 Pantoprazole Sodium 40 mg DAILY IV 09/04/24 10:00 Exam Vital Signs Vital Signs Date Time Temp Pulse Resp B/P (MAP) Pulse Ox O2 Delivery O2 Flow Rate FiO2 09/03/24 00:00 89 20 114/64 (81) 96 09/02/24 21:57 Room Air* 0 21 09/02/24 20:46 97.9 97.9 Exam General Appearance: Alert, Oriented X3, Cooperative, No acute distress HEENT: Atraumatic, PERRLA, EOMI, Mucous membrane moist/pink Respiratory: Clear to auscultation, Normal air movement Cardiovascular: Regular rate, Normal S1, Normal S2, No murmurs, no chest wall tenderness Abdominal: Epigastric abdominal tenderness Extremities: No clubbing, No cyanosis, No edema, Normal pulses, No tenderness/swelling Skin: No rashes, No breakdown, No significant lesion Neuro: Normal gait, Normal speech, Strength at 5/5 X4 ext, Normal tone, Sensation intact, Cranial nerves 3-12 NL, Reflexes 2+ Psych/Mental Status: Mental status NL, Mood NL Labs/Xrays Labs Test 09/02/24 22:07 09/02/24 21:07 Range/Units Troponin I High Sensitivity 6 </=54 ng/L White Blood Count 8.4 4.4-10.8 10^3/uL Red Blood Count 4.82 4.5-5.90 10^6/uL Hemoglobin 14.4 13.5-17.5 g/dL Hematocrit 41.9 41.0-53.0 % Mean Corpuscular Volume 86.8 80.0-100.0 fL Mean Corpuscular Hemoglobin 29.9 28.0-32.0 pg Mean Corpuscular Hemoglobin Concent 34.4 32.0-36.0 g/dL Red Cell Distribution Width 15.5 H 11.8-14.3 % Platelet Count 268 140-450 10^3/uL Mean Platelet Volume 10.6 6.9-10.8 fL Neutrophils (%) (Auto) 49.5 37.0-80.0 % Lymphocytes (%) (Auto) 37.4 10.0-50.0 % Monocytes (%) (Auto) 8.7 0.0-12.0 % Eosinophils (%) (Auto) 3.4 0.0-7.0 % Basophils (%) (Auto) 1.0 0.0-2.0 % Neutrophils # (Auto) 4.2 1.6-8.6 10 ^3/uL Lymphocytes # (Auto) 3.1 0.4-5.4 10 ^3/uL Monocytes # (Auto) 0.7 0-1.3 10 ^3/uL Eosinophils # (Auto) 0.3 0-0.8 10 ^3/uL Basophils # (Auto) 0.1 0-0.2 10 ^3/uL Nucleated Red Blood Cells 0.1 % D-Dimer, Quantitative < 0.19 0.0-0.49 mg/L FEU Sodium Level 139 136-145 mmol/L Potassium Level 3.2 L 3.5-5.1 mmol/L Chloride Level 107 98-107 mmol/L Carbon Dioxide Level 16 L 20-31 mmol/L Anion Gap 16 H 5-15 Blood Urea Nitrogen 7 L 9-23 mg/dL Creatinine 0.94 0.700-1.30 mg/dL Glomerular Filtration Rate Calc 119 >90 mL/min BUN/Creatinine Ratio 7.4 L 10.0-20.0 Serum Glucose 102 74-106 mg/dL Calcium Level 10.4 8.7-10.4 mg/dL Total Bilirubin 0.6 0.2-1.0 mg/dL Aspartate Amino Transferase (AST) 24 13-40 U/L Alanine Aminotransferase (ALT) 98 H 7-40 U/L Alkaline Phosphatase 101 46-116 U/L B-Type Natriuretic Peptide 0.63 0-100 pg/mL Total Protein 7.9 5.7-8.2 g/dL Albumin 5.0 H 3.2-4.8 g/dL Thyroid Stimulating Hormone (TSH) 4.17 0.55-4.78 uIU/mL Free Thyroxine (T4) Calculated 1.78 H 0.89-1.76 ng/dL Free Triiodothyronine (T3) pg/mL 3.95 2.3-4.2 pg/mL Assessment/Plan Assessment/Plan Chest pain,? ACS History of anxiety EKGs shows normal sinus rhythm, serial troponin is within normal Echo from July 29, 2024 shows normal study Protonix Zofran Kinzers Continue sertraline and trazodone Hypokalemia, repleted Transaminitis DIET: Regular DISPOSITION: Telemetry Patient's status and paln discussed with the patient and the patient's mother at the bedside. Case discussed with Dr. Kinney. Plan discussed with: Patient, Other (RN) My Orders Orders - GUDELIA MCKEON RESLEESA Procedure Category Date Status Time Admit ADMIT 09/03/24 Transmitted 05:04 Code Status CODE 09/03/24 Transmitted 05:04 Vital Signs [facility] 09/03/24 In Process 05:04 Review Orders With [facility] 09/03/24 In Process Adm. 05:04 Acetaminophen Tablet PHA 09/03/24 In Process (Tylenol Tablet) 05:15 Notify Of Changes [facility] 09/03/24 In Process From Base 05:04 Advance Directive [facility] 09/03/24 In Process 05:04 Patient Condition ORDERS 09/03/24 Transmitted 05:04 Allergies [facility] 09/03/24 In Process 05:04 Hydrocodone-Acet PHA 09/03/24 In Process 5/325mg Tab ([place] 05:15 Ondansetron Hcl PHA 09/03/24 In Process (Zofran) 05:15 Morphine Sulfate PHA 09/03/24 In Process Injection 05:15 Stat Ekg For Chest [facility] 09/03/24 In Process Pain 05:04 Notify Of Changes [facility] 09/03/24 In Process From Base 05:04 Shared Services Representative For [facility] 09/03/24 In Process 24 Hours 05:04 Emergency Dysrhythmia [facility] 09/03/24 In Process Protocol 05:04 Rhythm Strips Once [facility] 09/03/24 In Process Every Shift 05:04 Trazodone Hcl PHA 09/03/24 In Process (Desyrel) 22:00 Pantoprazole PHA 09/04/24 In Process (Protonix) 10:00 Sertraline Hcl PHA 09/04/24 In Process (Zoloft) 10:00 Date of Service: Sep 03, 2024 Billing Provider: ERICKA KINNEY MD Common Visit Codes: 09799-RCKQTOM INP/OBS CARE (HIGH) GUDELIA MCKEON Sep 03, 2024 05:52 ERICKA KINNEY MD Sep 03, 2024 11:00
[2024-09-03] MEDS: SERTRALINE HCL 50 MG TAB PO ONE (06:11)
[2024-09-03] MEDS: PANTOPRAZOLE 40 MG/10 ML VIAL INJ IV ONE (06:12)
[2024-09-03] MEDS: POTASSIUM CHL 20MEQ/50ML 50 ML IV SCH (06:42)
--- NOTE | 2024-09-03 07:18 | ECG ---
[facility] Test Date: 2024-09-02 Test Time: 21:48:43 Pat Name: BO LEBLANC Department: ED Room: [address] [place] [address] A Gender: M Gill Tender: ED : 2005 Requested By: KAMILLE SALTER Order Number: [id number] Reading MD: Tucker Nagy Measurements Intervals [place] Rate: 88 P: 66 VT: 134 QRS: 75 QRSD: 82 T: 35 QT: 348 QTc: 421 Interpretive Statements Sinus rhythm Borderline Q waves in inferior leads Electronically Signed On 09-04-2024 14:05:46 PDT by Tucker Nagy Please click the below link to view image of tracing.
[2024-09-03] MEDS: ACETAMINOPHEN 325 MG TAB PO PRN (10:10)
[2024-09-03 11:09] LABS: Amphetamine Screen, Urine Neg (NEGATIVE); Barbiturate Scree,Urine Neg (NEGATIVE); Benzodiazephine Screen, Urine Neg (NEGATIVE); Cannabinoid Screen, Urine Neg (NEGATIVE); Cocaine Screen, Urine Neg (NEGATIVE); Opiate Scree,Urine Neg (NEGATIVE); Phencyclidine Screen, Urine Neg (NEGATIVE)
[2024-09-03 11:09] LABS: Potassium 4.2 mmol/L (3.5-5.1); Sodium 144 mmol/L (136-145)
[2024-09-03 11:10] LABS: Anion Gap 13 (5-15); Calcium 9.3 mg/dL (8.7-10.4)
[2024-09-03 11:15] LABS: BUN/Creatinine Ratio 8.8 (10.0-20.0); Glucose 92 mg/dL (74-106)
[2024-09-03 11:20] LABS: Blood Urea Nitrogen 7 mg/dL (9-23); Carbon Dioxide 19 mmol/L (20-31); Chloride 112 mmol/L (98-107)
--- NOTE | 2024-09-03 13:38 | DVHPN2 ---
Progress Note - Dictate Date Seen: Sep 03, 2024 Subjective PT WITH CHEST PAIN NEGATIVE TROPONIN NEGATIVE ECG RECENTLY ADMITTED FOR THE SAME AND EPIGASTRIC DISCOMFORT SINUS TACHYCARDIA SECONDARY TO PAIN TROPONIN NEGATIVE ECG NEGATIVE ECHO NL EF STARTED ON CARDIZEM vital signs Vital Sign Date Time Temp Pulse Resp B/P (MAP) Pulse Ox O2 Delivery O2 Flow Rate FiO2 09/03/24 12:07 97.2 91 12 120/70 (87) 98 97.2 09/02/24 21:57 Room Air* 0 21 Total Intake and Output 09/02/24 09/02/24 09/03/24 15:00 23:00 07:00 Intake Total 2000 ml Balance 2000 ml medications Current Medications Medications Dose Ordered Sig/Temo Route Start Time Stop Time Status Last Admin Dose Admin Acetaminophen 650 mg Q6HP PRN PO 09/03/24 05:15 09/03/24 10:10 650 MG Acetaminophen/ Hydrocodone Bitart 1 tab Q4HP PRN PO 09/03/24 05:15 Ondansetron HCl 4 mg Q4HP PRN IV 09/03/24 05:15 Morphine Sulfate 2 mg Q4HPRN PRN IV 09/03/24 05:15 Sertraline HCl 50 mg DAILY PO 09/04/24 10:00 Trazodone HCl 50 mg HS PO 09/03/24 22:00 Pantoprazole Sodium 40 mg DAILY IV 09/04/24 10:00 laboratory and microbiology Laboratory Tests 09/03/24 06:22 09/02/24 21:07 Test 09/03/24 06:22 Range/Units Serum Glucose 92 74-106 mg/dL Problem List CHEST PAIN NEGATIVE TROPONIN NEGATIVE ECG RECENTLY ADMITTED FOR THE SAME AND EPIGASTRIC DISCOMFORT SINUS TACHYCARDIA SECONDARY TO PAIN TROPONIN NEGATIVE ECG NEGATIVE ECHO NL EF STARTED ON CARDIZEM Assessment/Plan PT"S LABS CONSISTENT WITH ANXIETY DISORDER HYPERVENTILATION NON CARDIAC CHEST PAIN Plan discussed with: Patient Critical Care Time(min): 35 IAN NEUMANN MD Sep 03, 2024 13:38
[2024-09-03 14:07] VITALS: BP 118/47; PULSE 66; RESP 20; TEMP 97.4; O2SAT 98
[2024-09-03] MEDS ORDERED: PANT40TA2 PO (14:52)
--- NOTE | 2024-09-03 14:52 | DVHDSRES ---
Discharge Summary Date of Admission Resident Creating Document: MAME MALIK RESIDENT Sep 03, 2024 at 05:04 Date of Discharge: Sep 03, 2024 Admitting Diagnosis Chest pain rule out ACS Wounds: No wound was present Labs/Diagnostic Data: Laboratory Results Test 09/03/24 10:00 09/03/24 06:22 09/02/24 22:07 09/02/24 21:07 Urine Opiates Screen Neg (NEGATIVE) Urine Fentanyl Screen Neg (NEGATIVE) Urine Barbiturates Screen Neg (NEGATIVE) Urine Phencyclidine Screen Neg (NEGATIVE) Urine Amphetamines Screen Neg (NEGATIVE) Urine Benzodiazepines Screen Neg (NEGATIVE) Urine Cocaine Screen Neg (NEGATIVE) Urine Cannabinoids Screen Neg (NEGATIVE) Sodium Level 144 mmol/L (136-145) Potassium Level 4.2 mmol/L (3.5-5.1) Chloride Level 112 mmol/L (98-107) Carbon Dioxide Level 19 mmol/L (20-31) Anion Gap 13 (5-15) Blood Urea Nitrogen 7 mg/dL (9-23) Creatinine 0.80 mg/dL (0.700-1.30) Glomerular Filtration Rate Calc 130 mL/min (>90) BUN/Creatinine Ratio 8.8 (10.0-20.0) Serum Glucose 92 mg/dL (74-106) Calcium Level 9.3 mg/dL (8.7-10.4) Magnesium Level 1.9 mg/dL (1.6-2.6) Troponin I High Sensitivity 6 ng/L (</=54) White Blood Count 8.4 10^3/uL (4.4-10.8) Red Blood Count 4.82 10^6/uL (4.5-5.90) Hemoglobin 14.4 g/dL (13.5-17.5) Hematocrit 41.9 % (41.0-53.0) Mean Corpuscular Volume 86.8 fL (80.0-100.0) Mean Corpuscular Hemoglobin 29.9 pg (28.0-32.0) Mean Corpuscular Hemoglobin Concent 34.4 g/dL (32.0-36.0) Red Cell Distribution Width 15.5 % (11.8-14.3) Platelet Count 268 10^3/uL (140-450) Mean Platelet Volume 10.6 fL (6.9-10.8) Neutrophils (%) (Auto) 49.5 % (37.0-80.0) Lymphocytes (%) (Auto) 37.4 % (10.0-50.0) Monocytes (%) (Auto) 8.7 % (0.0-12.0) Eosinophils (%) (Auto) 3.4 % (0.0-7.0) Basophils (%) (Auto) 1.0 % (0.0-2.0) Neutrophils # (Auto) 4.2 10 ^3/uL (1.6-8.6) Lymphocytes # (Auto) 3.1 10 ^3/uL (0.4-5.4) Monocytes # (Auto) 0.7 10 ^3/uL (0-1.3) Eosinophils # (Auto) 0.3 10 ^3/uL (0-0.8) Basophils # (Auto) 0.1 10 ^3/uL (0-0.2) Nucleated Red Blood Cells 0.1 % D-Dimer, Quantitative < 0.19 mg/L FEU (0.0-0.49) Total Bilirubin 0.6 mg/dL (0.2-1.0) Aspartate Amino Transferase (AST) 24 U/L (13-40) Alanine Aminotransferase (ALT) 98 U/L (7-40) Alkaline Phosphatase 101 U/L (46-116) B-Type Natriuretic Peptide 0.63 pg/mL (0-100) Total Protein 7.9 g/dL (5.7-8.2) Albumin 5.0 g/dL (3.2-4.8) Thyroid Stimulating Hormone (TSH) 4.17 uIU/mL (0.55-4.78) Free Thyroxine (T4) Calculated 1.78 ng/dL (0.89-1.76) Free Triiodothyronine (T3) pg/mL 3.95 pg/mL (2.3-4.2) Other Laboratory Tests 09/03/24 06:22 09/02/24 21:07 Brief Hx & Hospital Course: This is a 18-year-old male with past medical history of anxiety came to the hospital due to chest pain and tachycardia. He also reports palpitation, shortness of breath, dizziness, nausea, and vomiting. Patient was admitted at [facility] on 08/20/2024 due to same symptoms, evaluated by health and safety instructor (Dr. Thorne) and attributed his chest discomfort to noncardiac etiology. He was also evaluated by telepsych (Dr. Juan vaca), recommended sertraline 50 mg daily, trazodone p.r.n. for sleep and recommended to follow up with Psychiatry on outpatient basis, but the patient still have not seen. Previously (on 08/18/2024) he was put on Holter monitoring (by Dr. Thorne) and was supposed to be interpreted on 09/03/2024, but the patient missed the visit. He was again put on Holter monitor by another health and safety instructor (Dr. Finch on 08/29/2024) and still has been on Holter. Hospital course: Initial EKGs shows normal sinus rhythm, serial troponin is within normal and Echo from July, revealed EF 60%, normal RV function and no severe valve abnormalities noted. Field Case Manager Dr. Thorne evaluated the patient and mentioned noncardiac chest pain, hyperventilation and patient's lab consistent with anxiety disorder. Patient was treated with resumed home medications sertraline 50 mg daily, Protonix 40 mg daily IV, IV morphine 2 mg q.4 p.r.n., IV ondansetron 4 mg q.4 p.r.n., acetaminophen 650 mg q.6 p.r.n. Discharge plan was discussed with the patient and all questions were answered. Patient is being discharged to home with Protonix 40 mg p.o. daily for 2 weeks and advised to continue home medications. He was also advised to follow up with [facility] in 1 week. Physical examination: General Appearance: Alert, Oriented X3, Cooperative, No acute distress HEENT: Atraumatic, PERRLA, EOMI, Mucous membrane moist/pink Respiratory: Clear to auscultation, Normal air movement Cardiovascular: Regular rate, Normal S1, Normal S2, No murmurs, no chest wall tenderness Abdominal: Normal bowel sounds, Soft, No tenderness, No hepatospenomegaly, No masses Extremities: No clubbing, No cyanosis, No edema, Normal pulses, No tenderness/swelling Skin: No rashes, No breakdown, No significant lesion Neuro: Normal gait, Normal speech, Strength at 5/5 X4 ext, Normal tone, Sensation intact, Cranial nerves 3-12 NL, Reflexes 2+ Psych/Mental Status: Mental status NL, Mood NL Consults/Reason for consult Cardiology was consulted Operations or Procedures CHEST RADIOGRAPH Indication: Chest pain Technique: Single frontal view of the chest was obtained COMPARISON: XY CHEST XRAY 1 VIEW on DOS: 08/19/24, XY CHEST PORTABLE on DOS: 07/31/24, XY CHEST PORTABLE on DOS: 07/28/24 FINDINGS: Lines and Tubes: None. Cardiac monitoring device noted. Lungs: Clear Pleura: No effusion. No pneumothorax. Cardiomediastinal contours: Unremarkable Bones: Unremarkable IMPRESSION: No abnormality demonstrated. Condition at Discharge: Stable Final Diagnosis/Problems List Acute chest pain ruled out ACS Possible noncardiac chest pain History of anxiety Hypokalemia Transaminitis Discharge Disposition: Home Discharge Instruct/Medications Diet: Regular Activity: No Restrictions, As Tolerated Follow Up/Referral: Follow up with [facility] in 1 week. Medications: Continue home medications. Discharge Statement: "Patient was advised to return to the ER or call 911 if any headaches, dizziness, shortness of breath, chest pain, abdominal pain, bleeding, fevers, or worsening of medical condition. Patient was counseled about treatment plan, medications, possible side effects, patientverbalized understanding. All questions were answered to the best of my ability. This discharge took greater then 30 minutes in planning, reviewing documentation, counseling the patient, and discussing with other team members." ASSESSMENT ASSESSMENT Assessment Acute chest pain ruled out ACS Possible noncardiac chest pain History of anxiety Hypokalemia Transaminitis MAME MALIK RESIDENT Sep 03, 2024 14:52
[2024-09-03] MEDS ORDERED: traZODone HCL 50 MG TAB PO SCH (22:00)
--- NOTE | 2024-09-04 09:08 | ECG ---
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
[2024-09-04] MEDS ORDERED: PANTOPRAZOLE 40 MG/10 ML VIAL INJ IV SCH (10:00)
[2024-09-04] MEDS ORDERED: SERTRALINE HCL 50 MG TAB PO SCH (10:00)
== END 2024-09-03 16:04 | disposition left against medical advice (07) | DRG 203 ==
LOC: ER 20:41 → OVERFLOW 09-03 05:04
PROVIDERS: ADMIT Student in an Organized Health Care Education/Training Program; ATTEND Internal Medicine
DX: R07.89 Other chest pain (principal); E87.6 Hypokalemia; F41.9 Anxiety disorder, unspecified; R74.01 Elevation of levels of liver transaminase levels; Z53.29 Procedure and treatment not carried out because of patient's decision for other reasons; K21.9 Gastro-esophageal reflux disease without esophagitis; M54.9 Dorsalgia, unspecified; R00.0 Tachycardia, unspecified; R06.4 Hyperventilation; Z79.891 Long term (current) use of opiate analgesic; Z79.899 Other long term (current) drug therapy
CPT/HCPCS: 36415; 71045; 80048; 80053; 80307; 83735; 83880; 84439; 84443; 84481; 84484; 85025; 85379; 93005; 96361; 96374; G0378; J1885; J2405

== ENCOUNTER 2024-09-08 17:32 | Emergency (ER) | payer MEDICAID ==
[~2024-09-08] VITALS: Ht 157.5 cm; Wt 64.0 kg
[~2024-09-08 17:32] MED LIST changes: -HYDR-3682 PO; +PANT40TA2 PO
[2024-09-08 17:38] VITALS: BP 152/88; PULSE 110; RESP 18; TEMP 98.4; O2SAT 99
--- NOTE | 2024-09-08 18:16 | ECG ---
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
== END 2024-09-08 18:38 | disposition left against medical advice (07) ==
LOC: ER 17:32 → EDBD 17:32 → ER 18:38
DX: R00.2 Palpitations (principal); Z53.21 Procedure and treatment not carried out due to patient leaving prior to being seen by health care provider
CPT/HCPCS: 93005

== ENCOUNTER 2024-09-11 01:26 | Emergency (ER) | payer MEDICAID ==
[~2024-09-11] VITALS: Ht 175.3 cm; Wt 72.6 kg
--- NOTE | 2024-09-11 01:44 | ED.PDOC ---
HPI Comments 18-year-old male with PMHx Anxiety brought in by EMS presents with a chief complaint of chest wall pain x 45 minutes. Patient has extensive history of chest pain complaints at this hospital and is known to be seen at [facility] and [facility], will be discharged from those facilities, then comes back to [facility] to be evaluated. Patient is also known to be noncompliant with his anxiety medications and not following up with his warehouse hand. Patient states that he was in [facility], but EMS reports that their 12- lead showed NSR with rate of 102. Patient mentions that his Apple Watch showed a HR of 140. Patient mentions that this chest wall pain woke him up from his sleep. Chief Complaint: Chest Pain Time Seen by MD: 01:34 Primary Care Provider: JOYCE Reviewed Notes: Medications, Allergies Allergies: Coded Allergies: NO KNOWN ALLERGIES (Unverified , 07/28/24) Home Meds Active Scripts Pantoprazole Sodium Sesquihydr (Protonix) 40 Mg Tab, 40 MG PO DAILY for 30 Days, #30 TAB Prov:MAME MALIK RESIDENT 09/03/24 Diltiazem Hcl (Cardizem La) 120 Mg Tab, 120 MG PO DAILY for 30 Days, #30 TAB Prov:MONROE LEON ACADEMIC SUPPORT COORDINATOR 08/22/24 Sertraline HCl (Sertraline HCl) 50 Mg Tab, 50 MG PO DAILY for 21 Days, #21 TAB Give after 1st week of 25 mg p.o. daily Prov:MONROE LEON ACADEMIC SUPPORT COORDINATOR 07/30/24 Information Source: Patient, Emergency Med Personnel Mode of Arrival: EMS Severity: Moderate Timing: Minutes Duration: Since onset Prehospital treatment: 12 Lead EKG Location: Substernal Radiation: No Radiation Quality: Other (CRAMPING) Onset: At Rest Cardiac Risk Factors: None PE Risk Factors: None History of: Similar pain in past Past Medical History PAST MEDICAL HISTORY: Anxiety, GERD Surgical History: Denies all surgeries Family History Family History: Reviewed,noncontributory to illness Social History Smoker: Non-Smoker Alcohol: Denies ETOH Use Drugs: Denies Drug Use Lives In: Home Constitutional: denies: chills, diaphoresis, fatigue, fever, malaise, sweats, weakness, others EENTM: denies: blurred vision, double vision, ear bleeding, ear discharge, ear drainage, ear pain, ear ringing, eye pain, eye redness, hearing loss, mouth pain, mouth swelling, nasal discharge, nose bleeding, nose congestion, nose pain, photophobia, tearing, throat pain, throat swelling, voice changes, others Respiratory: denies: cough, hemoptysis, orthopnea, SOB at rest, shortness of breath, SOB with excertion, stridor, wheezing, others Cardiovascular: reports: chest pain; denies: dizzy spells, diaphoresis, Dyspnea on exertion, edema, irregular heart beat, left arm pain, lightheadedness, palpitations, PND, syncope, others Gastrointestinal: denies: abdomen distended, abdominal pain, blood streaked bowels, constipated, diarrhea, dysphagia, difficulty swallowing, hematemesis, melena, nausea, poor appetite, poor fluid intake, rectal bleeding, rectal pain, vomiting, others Genitourinary: denies: burning, dysuria, flank pain, frequency, hematuria, incontinence, penile discharge, penile sore, pain, testicle pain, testicle swelling, urgency, others Neurological: denies: dizziness, fainting, headache, left sided numbness, left sided weakness, numbness, paresthesia, pre-existing deficit, right sided numbness, right sided weakness, seizure, speech problems, tingling, tremors, weakness, others Musculoskeletal: denies: back pain, gout, joint pain, joint swelling, muscle pain, muscle stiffness, neck pain, others Integumetry: denies: bruises, change in color, change in hair/nails, dryness, laceration, lesions, lumps, rash, wounds, others Allergic/Immunocompromised: denies: Difficulty Healing, Frequent Infections, Hives, Itching, others Hematologic/Lymphatic: denies: anemia, blood clots, easy bleeding, easy bruising, swollen glands, others Endocrine: denies: excessive hunger, excessive sweating, excessive thirst, excessive urination, flushing, intolerance to cold, intolerance to heat, unexplained weight gain, unexplained weight loss, others Psychiatric: denies: anxiety, bipolar disorder, depression, hopeless, panic disorder, schizophrenia, sleepless, suicidal, others All Other Systems: Reviewed and Negative Physical Exam General Appearance: No Apparent Distress, Normal HEENT: Normal ENT Inspection, Pharynx Normal, TMs Normal Neck: Full Range of Motion, Non-Tender, Normal, Normal Inspection Respiratory: Chest Non-Tender, Lungs Clear, No Accessory Muscle Use, No Respiratory Distress, Normal Breath Sounds Cardiovascular: No Edema, No JVD, No Murmur, No Gallop, Normal Peripheral Pulses, Regular Rate/Rhythm Breast Exam: Deferred Gastrointestinal: No Organomegaly, Non Tender, No Pulsatile Mass, Normal Bowel Sounds, Soft Genitalia: Deferred Pelvic: Deferred Rectal: Deferred Extremities: No calf tenderness, Normal capillary refill, Normal inspection, Normal range of motion, Non-tender, No pedal edema Musculoskeletal : Apperance: Normal Neurologic: Alert, pleating supervisor II-XII nml as Tested, No Motor Deficits, Normal Affect, Normal Mood, No Sensory Deficits Cerebellar Function: Normal Reflexes: Normal Skin: Dry, Normal Color, Warm Lymphatic: No Adenopathy Was a procedure done? Was a procedure done?: No CP Differential Dx Differential Diagnosis: A-Flutter, Atrial Dysrhythmia, Electrolyte Disorder, Pulmonary Embolus, V-Fib, V-Tach, Other X-Ray, Labs, Meds, VS Vital Signs Date Time Temp Pulse Resp B/P (MAP) Pulse Ox O2 Delivery O2 Flow Rate FiO2 09/11/24 02:19 82 18 98 Room Air* 0 21 09/11/24 02:19 98.9 97 16 115/51 (72) 99 98.9 09/11/24 01:34 97.6 107 18 127/103 (111) 98 97.6 09/11/24 01:32 82 Lab Test 09/11/24 01:55 Range/Units White Blood Count 7.3 4.4-10.8 10^3/uL Red Blood Count 4.24 L 4.5-5.90 10^6/uL Hemoglobin 12.7 L 13.5-17.5 g/dL Hematocrit 36.3 L 41.0-53.0 % Mean Corpuscular Volume 85.5 80.0-100.0 fL Mean Corpuscular Hemoglobin 29.9 28.0-32.0 pg Mean Corpuscular Hemoglobin Concent 35.0 32.0-36.0 g/dL Red Cell Distribution Width 15.6 H 11.8-14.3 % Platelet Count 252 140-450 10^3/uL Mean Platelet Volume 9.9 6.9-10.8 fL Neutrophils (%) (Auto) 49.6 37.0-80.0 % Lymphocytes (%) (Auto) 37.9 10.0-50.0 % Monocytes (%) (Auto) 9.1 0.0-12.0 % Eosinophils (%) (Auto) 2.6 0.0-7.0 % Basophils (%) (Auto) 0.8 0.0-2.0 % Neutrophils # (Auto) 3.6 1.6-8.6 10 ^3/uL Lymphocytes # (Auto) 2.8 0.4-5.4 10 ^3/uL Monocytes # (Auto) 0.7 0-1.3 10 ^3/uL Eosinophils # (Auto) 0.2 0-0.8 10 ^3/uL Basophils # (Auto) 0.1 0-0.2 10 ^3/uL Nucleated Red Blood Cells 0.1 % Sodium Level 140 136-145 mmol/L Potassium Level 3.3 L 3.5-5.1 mmol/L Chloride Level 110 H 98-107 mmol/L Carbon Dioxide Level 21 20-31 mmol/L Anion Gap 9 5-15 Blood Urea Nitrogen 5 L 9-23 mg/dL Creatinine 0.78 0.700-1.30 mg/dL Glomerular Filtration Rate Calc 131 >90 mL/min BUN/Creatinine Ratio 6.4 L 10.0-20.0 Serum Glucose 112 H 74-106 mg/dL Calcium Level 9.9 8.7-10.4 mg/dL Total Bilirubin 0.5 0.2-1.0 mg/dL Aspartate Amino Transferase (AST) 10 L 13-40 U/L Alanine Aminotransferase (ALT) 48 H 7-40 U/L Alkaline Phosphatase 91 46-116 U/L Troponin I High Sensitivity 7 </=54 ng/L Total Protein 7.4 5.7-8.2 g/dL Albumin 4.7 3.2-4.8 g/dL Current Medications Medications (Trade) Dose Ordered Sig/Temo Route Start Time Stop Time Status Last Admin Potassium Chloride (Klor-Con Tablet) 20 meq ONCE ONCE PO 09/11/24 02:45 09/11/24 02:46 DC 09/11/24 02:43 Time of 1ST Reevaluation: 02:04 Reevaluation 1ST: Unchanged Time of 2ND Reevaluation: 03:00 Reevaluation 2ND: Improved Patient Education/Counseling: Diagnosis, Treatment, Prognosis Family Education/Counseling: No Family Present Sepsis Sepsis Reasesment Focused Exam Sepsis focused exam: focus exam completed Departure 1 Departure Time of Disposition: 03:00 Impression: Primary Impression: Atypical chest pain Additional Impression: Palpitations Disposition: 01 HOME / SELF CARE / HOMELESS Condition: Stable Discharged With: Self Critical Care Note Critical Care Time?: No Stability Stability form required: No Heart Score Heart Score: Heart Score Response (Comments) Value History Slightly Suspicious 0 EKG Normal 0 Age <45 0 Risk Factors No known risk factors 0 Troponin Normal limit 0 Total 0 I personally scribed for CHRIS VÁZQUEZ MD ([email or web address]) on 09/11/24 at 01:44. Electronically submitted by Van Gutierrez ([email or web address]). CHRIS VÁZQUEZ MD Sep 11, 2024 01:44
--- NOTE | 2024-09-11 02:06 | DVH ---
EXAM: XY CHEST PORTABLE CLINICAL HISTORY: chest pain TECHNIQUE: Single AP view of the chest WID: COMPARISON: XY CHEST XRAY 1 VIEW on DOS: 09/02/24 FINDINGS: Lines and tubes: None Chest: The heart size and pulmonary vasculature is within normal limits. No pleural effusion, pneumothorax, or consolidation. The osseous structures are grossly intact. IMPRESSION: No acute cardiopulmonary abnormality.
[2024-09-11 02:10] LABS: Basophils # (auto) 0.1 10 ^3/uL (0-0.2); Basophils % (auto) 0.8 % (0.0-2.0); Eosinophils # (auto) 0.2 10 ^3/uL (0-0.8); Eosinophils % (auto) 2.6 % (0.0-7.0); Hematocrit 36.3 % (41.0-53.0); Hemoglobin 12.7 g/dL (13.5-17.5); Lymphocytes # (auto) 2.8 10 ^3/uL (0.4-5.4); Lymphocytes % (auto) 37.9 % (10.0-50.0); Mean Corpuscular Hemoglobin 29.9 pg (28.0-32.0); Mean Corpuscular Volume 85.5 fL (80.0-100.0); Monocytes # (auto) 0.7 10 ^3/uL (0-1.3); Monocytes % (auto) 9.1 % (0.0-12.0); Neutrophils # (auto) 3.6 10 ^3/uL (1.6-8.6); Neutrophils % (auto) 49.6 % (37.0-80.0); Nucleated Red Blood Cells % 0.1 %; Platelet Count (auto) 252 10^3/uL (140-450); Red Blood Cells 4.24 10^6/uL (4.5-5.90); Red Cell Distribution Width 15.6 % (11.8-14.3); White Blood Cell 7.3 10^3/uL (4.4-10.8)
[2024-09-11 02:19] VITALS: BP 115/51; PULSE 82; RESP 18; TEMP 98.9; O2SAT 98
[2024-09-11 02:20] LABS: Alanine Aminotransferase 48 U/L (7-40); Albumin 4.7 g/dL (3.2-4.8); Alkaline Phosphatase 91 U/L (46-116); Anion Gap 9 (5-15); Aspartate Aminotransferase 10 U/L (13-40); BUN/Creatinine Ratio 6.4 (10.0-20.0); Bilirubin, Total 0.5 mg/dL (0.2-1.0); Blood Urea Nitrogen 5 mg/dL (9-23); Calcium 9.9 mg/dL (8.7-10.4); Carbon Dioxide 21 mmol/L (20-31); Chloride 110 mmol/L (98-107); Glucose 112 mg/dL (74-106); Potassium 3.3 mmol/L (3.5-5.1); Sodium 140 mmol/L (136-145); Total Protein 7.4 g/dL (5.7-8.2)
[2024-09-11] MEDS: POTASSIUM CHL 20 Meq TABLET PO ONE (02:43)
--- NOTE | 2024-09-11 06:40 | ECG ---
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
== END 2024-09-11 02:55 | disposition home or self-care (01) ==
LOC: ER 01:26 → EDBD 01:26 → ER 02:55
DX: R07.89 Other chest pain (principal); R00.2 Palpitations; F41.9 Anxiety disorder, unspecified; K21.9 Gastro-esophageal reflux disease without esophagitis; Z79.899 Other long term (current) drug therapy
CPT/HCPCS: 36415; 71045; 80053; 84484; 85025; 93005

== ENCOUNTER 2024-09-11 20:10 | Emergency (ER) | payer MEDICAID ==
[~2024-09-11] VITALS: Ht 175.3 cm; Wt 72.0 kg
[2024-09-11 20:10] VITALS: BP 127/69; RESP 18; TEMP 97.5; O2SAT 98
--- NOTE | 2024-09-11 20:23 | ED.PDOC ---
History of Present Illness HPI Comments 18-year-old male who comes in with chief complaint of palpitations. The patient states that the symptoms have been going off and on. He was actually seen in the emergency department's last night and was worked up and then sent home. At that time he was having some chest wall pain for approximately 45 minutes. He does have a history of several visits to different hospitals for similar complaints. Recently he was seen at [facility] and had an echocardiogram done but the results are still pending. He does have a history of anxiety but is somewhat noncompliant with his medications as well as his follow up with the estate planning counselor. Upon arrival, the patient was heart rate went as high has 130 and he did complaining of some chest pressure being a 6/10. He denies any fever or chills. Time Seen by MD: 20:13 Primary Care Provider: JOYCE Reviewed Notes: Nurses Notes, Probate Lawyer Notes, Medications, Allergies (NKDA) Allergies: Coded Allergies: NO KNOWN ALLERGIES (Unverified , 07/28/24) Home Meds Active Scripts Pantoprazole Sodium Sesquihydr (Protonix) 40 Mg Tab, 40 MG PO DAILY for 30 Days, #30 TAB Prov:MAME MALIK RESIDENT 09/03/24 Diltiazem Hcl (Cardizem La) 120 Mg Tab, 120 MG PO DAILY for 30 Days, #30 TAB Prov:MONROE LEON ANIMAL CHIROPRACTOR 08/22/24 Sertraline HCl (Sertraline HCl) 50 Mg Tab, 50 MG PO DAILY for 21 Days, #21 TAB Give after 1st week of 25 mg p.o. daily Prov:MONROE LEON ANIMAL CHIROPRACTOR 07/30/24 Information Source: Patient, Emergency Med Personnel Mode of Arrival: EMS Severity: Moderate Timing: Days Duration: Intermittent Prehospital treatment: Stretcher Helper Associated signs and symptoms Palpitations with chest pressure Past Medical History PAST MEDICAL HISTORY: Anxiety, GERD Surgical History: Denies all surgeries Family History Family History: Reviewed,noncontributory to illness Social History Smoker: Non-Smoker Alcohol: Denies ETOH Use Drugs: Denies Drug Use Lives In: Home Constitutional: denies: chills, diaphoresis, fatigue, fever, malaise, sweats, weakness, others EENTM: denies: blurred vision, double vision, ear bleeding, ear discharge, ear drainage, ear pain, ear ringing, eye pain, eye redness, hearing loss, mouth pain, mouth swelling, nasal discharge, nose bleeding, nose congestion, nose pain, photophobia, tearing, throat pain, throat swelling, voice changes, others Respiratory: reports: shortness of breath; denies: cough, hemoptysis, orthopnea, SOB at rest, SOB with excertion, stridor, wheezing, others Cardiovascular: reports: chest pain, palpitations; denies: dizzy spells, diaphoresis, Dyspnea on exertion, edema, irregular heart beat, left arm pain, lightheadedness, PND, syncope, others Gastrointestinal: denies: abdomen distended, abdominal pain, blood streaked bowels, constipated, diarrhea, dysphagia, difficulty swallowing, hematemesis, melena, nausea, poor appetite, poor fluid intake, rectal bleeding, rectal pain, vomiting, others Genitourinary: denies: burning, dysuria, flank pain, frequency, hematuria, incontinence, penile discharge, penile sore, pain, testicle pain, testicle swelling, urgency, others Neurological: denies: dizziness, fainting, headache, left sided numbness, left sided weakness, numbness, paresthesia, pre-existing deficit, right sided numbness, right sided weakness, seizure, speech problems, tingling, tremors, weakness, others Musculoskeletal: denies: back pain, gout, joint pain, joint swelling, muscle pain, muscle stiffness, neck pain, others Integumetry: denies: bruises, change in color, change in hair/nails, dryness, laceration, lesions, lumps, rash, wounds, others Allergic/Immunocompromised: denies: Difficulty Healing, Frequent Infections, Hives, Itching, others Hematologic/Lymphatic: denies: anemia, blood clots, easy bleeding, easy bruising, swollen glands, others Endocrine: denies: excessive hunger, excessive sweating, excessive thirst, excessive urination, flushing, intolerance to cold, intolerance to heat, unexplained weight gain, unexplained weight loss, others Psychiatric: denies: anxiety, bipolar disorder, depression, hopeless, panic disorder, schizophrenia, sleepless, suicidal, others Physical Exam General Appearance: Mild Distress, Other (Anxiety) HEENT: Normal ENT Inspection, Pharynx Normal, TMs Normal Neck: Full Range of Motion, Non-Tender, Normal, Normal Inspection Respiratory: Chest Non-Tender, Lungs Clear, No Accessory Muscle Use, No Respiratory Distress, Normal Breath Sounds Cardiovascular: No Edema, No JVD, No Murmur, No Gallop, Normal Peripheral Pulses, Regular Rate/Rhythm Breast Exam: Deferred Gastrointestinal: No Organomegaly, Non Tender, No Pulsatile Mass, Normal Bowel Sounds, Soft Genitalia: Deferred Pelvic: Deferred Rectal: Deferred Extremities: No calf tenderness, Normal capillary refill, Normal inspection, Normal range of motion, Non-tender, No pedal edema Musculoskeletal : Apperance: Normal Neurologic: Alert, winch driver II-XII nml as Tested, No Motor Deficits, Normal Affect, Normal Mood, No Sensory Deficits Cerebellar Function: Normal Reflexes: Normal Skin: Dry, Normal Color, Warm Lymphatic: No Adenopathy Was a procedure done? Was a procedure done?: No EKG EKG : Pulse Rate (adult): 94 Gering: RAD Cardiac Rhythm: NSR Block: None ST: Nonsp Differential Dx Considerations may include: ACS, [place], SVT, PE X-Ray, Labs, Meds, VS Vital Signs Date Time Temp Pulse Resp B/P (MAP) Pulse Ox O2 Delivery O2 Flow Rate FiO2 09/11/24 20:32 94 09/11/24 20:18 94 09/11/24 20:10 97.5 95 18 127/69 (88) 98 97.5 Lab Test 09/11/24 20:22 Range/Units White Blood Count 7.4 4.4-10.8 10^3/uL Red Blood Count 4.48 L 4.5-5.90 10^6/uL Hemoglobin 13.0 L 13.5-17.5 g/dL Hematocrit 38.4 L 41.0-53.0 % Mean Corpuscular Volume 85.8 80.0-100.0 fL Mean Corpuscular Hemoglobin 29.1 28.0-32.0 pg Mean Corpuscular Hemoglobin Concent 33.9 32.0-36.0 g/dL Red Cell Distribution Width 15.4 H 11.8-14.3 % Platelet Count 277 140-450 10^3/uL Mean Platelet Volume 10.4 6.9-10.8 fL Neutrophils (%) (Auto) 57.2 37.0-80.0 % Lymphocytes (%) (Auto) 31.6 10.0-50.0 % Monocytes (%) (Auto) 8.9 0.0-12.0 % Eosinophils (%) (Auto) 1.7 0.0-7.0 % Basophils (%) (Auto) 0.6 0.0-2.0 % Neutrophils # (Auto) 4.2 1.6-8.6 10 ^3/uL Lymphocytes # (Auto) 2.3 0.4-5.4 10 ^3/uL Monocytes # (Auto) 0.7 0-1.3 10 ^3/uL Eosinophils # (Auto) 0.1 0-0.8 10 ^3/uL Basophils # (Auto) 0 0-0.2 10 ^3/uL Nucleated Red Blood Cells 0.0 % Sodium Level 137 136-145 mmol/L Potassium Level 3.4 L 3.5-5.1 mmol/L Chloride Level 106 98-107 mmol/L Carbon Dioxide Level 19 L 20-31 mmol/L Anion Gap 12 5-15 Blood Urea Nitrogen 7 L 9-23 mg/dL Creatinine 0.76 0.700-1.30 mg/dL Glomerular Filtration Rate Calc 132 >90 mL/min BUN/Creatinine Ratio 9.2 L 10.0-20.0 Serum Glucose 91 74-106 mg/dL Calcium Level 10.2 8.7-10.4 mg/dL Magnesium Level 1.9 1.6-2.6 mg/dL Troponin I High Sensitivity 5 </=54 ng/L IV Hep-Lock THE CBC AND CHEMISTRY PANEL ARE WITHIN NORMAL LIMITS THE PATIENT WAS BEING DISCHARGED AND WILL FOLLOW UP WITH THE PRIMARY CARE DOCTOR THE PATIENT WAS TOLD THAT IF HIS CONDITION WORSENS HE SHOULD RETURN THE PATIENT WAS ALSO TOLD THE NEEDS TO SEE A DRUM TENDER Images Reviewed?: Images reviewed and evaluated by me Time of 1ST Reevaluation: 20:22 Reevaluation 1ST: Unchanged Time of 2ND Reevaluation: 21:46 Reevaluation 2ND: Improved Patient Education/Counseling: Diagnosis, Treatment, Prognosis, Need For Follow Up Family Education/Counseling: No Family Present Departure 1 Departure Time of Disposition: 21:45 Impression: Primary Impression: Atypical chest pain Additional Impression: Palpitations Disposition: 01 HOME / SELF CARE / HOMELESS Condition: Fair Discharged With: Self Critical Care Note Critical Care Time?: No Stability Stability form required: Yes Unstable for transfer: ED Physician Assesment (Clinical assesment) Heart Score Heart Score: Heart Score Response (Comments) Value History N/A 0 EKG N/A 0 Age N/A 0 Risk Factors N/A 0 Troponin N/A 0 Total 0 MICHELLE DENTON MD Sep 11, 2024 20:23
--- NOTE | 2024-09-11 20:24 | ECG ---
[facility] Test Date: 2024-09-11 Test Time: 20:18:29 Pat Name: BO LEBLANC Department: ED Room: Gender: M Integrative Medicine Physician: ER : 2005 Requested By: MICHELLE DENTON Order Number: [id number] Reading MD: Tucker Nagy Measurements Intervals [place] Rate: 94 P: 48 [place]: 128 QRS: 96 QRSD: 80 T: -12 QT: 338 QTc: 423 Interpretive Statements Sinus rhythm Borderline right axis deviation Borderline repolarization abnormality Electronically Signed On 09-12-2024 18:50:42 PDT by Tucker Nagy Please click the below link to view image of tracing.
[2024-09-11 20:32] VITALS: PULSE 94
[2024-09-11 20:39] LABS: Basophils # (auto) 0 10 ^3/uL (0-0.2); Basophils % (auto) 0.6 % (0.0-2.0); Eosinophils # (auto) 0.1 10 ^3/uL (0-0.8); Eosinophils % (auto) 1.7 % (0.0-7.0); Hematocrit 38.4 % (41.0-53.0); Lymphocytes # (auto) 2.3 10 ^3/uL (0.4-5.4); Lymphocytes % (auto) 31.6 % (10.0-50.0); Mean Corpuscular Hemoglobin 29.1 pg (28.0-32.0); Mean Corpuscular Hgb Conc. 33.9 g/dL (32.0-36.0); Mean Corpuscular Volume 85.8 fL (80.0-100.0); Monocytes # (auto) 0.7 10 ^3/uL (0-1.3); Monocytes % (auto) 8.9 % (0.0-12.0); Neutrophils # (auto) 4.2 10 ^3/uL (1.6-8.6); Neutrophils % (auto) 57.2 % (37.0-80.0); Platelet Count (auto) 277 10^3/uL (140-450); Red Blood Cells 4.48 10^6/uL (4.5-5.90); Red Cell Distribution Width 15.4 % (11.8-14.3); White Blood Cell 7.4 10^3/uL (4.4-10.8)
[2024-09-11 20:40] LABS: Chloride 106 mmol/L (98-107); Sodium 137 mmol/L (136-145)
[2024-09-11 20:41] LABS: Anion Gap 12 (5-15)
[2024-09-11 20:42] LABS: Calcium 10.2 mg/dL (8.7-10.4)
[2024-09-11 20:46] LABS: Glucose 91 mg/dL (74-106)
[2024-09-11 20:47] LABS: BUN/Creatinine Ratio 9.2 (10.0-20.0); Magnesium 1.9 mg/dL (1.6-2.6)
[2024-09-11 21:10] LABS: Blood Urea Nitrogen 7 mg/dL (9-23); Carbon Dioxide 19 mmol/L (20-31); Potassium 3.4 mmol/L (3.5-5.1)
[2024-09-13] MEDS ORDERED: GABA300T4 PO (04:54)
[2024-09-13] MEDS ORDERED: FAMO20TA10 PO (04:54)
== END 2024-09-12 00:03 | disposition home or self-care (01) ==
LOC: EDBD 20:10 → ER 20:10
DX: R07.89 Other chest pain (principal); R00.2 Palpitations; F41.9 Anxiety disorder, unspecified; K21.9 Gastro-esophageal reflux disease without esophagitis; Z79.899 Other long term (current) drug therapy
CPT/HCPCS: 36415; 80048; 83735; 84484; 85025; 93005

== ENCOUNTER 2024-09-13 03:29 | Emergency (ER) | payer MEDICAID ==
[~2024-09-13] VITALS: Ht 175.3 cm; Wt 72.7 kg
--- NOTE | 2024-09-13 03:48 | ED.PDOC ---
History of Present Illness HPI Comments 18-year-old male with PMHx Anxiety brought in by EMS presents with a chief complaint of chest wall pain x 45 minutes. Patient has extensive history of chest pain complaints at this hospital and is known to be seen at [facility] and [facility], [facility], then comes back to [facility] to be evaluated. Per EMS, patient was just seen at the previous two hospitals and was seen twice on September 11 at this hospital with unremarkable findings. Patient is also known to be noncompliant with his anxiety medications and not following up with his dental ceramist helper. Time Seen by MD: 03:45 Primary Care Provider: JOYCE Reviewed Notes: Medications, Allergies Allergies: Coded Allergies: NO KNOWN ALLERGIES (Unverified , 07/28/24) Home Meds Active Scripts Gabapentin (Once-Daily) (Gabapentin) 300 Mg Tab, 300 MG PO Q6HP PRN, #30 TAB Prov:CHRIS VÁZQUEZ MD 09/13/24 Famotidine (PEPCID TABLET) 20 Mg Tb, 1 TAB PO BID for 30 Days, #60 TAB 5 Refills Prov:CHRIS VÁZQUEZ MD 09/13/24 Pantoprazole Sodium Sesquihydr (Protonix) 40 Mg Tab, 40 MG PO DAILY for 30 Days, #30 TAB Prov:MAME MALIK RESIDENT 09/03/24 Diltiazem Hcl (Cardizem La) 120 Mg Tab, 120 MG PO DAILY for 30 Days, #30 TAB Prov:MONROE LEON SENIOR COMMUNICATIONS SPECIALIST 08/22/24 Sertraline HCl (Sertraline HCl) 50 Mg Tab, 50 MG PO DAILY for 21 Days, #21 TAB Give after 1st week of 25 mg p.o. daily Prov:MONROE LEON SENIOR COMMUNICATIONS SPECIALIST 07/30/24 Information Source: Patient, Emergency Med Personnel Mode of Arrival: EMS Severity: Moderate Timing: Minutes Duration: Since onset Prehospital treatment: None Past Medical History PAST MEDICAL HISTORY: Anxiety, GERD Surgical History: Denies all surgeries Family History Family History: Reviewed,noncontributory to illness Social History Smoker: Non-Smoker Alcohol: Denies ETOH Use Drugs: Denies Drug Use Lives In: Home Constitutional: denies: chills, diaphoresis, fatigue, fever, malaise, sweats, weakness, others EENTM: denies: blurred vision, double vision, ear bleeding, ear discharge, ear drainage, ear pain, ear ringing, eye pain, eye redness, hearing loss, mouth pain, mouth swelling, nasal discharge, nose bleeding, nose congestion, nose pain, photophobia, tearing, throat pain, throat swelling, voice changes, others Respiratory: denies: cough, hemoptysis, orthopnea, SOB at rest, shortness of breath, SOB with excertion, stridor, wheezing, others Cardiovascular: reports: chest pain; denies: dizzy spells, diaphoresis, Dyspnea on exertion, edema, irregular heart beat, left arm pain, lightheadedness, palpitations, PND, syncope, others Gastrointestinal: denies: abdomen distended, abdominal pain, blood streaked bowels, constipated, diarrhea, dysphagia, difficulty swallowing, hematemesis, melena, nausea, poor appetite, poor fluid intake, rectal bleeding, rectal pain, vomiting, others Genitourinary: denies: burning, dysuria, flank pain, frequency, hematuria, incontinence, penile discharge, penile sore, pain, testicle pain, testicle swelling, urgency, others Neurological: denies: dizziness, fainting, headache, left sided numbness, left sided weakness, numbness, paresthesia, pre-existing deficit, right sided numbness, right sided weakness, seizure, speech problems, tingling, tremors, weakness, others Musculoskeletal: denies: back pain, gout, joint pain, joint swelling, muscle pain, muscle stiffness, neck pain, others Integumetry: denies: bruises, change in color, change in hair/nails, dryness, laceration, lesions, lumps, rash, wounds, others Allergic/Immunocompromised: denies: Difficulty Healing, Frequent Infections, Hives, Itching, others Hematologic/Lymphatic: denies: anemia, blood clots, easy bleeding, easy bruising, swollen glands, others Endocrine: denies: excessive hunger, excessive sweating, excessive thirst, excessive urination, flushing, intolerance to cold, intolerance to heat, unexp lained weight gain, unexplained weight loss, others Psychiatric: denies: anxiety, bipolar disorder, depression, hopeless, panic disorder, schizophrenia, sleepless, suicidal, others All Other Systems: Reviewed and Negative Physical Exam General Appearance: No Apparent Distress, Normal HEENT: Normal ENT Inspection, Pharynx Normal, TMs Normal Neck: Full Range of Motion, Non-Tender, Normal, Normal Inspection Respiratory: Chest Non-Tender, Lungs Clear, No Accessory Muscle Use, No Respiratory Distress, Normal Breath Sounds Cardiovascular: No Edema, No JVD, No Murmur, No Gallop, Normal Peripheral Pulse s, Regular Rate/Rhythm Breast Exam: Deferred Gastrointestinal: No Organomegaly, Non Tender, No Pulsatile Mass, Normal Bowel Sounds, Soft Genitalia: Deferred Pelvic: Deferred Rectal: Deferred Extremities: No calf tenderness, Normal capillary refill, Normal inspection, Normal range of motion, Non-tender, No pedal edema Musculoskeletal : Apperance: Normal Neurologic: Alert, field artillery fire control man II-XII nml as Tested, No Motor Deficits, Normal Affect, Normal Mood, No Sensory Deficits Cerebellar Function: Normal Reflexes: Normal Skin: Dry, Normal Color, Warm Lymphatic: No Adenopathy Was a procedure done? Was a procedure done?: No Differential Dx Considerations may include: Differential diagnosis includes but not limited to: angina, myocardial infarction, pulmonary embolus, pleurisy, musculoskeletal etiology and others X-Ray, Labs, Meds, VS Vital Signs Date Time Temp Pulse Resp B/P (MAP) Pulse Ox O2 Delivery O2 Flow Rate FiO2 09/13/24 04:05 97.9 102 18 128/66 (86) 98 97.9 09/13/24 04:00 102 18 98 Room Air* 0 21 09/13/24 03:39 78 09/13/24 03:36 97.8 88 17 134/84 (101) 98 97.8 Current Medications Medications (Trade) Dose Ordered Sig/Temo Route Start Time Stop Time Status Last Admin Sodium Chloride 1,000 ml @ 1,000 mls/hr Q1H ONCE IV 09/13/24 04:00 09/13/24 04:59 DC 09/13/24 04:10 Ketorolac Tromethamine (Toradol Injection) 15 mg ONCE ONCE IV 09/13/24 04:00 09/13/24 04:01 DC 09/13/24 04:10 Time of 1ST Reevaluation: 04:15 Reevaluation 1ST: Unchanged Patient Education/Counseling: Diagnosis, Treatment, Prognosis Family Education/Counseling: No Family Present Departure 1 Departure Time of Disposition: 05:15 Impression: Primary Impression: Atypical chest pain Disposition: HOME / SELF CARE / HOMELESS Condition: Stable Additional Instructions: PATIENT: BO LEBLANC ACCT: [id number] UNIT: [id number] : 2005 LOC: ER ROOM / BED: / AGE / SEX: 18 / M ADM STATUS: REG ER SERVICE [id number] ORDERING PHYSICIAN: CHRIS VÁZQUEZ MD PROCEDURE(s): CXICT - CHEST WITH CONTRAST REASON: chest pain, elevated CRP ORDER NUMBER(s): [id number], ACCESSION NUMBER(s): [id number] Procedure: CT CHEST WITH CONTRAST 09/13/2024 04:12 AM History: chest pain, elevated CRP Comparison: None Technique: After the administration of contrast intravenously, CT imaging was performed through the chest. Coronal and sagittal reformations were performed by the technologist. 3D image postprocessing was performed on a dedicated workstation and images were used for interpretation and reporting. Radiation Dose : CT Dose: CTDI volume is 11.29 mGy. Dose-length product is 414.07 mGy*cm CONTRAST: Type of contrast: Omnipaque 300 Contrast injected: 100 ml Findings: Lower neck: Normal thyroid. Lungs: No focal consolidation. Heart/Vascular Structures: Normal heart size. No pericardial effusion. Lymph Nodes: No adenopathy Pleura: No pleural effusion or significant pneumothorax. Musculoskeletal: No acute osseous abnormality. Soft tissues: Normal. Upper abdomen: Limited portions of the upper abdomen are unremarkable. IMPRESSION: 1. No evidence of acute intrathoracic pathology identified. ATED BY: SON STANTON MD DICTATED DATE/TIME: 09/13/24440 SIGNED BY: SON STANTON MD SIGNED DATE/TIME: 09/13/24440 e-Prescriptions Gabapentin (Once-Daily) (Gabapentin) 300 Mg Tab 300 MG PO Q6HP PRN, #30 TAB Prov: CHRIS VÁZQUEZ MD 09/13/24 Famotidine (PEPCID TABLET) 20 Mg Tb 1 TAB PO BID for 30 Days, #60 TAB 5 Refills Prov: CHRIS VÁZQUEZ MD 09/13/24 Discharged With: Self Critical Care Note Critical Care Time?: No Stability Stability form required: No Heart Score Heart Score: Heart Score Response (Comments) Value History Slightly Suspicious 0 EKG Normal 0 Age <45 0 Risk Factors No known risk factors 0 Troponin Normal limit 0 Total 0 I personally scribed for CHRIS VÁZQUEZ MD ([email or web address]) on 09/13/24 at 03:48. Electronically submitted by Van Gutierrez ([email or web address]). I personally scribed for CHRIS VÁZQUEZ MD ([email or web address]) on 09/13/24 at 04:58. Electronically submitted by Van Gutierrez ([email or web address]). CHRIS VÁZQUEZ MD Sep 13, 2024 03:48
--- NOTE | 2024-09-13 03:57 | ECG ---
[facility] Test Date: 2024-09-13 Test Time: 03:39:41 Pat Name: BO LEBLANC Department: ED Room: Gender: M Food Quality Tester: ER : 2005 Requested By: CHRIS VÁZQUEZ Order Number: [id number] Reading MD: Tucker Nagy Measurements Intervals [place] Rate: 78 P: 65 WA: 137 QRS: 77 QRSD: 83 T: 31 QT: 373 QTc: 425 Interpretive Statements Sinus rhythm Electronically Signed On 09-13-2024 18:20:20 PDT by Tucker Nagy Please click the below link to view image of tracing.
[2024-09-13 04:00] VITALS: PULSE 102; RESP 18; O2SAT 98
[2024-09-13 04:05] VITALS: BP 128/66; PULSE 102; RESP 18; TEMP 97.9; O2SAT 98
[2024-09-13] MEDS: KETOROLAC TROMETH 30 MG/ML 1ML VIAL IV ONE (04:10)
[2024-09-13] MEDS: SODIUM CHLORIDE 0.9% 1,000 ML IV ONE (04:10)
[2024-09-13] MEDS: IOHEXOL 300 MG/ML 100ML BOTTLE IJ ONE (04:20)
--- NOTE | 2024-09-13 04:43 | DVH ---
Procedure: CT CHEST WITH CONTRAST 09/13/2024 04:12 AM History: chest pain, elevated CRP Comparison: None Technique: After the uneventful administration of contrast intravenously, CT imaging was performed th rough the chest. Coronal and sagittal reformations were performed by the technologist. 3D image postprocessing was performed on a dedicated workstation and images were used for interpretat ion and reporting. Radiation Dose : CT Dose: CTDI volume is 11.29 mGy. Dose-length product is 414.07 mGy*cm CONTRAST: Type of contrast: Omnipaque 300 Contrast injected: 100 ml Findings: Lower neck: Normal thyroid. Lungs: No focal consolidation. Heart/Vascular Structures: Normal heart size. No pericardial effusion. Lymph Nodes: No adenopathy Pleura: No pleural effusion or significant pneumothorax. Musculoskeletal: No acute osseous abnormality. Soft tissues: Normal. Upper abdomen: Limited portions of the upper abdomen are unremarkable. IMPRESSION: 1. No evidence of acute intrathoracic pathology identified.
[2024-09-13] MEDS ORDERED: GABA300T4 PO (04:54)
[2024-09-13] MEDS ORDERED: FAMO20TA10 PO (04:54)
== END 2024-09-13 05:09 | disposition home or self-care (01) ==
LOC: ER 03:29 → EDBD 03:29 → ER 05:09
DX: R07.89 Other chest pain (principal); F41.9 Anxiety disorder, unspecified; K21.9 Gastro-esophageal reflux disease without esophagitis; Z79.899 Other long term (current) drug therapy
CPT/HCPCS: 71260; 93005; 96361; 96374; 99285; J1885; J7030; Q9967

== ENCOUNTER 2024-09-15 16:07 | Inpatient (IN) | payer MEDICAID ==
[~2024-09-15] VITALS: Ht 175.3 cm; Wt 77.3 kg
[~2024-09-15 16:07] MED LIST changes: +FAMO20TA10 PO; +GABA300T4 PO
--- NOTE | 2024-09-15 16:48 | ECG ---
[facility] Test Date: 2024-09-15 Test Time: 16:20:25 Pat Name: BO LEBLANC Department: ED Room: 0238T Gender: M Manager Advanced: desiree : 2005 Requested By: BARI VINCENT Order Number: [id number] Reading MD: Tucker Nagy Measurements Intervals [place] Rate: 86 P: 52 [place]: 148 QRS: 51 QRSD: 75 T: 40 QT: 348 QTc: 417 Interpretive Statements Sinus rhythm Borderline T wave abnormalities Electronically Signed On 09-18-2024 20:40:47 PDT by Tucker Nagy Please click the below link to view image of tracing.
[2024-09-15] MEDS ORDERED: ONDANSETRON HCL 4 MG/2 ML VIAL IV ONE (18:00)
--- NOTE | 2024-09-15 18:06 | ED.PDOC ---
History of Present Illness HPI Comments 18-year-old male who comes in with chief complaint of nausea as well as shortness for breath. The patient states that he was laying down and started to get somewhat nauseated. He states that he is having now pain in his lower chest and upper abdominal area. He has had this in the past and states that it was heart rate becomes very erratic. He has been told that he may have had SVT. The patient denies any other complaints at this time. He was rolled in the wheelchair to the treatment area after being transported to our facility by paramedics. 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, IVF Associated signs and symptoms Generalized weakness with nausea and shortness a breath as well as abdominal pain Past Medical History Past Medical History (Other): SVT Surgical History: Denies all surgeries Family History Family History: No family hx of Cancer, No family hx of DM, No family hx of Heart kelsea Social History Smoker: Non-Smoker Alcohol: Denies ETOH Use Drugs: Denies Drug Use Lives In: Home Constitutional: denies: chills, diaphoresis, fatigue, fever, malaise, sweats, weakness, others EENTM: denies: blurred vision, double vision, ear bleeding, ear discharge, ear drainage, ear pain, ear ringing, eye pain, eye redness, hearing loss, mouth pain, mouth swelling, nasal discharge, nose bleeding, nose congestion, nose pain, photophobia, tearing, throat pain, throat swelling, voice changes, others Respiratory: reports: shortness of breath; denies: cough, hemoptysis, orthopnea, SOB at rest, SOB with excertion, stridor, wheezing, others Cardiovascular: reports: chest pain; denies: dizzy spells, diaphoresis, Dyspnea on exertion, edema, irregular heart beat, left arm pain, lightheadedness, palpitations, PND, syncope, others Gastrointestinal: reports: abdominal pain, nausea; denies: abdomen distended, blood streaked bowels, constipated, diarrhea, dysphagia, difficulty swallowing, hematemesis, melena, poor appetite, poor fluid intake, rectal bleeding, rectal pain, vomiting, others Genitourinary: denies: burning, dysuria, flank pain, frequency, hematuria, incontinence, penile discharge, penile sore, pain, testicle pain, testicle swelling, urgency, others Neurological: denies: dizziness, fainting, headache, left sided numbness, left sided weakness, numbness, paresthesia, pre-existing deficit, right sided numbness, right sided weakness, seizure, speech problems, tingling, tremors, weakness, others Musculoskeletal: denies: back pain, gout, joint pain, joint swelling, muscle pain, muscle stiffness, neck pain, others Integumetry: denies: bruises, change in color, change in hair/nails, dryness, laceration, lesions, lumps, rash, wounds, others Allergic/Immunocompromised: denies: Difficulty Healing, Frequent Infections, Hives, Itching, others Hematologic/Lymphatic: denies: anemia, blood clots, easy bleeding, easy bruising, swollen glands, others Endocrine: denies: excessive hunger, excessive sweating, excessive thirst, excessive urination, flushing, intolerance to cold, intolerance to heat, unexplained weight gain, unexplained weight loss, others Psychiatric: denies: anxiety, bipolar disorder, depression, hopeless, panic disorder, schizophrenia, sleepless, suicidal, others Physical Exam General Appearance: Moderate Distress HEENT: Pale Conjuntivae (L), Pale Conjuntivae (R), Pharynx Normal, TMs Normal Neck: Full Range of Motion, Non-Tender, Normal, Normal Inspection Respiratory: Chest Non-Tender, Lungs Clear, No Accessory Muscle Use, No Respiratory Distress, Normal Breath Sounds Cardiovascular: No Edema, No JVD, No Murmur, No Gallop, Normal Peripheral Pulses, Regular Rate/Rhythm Breast Exam: Deferred Gastrointestinal: No Organomegaly, Non Tender, No Pulsatile Mass, Normal Bowel Sounds, Soft Genitalia: Deferred Pelvic: Deferred Rectal: Deferred Extremities: No calf tenderness, Normal capillary refill, No pedal edema Musculoskeletal : Apperance: Normal Neurologic: Alert, trading specialist II-XII nml as Tested, Motor Weakness, Normal Affect, Normal Mood, No Sensory Deficits Cerebellar Function: Normal Reflexes: Normal Skin: Dry, Pallor, Warm Lymphatic: No Adenopathy Was a procedure done? Was a procedure done?: No EKG EKG : Pulse Rate (adult): [employer]: Normal Cardiac Rhythm: NSR Block: None ST: Nonsp Differential Dx Considerations may include: Generalized weakness, electrolyte imbalance, SVT, ACS X-Ray, Labs, Meds, VS Vital Signs Date Time Temp Pulse Resp B/P (MAP) Pulse Ox O2 Delivery O2 Flow Rate FiO2 09/15/24 20:23 98.1 113 18 119/76 (90) 98 98.1 09/15/24 19:20 97.7 97 16 115/73 (87) 100 97.7 09/15/24 18:05 86 09/15/24 16:20 86 09/15/24 16:14 98.1 92 18 116/80 (92) 99 98.1 Lab Test 09/15/24 17:51 09/15/24 16:43 Range/Units Troponin I High Sensitivity 9 9 </=54 ng/L White Blood Count 6.6 4.4-10.8 10^3/uL Red Blood Count 4.36 L 4.5-5.90 10^6/uL Hemoglobin 12.7 L 13.5-17.5 g/dL Hematocrit 38.0 L 41.0-53.0 % Mean Corpuscular Volume 87.0 80.0-100.0 fL Mean Corpuscular Hemoglobin 29.1 28.0-32.0 pg Mean Corpuscular Hemoglobin Concent 33.5 32.0-36.0 g/dL Red Cell Distribution Width 15.2 H 11.8-14.3 % Platelet Count 283 140-450 10^3/uL Mean Platelet Volume 10.5 6.9-10.8 fL Neutrophils (%) (Auto) 61.5 37.0-80.0 % Lymphocytes (%) (Auto) 27.4 10.0-50.0 % Monocytes (%) (Auto) 9.1 0.0-12.0 % Eosinophils (%) (Auto) 1.6 0.0-7.0 % Basophils (%) (Auto) 0.4 0.0-2.0 % Neutrophils # (Auto) 4.0 1.6-8.6 10 ^3/uL Lymphocytes # (Auto) 1.8 0.4-5.4 10 ^3/uL Monocytes # (Auto) 0.6 0-1.3 10 ^3/uL Eosinophils # (Auto) 0.1 0-0.8 10 ^3/uL Basophils # (Auto) 0 0-0.2 10 ^3/uL Nucleated Red Blood Cells 0.1 % Sodium Level 139 136-145 mmol/L Potassium Level 4.0 3.5-5.1 mmol/L Chloride Level 108 H 98-107 mmol/L Carbon Dioxide Level 21 20-31 mmol/L Anion Gap 10 5-15 Blood Urea Nitrogen 7 L 9-23 mg/dL Creatinine 0.71 0.700-1.30 mg/dL Glomerular Filtration Rate Calc 135 >90 mL/min BUN/Creatinine Ratio 9.9 L 10.0-20.0 Serum Glucose 106 74-106 mg/dL Calcium Level 9.9 8.7-10.4 mg/dL Magnesium Level 1.9 1.6-2.6 mg/dL The troponin level is negative An IV Hep-Lock was established The patient's CBC is within normal limits The chemistry panel is within normal limits. The 2nd troponin level is negative At this time, the patient is being admitted to the hospitalist The patient was being admitted at this time. Images Reviewed?: Images reviewed and evaluated by me Time of 1ST Reevaluation: 18:05 Reevaluation 1ST: Unchanged Patient Education/Counseling: Diagnosis, Treatment, Prognosis Family Education/Counseling: Diagnosis, Treatment, Prognosis Departure 1 Departure Time of Disposition: 20:39 Impression: Primary Impression: Acute respiratory distress Additional Impression: Generalized weakness Disposition: ADMITTED INPATIENT Admit to: Tele Condition: Fair Critical Care Note Critical Care Time?: Yes (35 min-critical care time only) Stability Stability form required: Yes Unstable for transfer: Telemetry monitoring (Telemetry monitoring required), ED Physician Assesment (Clinical assesment) Heart Score Heart Score: Heart Score Response (Comments) Value History Slightly Suspicious 0 EKG Normal 0 Age <45 0 Risk Factors 1 or 2 risk factors 1 Troponin Normal limit 0 Total 1 MICHELLE DENTON MD Sep 15, 2024 18:05
--- NOTE | 2024-09-15 18:34 | DVH ---
CHEST RADIOGRAPH Indication: sob Technique: Frontal and lateral view of the chest was obtained Comparison: None FINDINGS: Lines and Tubes: None Lungs: Clear Pleura: No effusion. No pneumothorax. Cardiomediastinal contours: Unremarkable Bones: Unremarkable IMPRESSION: 1. No evidence of acute disease.
[2024-09-15 19:47] LABS: Basophils # (auto) 0 10 ^3/uL (0-0.2); Basophils % (auto) 0.4 % (0.0-2.0); Eosinophils # (auto) 0.1 10 ^3/uL (0-0.8); Eosinophils % (auto) 1.6 % (0.0-7.0); Hemoglobin 12.7 g/dL (13.5-17.5); Lymphocytes # (auto) 1.8 10 ^3/uL (0.4-5.4); Lymphocytes % (auto) 27.4 % (10.0-50.0); Mean Corpuscular Hemoglobin 29.1 pg (28.0-32.0); Mean Corpuscular Hgb Conc. 33.5 g/dL (32.0-36.0); Monocytes # (auto) 0.6 10 ^3/uL (0-1.3); Monocytes % (auto) 9.1 % (0.0-12.0); Neutrophils % (auto) 61.5 % (37.0-80.0); Nucleated Red Blood Cells % 0.1 %; Platelet Count (auto) 283 10^3/uL (140-450); Red Blood Cells 4.36 10^6/uL (4.5-5.90); Red Cell Distribution Width 15.2 % (11.8-14.3); White Blood Cell 6.6 10^3/uL (4.4-10.8)
[2024-09-15 20:04] LABS: Sodium 139 mmol/L (136-145)
[2024-09-15 20:05] LABS: Anion Gap 10 (5-15); Calcium 9.9 mg/dL (8.7-10.4); Carbon Dioxide 21 mmol/L (20-31)
[2024-09-15 20:10] LABS: BUN/Creatinine Ratio 9.9 (10.0-20.0); Glucose 106 mg/dL (74-106)
[2024-09-15 20:11] LABS: Magnesium 1.9 mg/dL (1.6-2.6)
[2024-09-15 20:24] LABS: Blood Urea Nitrogen 7 mg/dL (9-23); Chloride 108 mmol/L (98-107)
[2024-09-16 02:22] LABS: Basophils # (auto) 0 10 ^3/uL (0-0.2); Basophils % (auto) 0.6 % (0.0-2.0); Eosinophils # (auto) 0.2 10 ^3/uL (0-0.8); Hematocrit 36.4 % (41.0-53.0); Hemoglobin 12.6 g/dL (13.5-17.5); Lymphocytes # (auto) 2.3 10 ^3/uL (0.4-5.4); Lymphocytes % (auto) 29.1 % (10.0-50.0); Mean Corpuscular Hemoglobin 29.7 pg (28.0-32.0); Mean Corpuscular Hgb Conc. 34.6 g/dL (32.0-36.0); Monocytes # (auto) 0.7 10 ^3/uL (0-1.3); Neutrophils # (auto) 4.7 10 ^3/uL (1.6-8.6); Neutrophils % (auto) 59.3 % (37.0-80.0); Nucleated Red Blood Cells % 0.1 %; Platelet Count (auto) 275 10^3/uL (140-450); Red Blood Cells 4.23 10^6/uL (4.5-5.90); Red Cell Distribution Width 15.1 % (11.8-14.3)
[2024-09-16 02:28] LABS: Potassium 3.7 mmol/L (3.5-5.1); Sodium 140 mmol/L (136-145)
[2024-09-16 02:29] LABS: Anion Gap 12 (5-15); Carbon Dioxide 20 mmol/L (20-31); Chloride 108 mmol/L (98-107)
[2024-09-16 02:30] LABS: Calcium 10.5 mg/dL (8.7-10.4)
[2024-09-16 02:34] LABS: BUN/Creatinine Ratio 9.1 (10.0-20.0); Glucose 84 mg/dL (74-106)
[2024-09-16 02:35] LABS: Magnesium 1.9 mg/dL (1.6-2.6)
[2024-09-16 02:37] LABS: Blood Urea Nitrogen 7 mg/dL (9-23)
[2024-09-16 04:42] VITALS: PULSE 85; RESP 16; O2SAT 96
--- NOTE | 2024-09-16 06:07 | DVHHPRES ---
History of Present Illness Resident Creating Document: MARICRUZ VIDAL RESIDENT History of Present Illness 18 M with PMH of SVT presented in the hospital because his smartwatch was showing high heart rate. he also mentioned that he has been having associated shortness of breath, palpitations, nausea , has left sided sharp chest pain that had resolved by the time he presented to the hospital. He also mentioned he gets shortness of breath on minimal activity correlating with NHYA class 3. He sees dr thorne as outpatient for "SVT" and is awaiting outpatient appointment with EP physician. On presenting to the ER, his HR was NSR alternating with sinus tachycardia. 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 Medical history SVT Surgery history denied Family history non significant Medication history Metoprolol social history denied smoking/alcohol/marijuana/any other recreational drug intake Allergic history denied Review of Systems Constitutional: No: Fever, Chills, Sweats, Weakness, Malaise, Other Eyes: No: Pain, Vision change, Conjunctivae inflammation, Eyelid inflammation, Other, Redness ENT: No: Ear pain, Ear discharge, Nose pain, Nose discharge, Nose congestion, Mouth pain, Mouth swelling, Throat pain, Throat swelling, Other Respiratory: Shortness of breath; No: Cough, Dry, SOB with excertion, Wheezing, Hemoptysis, Pleuritic Pain, Sputum, Wheezing, Other Cardiovascular: Chest Pain, Palpitations; No: Orthopnea, Paroxysmal Noc. Dyspnea, Edema, Lt Headedness, Other Allergies: Coded Allergies: NO KNOWN ALLERGIES (Unverified , 07/28/24) Exam Vital Signs Vital Signs Date Time Temp Pulse Resp B/P (MAP) Pulse Ox O2 Delivery O2 Flow Rate FiO2 09/16/24 04:42 85 16 96 Room Air* 0 21 09/16/24 03:30 98.2 115/67 (83) 98.2 General Appearance: Alert, Oriented X3 Respiratory: Clear to auscultation, Normal air movement Cardiovascular: Regular rate, Normal S1, Normal S2 Abdominal: No tenderness Neuro: Normal gait, Normal speech, Normal tone Labs/Xrays Labs Test 09/16/24 02:11 09/15/24 17:51 Range/Units White Blood Count 8.0 4.4-10.8 10^3/uL Red Blood Count 4.23 L 4.5-5.90 10^6/uL Hemoglobin 12.6 L 13.5-17.5 g/dL Hematocrit 36.4 L 41.0-53.0 % Mean Corpuscular Volume 86.0 80.0-100.0 fL Mean Corpuscular Hemoglobin 29.7 28.0-32.0 pg Mean Corpuscular Hemoglobin Concent 34.6 32.0-36.0 g/dL Red Cell Distribution Width 15.1 H 11.8-14.3 % Platelet Count 275 140-450 10^3/uL Mean Platelet Volume 10.1 6.9-10.8 fL Neutrophils (%) (Auto) 59.3 37.0-80.0 % Lymphocytes (%) (Auto) 29.1 10.0-50.0 % Monocytes (%) (Auto) 9.0 0.0-12.0 % Eosinophils (%) (Auto) 2.0 0.0-7.0 % Basophils (%) (Auto) 0.6 0.0-2.0 % Neutrophils # (Auto) 4.7 1.6-8.6 10 ^3/uL Lymphocytes # (Auto) 2.3 0.4-5.4 10 ^3/uL Monocytes # (Auto) 0.7 0-1.3 10 ^3/uL Eosinophils # (Auto) 0.2 0-0.8 10 ^3/uL Basophils # (Auto) 0 0-0.2 10 ^3/uL Nucleated Red Blood Cells 0.1 % Sodium Level 140 136-145 mmol/L Potassium Level 3.7 3.5-5.1 mmol/L Chloride Level 108 H 98-107 mmol/L Carbon Dioxide Level 20 20-31 mmol/L Anion Gap 12 5-15 Blood Urea Nitrogen 7 L 9-23 mg/dL Creatinine 0.77 0.700-1.30 mg/dL Glomerular Filtration Rate Calc 131 >90 mL/min BUN/Creatinine Ratio 9.1 L 10.0-20.0 Serum Glucose 84 74-106 mg/dL Calcium Level 10.5 H 8.7-10.4 mg/dL Magnesium Level 1.9 1.6-2.6 mg/dL Thyroid Stimulating Hormone (TSH) 6.46 H 0.55-4.78 uIU/mL Troponin I High Sensitivity 9 </=54 ng/L Assessment/Plan Assessment/Plan Assessment/Plan #Tachycardia, sinus tach, history of SVT ( follows up with Dr Thorne, pending e valuation by EP outpatient) -EKG, Telemetry monitoring -keep k+>4, Mag>2 -TSH, elevated, ordered Free t3, t4, awaiting results -UDS -echo #Acute respiratory distress, likely due to SVT -currently on room air -Chest Xray Case discussion with Dr Oliveira Plan discussed with: Patient, Other My Orders Orders - MARICRUZ VIDAL Procedure Category Date Status Time Admit ADMIT 09/16/24 Transmitted 01:58 Echo 2d Mode Cardiac US 09/16/24 Logged DOP 01:58 Oxygen By Nasal RT 09/16/24 Transmitted Cannula 01:58 Stat Ekg For Chest [facility] 09/16/24 In Process Pain 01:58 Notify Of Changes [facility] 09/16/24 In Process From Base 01:58 Senior Online Marketing Manager For [facility] 09/16/24 In Process 24 Hours 01:58 Emergency Dysrhythmia [facility] 09/16/24 In Process Protocol 01:58 Rhythm Strips Once [facility] 09/16/24 In Process Every Shift 01:58 Drug Screen LAB 09/16/24 Logged 01:58 Free T4 (Free LAB 09/16/24 Verified Thyroxine) 06:02 Free T3 LAB 09/16/24 Verified 06:02 MARICRUZ VIDAL Sep 16, 2024 06:07
[2024-09-16 06:50] LABS: Free T3 3.13 pg/mL (2.3-4.2); Free T4 (Free Thyroxine) 1.41 ng/dL (0.89-1.76)
[2024-09-16 09:00] VITALS: BP 111/61; PULSE 84; RESP 18; TEMP 97.9; O2SAT 100
[2024-09-16] MEDS: SODIUM CHLORIDE 0.9% 1,000 ML IV SCH (09:30)
[2024-09-16 11:36] LABS: Amphetamine Screen, Urine Neg (NEGATIVE); Barbiturate Scree,Urine Neg (NEGATIVE); Benzodiazephine Screen, Urine Neg (NEGATIVE); Cocaine Screen, Urine Neg (NEGATIVE); Opiate Scree,Urine Neg (NEGATIVE); Phencyclidine Screen, Urine Neg (NEGATIVE)
[2024-09-16 11:37] LABS: Cannabinoid Screen, Urine Neg (NEGATIVE)
[2024-09-16 12:31] VITALS: BP 116/62; PULSE 76; RESP 18; TEMP 97.3; O2SAT 97
--- NOTE | 2024-09-16 14:21 | DVHPNRES ---
Progress Note Date Seen: Sep 16, 2024 Resident Creating Document: EMERY ELAINE RESIDENT Has the PT tested + for MRSA If YES, has PT been informed?: No Medical Necessity Reason Pt with a Central, PICC or Fol: No Subjective Review of Systems 18M with PMH of SVT who came to the ED due to shortness of breath, palpitations, nausea, and left-sided sharp chest pain which had resolved by the time of presentation. his smartwatch was showing high heart rate, HR over 200. In the ER, his HR was NSR alternating with atrial tachycardia and bradycardia. He reports NYHA Class III symptoms. He follows with Dr. Thorne as outpatient for SVT and is awaiting an EP appointment. Denies recent headache, vomiting, cough, abdominal pain, or diarrhea. No recent URI symptoms, fever, chills. Reports a similar episode with flu-like symptoms in June and a COVID-19 infection in July. Only takes metoprolol when HR > 100 as advised by commercial analyst. Objective vital signs Vital Sign Date Time Temp Pulse Resp B/P (MAP) Pulse Ox O2 Delivery O2 Flow Rate FiO2 09/16/24 12:31 97.3 76 18 116/62 (80) 97 97.3 09/16/24 04:42 Room Air* 0 21 medications Current Medications Medications Dose Ordered Sig/Temo Route Start Time Stop Time Status Last Admin Dose Admin Acetaminophen 325 mg Q4HP PRN PO 09/16/24 08:30 UNV Sodium Chloride 1,000 ml @ 60 mls/hr [id number] IV 09/16/24 08:30 UNV Examination General Appearance: Alert, Oriented X3 Respiratory: Clear to auscultation, Normal air movement Cardiovascular: Regular rate, Normal S1, Normal S2 Abdominal: No tenderness Neuro: Normal gait, Normal speech, Normal tone laboratory and microbiology Laboratory Tests 09/16/24 02:11 Test 09/16/24 02:11 Range/Units Serum Glucose 84 74-106 mg/dL Problem List/Assessment/Plan Problem List/Assessment/Plan #Possible SVT #Sinus tachycardia #H/o of previous SVT #Chest pain due to tachycardia #Subclinical hypothyroidism Telemetry monitoring -keep k+>4, Mag>2 -UDS neg x ray is normal Dr Thorne consulted NS 60 cc/h Tylenol PRN Case discussed with Dr Tee Arredondo discussed with: Patient, Other (rn) My Orders My Orders Orders - EMERY ELAINE Procedure Category Date Status Time *Consult Dr. Thorne CONS 09/16/24 Transmitted [place] 07:25 Cardiac DIET 09/16/24 Transmitted Diet-2gna,Lofat,Lochol Breakfast Acetaminophen Tablet PHA 09/16/24 Logged (Tylenol Tablet) 08:30 Sodium Chloride 0.9% PHA 09/16/24 Logged 08:30 EMERY ELAINE RESIDENT Sep 16, 2024 14:21
[2024-09-16 17:00] VITALS: BP 117/69; PULSE 94; RESP 20; TEMP 98.1; O2SAT 97
[2024-09-16 20:00] VITALS: PULSE 89
[2024-09-16 21:00] VITALS: BP 109/53; PULSE 83; PULSE 93; RESP 21; TEMP 98.4; O2SAT 97
[2024-09-17] VITALS (7 sets, daily range): BP systolic 92–105; BP diastolic 46–57; PULSE 56–94; RESP 14–19; TEMP 37.3; O2SAT 96–99
[2024-09-17] MEDS ORDERED: ACET1CAP14 PO (10:42)
[2024-09-17] MEDS: ACETAMINOPHEN 325 MG TAB PO PRN (11:49)
--- NOTE | 2024-09-17 12:28 | DVHPN2 ---
Progress Note - Dictate Date Seen: Sep 17, 2024 Has the PT tested + for MRSA If YES, has PT been informed?: No Medical Necessity Reason Pt with a Central, PICC or Fol: No Subjective PT WITH SOB PALPITATION SINUS TACHYCARDIA SECONDARY TO PAIN TROPONIN NEGATIVE ECG NEGATIVE ECHO NL EF STARTED ON CARDIZEM vital signs Vital Sign Date Time Temp Pulse Resp B/P (MAP) Pulse Ox O2 Delivery O2 Flow Rate FiO2 09/17/24 08:30 97.5 94 14 103/57 (72) 96 97.5 09/16/24 20:00 Room Air* 0 21 Total Intake and Output 09/16/24 09/16/24 09/17/24 15:00 23:00 07:00 Intake Total 2478 ml 920 ml Output Total 300 ml 240 ml Balance 2178 ml 680 ml medications Current Medications Medications Dose Ordered Sig/Temo Route Start Time Stop Time Status Last Admin Dose Admin Acetaminophen 325 mg Q4HP PRN PO 09/16/24 08:30 09/17/24 11:49 325 MG Sodium Chloride 1,000 ml @ 60 mls/hr [id number] IV 09/16/24 08:30 09/16/24 09:30 60 MLS/HR laboratory and microbiology Laboratory Tests 09/16/24 02:11 Test 09/16/24 02:11 Range/Units Serum Glucose 84 74-106 mg/dL Problem List SOB PALPITATION SINUS TACHYCARDIA SECONDARY TO PAIN TROPONIN NEGATIVE ECG NEGATIVE ECHO NL EF STARTED ON CARDIZEM Assessment/Plan ELEVATED TSH CONT CARDIZEM Plan discussed with: Patient Critical Care Time(min): 35 IAN NEUMANN MD Sep 17, 2024 12:28
--- NOTE | 2024-09-17 16:06 | DVHDSRES ---
Discharge Summary Date of Admission Resident Creating Document: EMERY ELAINE RESIDENT Sep 16, 2024 at 01:58 Date of Discharge: Sep 17, 2024 Admitting Diagnosis Possible SVT Labs/Diagnostic Data: Laboratory Results Test 09/16/24 11:00 09/16/24 02:11 09/15/24 17:51 Urine Opiates Screen Neg (NEGATIVE) Urine Fentanyl Screen Neg (NEGATIVE) Urine Barbiturates Screen Neg (NEGATIVE) Urine Phencyclidine Screen Neg (NEGATIVE) Urine Amphetamines Screen Neg (NEGATIVE) Urine Benzodiazepines Screen Neg (NEGATIVE) Urine Cocaine Screen Neg (NEGATIVE) Urine Cannabinoids Screen Neg (NEGATIVE) White Blood Count 8.0 10^3/uL (4.4-10.8) Red Blood Count 4.23 10^6/uL (4.5-5.90) Hemoglobin 12.6 g/dL (13.5-17.5) Hematocrit 36.4 % (41.0-53.0) Mean Corpuscular Volume 86.0 fL (80.0-100.0) Mean Corpuscular Hemoglobin 29.7 pg (28.0-32.0) Mean Corpuscular Hemoglobin Concent 34.6 g/dL (32.0-36.0) Red Cell Distribution Width 15.1 % (11.8-14.3) Platelet Count 275 10^3/uL (140-450) Mean Platelet Volume 10.1 fL (6.9-10.8) Neutrophils (%) (Auto) 59.3 % (37.0-80.0) Lymphocytes (%) (Auto) 29.1 % (10.0-50.0) Monocytes (%) (Auto) 9.0 % (0.0-12.0) Eosinophils (%) (Auto) 2.0 % (0.0-7.0) Basophils (%) (Auto) 0.6 % (0.0-2.0) Neutrophils # (Auto) 4.7 10 ^3/uL (1.6-8.6) Lymphocytes # (Auto) 2.3 10 ^3/uL (0.4-5.4) Monocytes # (Auto) 0.7 10 ^3/uL (0-1.3) Eosinophils # (Auto) 0.2 10 ^3/uL (0-0.8) Basophils # (Auto) 0 10 ^3/uL (0-0.2) Nucleated Red Blood Cells 0.1 % Sodium Level 140 mmol/L (136-145) Potassium Level 3.7 mmol/L (3.5-5.1) Chloride Level 108 mmol/L (98-107) Carbon Dioxide Level 20 mmol/L (20-31) Anion Gap 12 (5-15) Blood Urea Nitrogen 7 mg/dL (9-23) Creatinine 0.77 mg/dL (0.700-1.30) Glomerular Filtration Rate Calc 131 mL/min (>90) BUN/Creatinine Ratio 9.1 (10.0-20.0) Serum Glucose 84 mg/dL (74-106) Calcium Level 10.5 mg/dL (8.7-10.4) Magnesium Level 1.9 mg/dL (1.6-2.6) Thyroid Stimulating Hormone (TSH) 6.46 uIU/mL (0.55-4.78) Free Thyroxine (T4) Calculated 1.41 ng/dL (0.89-1.76) Free Triiodothyronine (T3) pg/mL 3.13 pg/mL (2.3-4.2) Troponin I High Sensitivity 9 ng/L (</=54) Other Laboratory Tests 09/16/24 02:11 Brief Hx & Hospital Course: 18-year-old male with PMH of SVT presented to the ED with shortness of breath, palpitations, nausea, and left-sided sharp chest pain, which had resolved by the time of evaluation. His smartwatch recorded heart rates >200 bpm. In the ED, ECG showed normal sinus rhythm with NSR and HR <100. He denies recent headaches, vomiting, cough, abdominal pain, or diarrhea. No recent URI symptoms, fever, or chills. He had a similar flu-like episode in June and COVID-19 in July. He follows with Dr. Thorne for outpatient SVT management and is awaiting EP evaluation. Telemetry monitoring showed sinus tachycardia. Workup included normal troponin, normal chest X-ray, and negative urine drug screen. ECG was negative for acute changes. Thyroid studies showed elevated TSH; with normal t3 and t4. He was continued on NS at 60 cc/h and received Tylenol PRN. Cardizem will continued as outpatient for rate control. FU with Dr Thorne and EP was advised at discharge. General Appearance: Alert, Oriented X3 Respiratory: Clear to auscultation, Normal air movement Cardiovascular: Regular rate, Normal S1, Normal S2 Abdominal: No tenderness Neuro: Normal gait, Normal speech, Normal tone Case discussed with Dr Oliveira Consults/Reason for consult cardiology dr thorne due to possible svt Operations or Procedures CHEST RADIOGRAPH Indication: sob Technique: Frontal and lateral view of the chest was obtained Comparison: None FINDINGS: Lines and Tubes: None Lungs: Clear Pleura: No effusion. No pneumothorax. Cardiomediastinal contours: Unremarkable Bones: Unremarkable IMPRESSION: 1. No evidence of acute disease Condition at Discharge: Stable Final Diagnosis/Problems List #Possible SVT #Sinus tachycardia #H/o of previous SVT #Chest pain due to tachycardia #Subclinical hypothyroidism #ACS ruled out Discharge Disposition: Home Discharge Instruct/Medications Diet: Cardiac 2g Na,low cholest Activity: Light activity Follow Up/Referral: [facility] clinic, fu with dr Thorne Medications: see prescription Discharge Statement: "Patient was advised to return to the ER or call 911 if any headaches, dizziness, shortness of breath, chest pain, abdominal pain, bleeding, fevers, or worsening of medical condition. Patient was counseled about treatment plan, medications, possible side effects, patientverbalized understanding. All questions were answered to the best of my ability. This discharge took greater then 30 minutes in planning, reviewing documentation, counseling the patient, and discussing with other team members." ASSESSMENT ASSESSMENT Assessment possible svt EMERY ELAINE RESIDENT Sep 17, 2024 16:06
== END 2024-09-17 14:10 | disposition home or self-care (01) | DRG 201 ==
LOC: EDUNIT# 16:07 → ER 16:07 → EDBD 16:07 → OVERFLOW 09-16 01:58 → MERGE 09-16 01:58 → OVERFLOW 09-16 02:00 → TELE-EAST 09-16 09:21
PROVIDERS: ADMIT Student in an Organized Health Care Education/Training Program; ATTEND Student in an Organized Health Care Education/Training Program
DX: I47.10 Supraventricular tachycardia, unspecified (principal); E03.8 Other specified hypothyroidism; Z79.899 Other long term (current) drug therapy; Z86.16 Personal history of COVID-19
CPT/HCPCS: 36415; 71046; 80048; 80307; 83735; 84439; 84443; 84481; 84484; 85025; 93005; 99291; G0378